=== PATIENT | female | born 1975 ===

== ENCOUNTER 2021-12-29 09:12 | Outpatient (REF) | payer OTHER, SELFPAY ==
[2021-12-29 10:06] LABS: COVID-19 Test Positive (Negative)
== END 2021-12-29 09:13 | disposition home or self-care (01) ==
LOC: HO.LAB 09:12
PROVIDERS: Visit Provider Internal Medicine
DX: Z20.822 Contact with and (suspected) exposure to COVID-19 (principal)
CPT/HCPCS: 87635; C9803

== ENCOUNTER 2022-01-08 10:44 | Outpatient (REF) | payer OTHER, SELFPAY ==
[2022-01-08 11:40] LABS: COVID-19 Test Negative (Negative)
== END 2022-01-08 10:45 | disposition home or self-care (01) ==
LOC: HO.LAB 10:44
PROVIDERS: Visit Provider Internal Medicine
DX: Z20.822 Contact with and (suspected) exposure to COVID-19 (principal)
CPT/HCPCS: 87635; C9803

== ENCOUNTER 2022-01-25 20:06 | Emergency (ER) | payer OTHER, SELFPAY ==
--- NOTE | 2022-01-25 | ECG_ITS ---
Test Reason : cp Blood Pressure : / mmHG Vent. Rate : 108 BPM Atrial Rate : 108 BPM P-R Int : 142 ms QRS Dur : 070 ms QT Int : 342 ms P-R-T Axes : 062 007 058 degrees QTc Int : 458 ms Sinus tachycardia with frequent Premature ventricular complexes Right atrial enlargement Cannot rule out Anterior infarct , age undetermined Abnormal ECG No previous ECGs available Referred By: Generic ED Physician Electronically Signed By:DERIAN MCCARTHY MD
--- NOTE | ~2022-01-25 | XR_ITS ---
EXAMINATION: XR CHEST CLINICAL INFORMATION: Shortness of breath. Evaluate for pneumonia. COMPARISON: None TECHNIQUE: AP view of the chest was obtained. FINDINGS: Prominent cardiomediastinal silhouette with diffuse interstitial thickening. No focal airspace opacity. No significant pleural effusion. No pneumothorax. No acute osseous abnormalities. XR/XR chest 1V IMPRESSION: Prominent cardiomediastinal silhouette could be seen with cardiomegaly. Correlate with medical history. Increased interstitial markings is nonspecific and could be associated with pulmonary edema, atypical infections, asthma or reactive airways disease.
[2022-01-25 20:35] VITALS: BP 189/96; PULSE 56; RESP 24; TEMP 37.1; O2SAT 97; BMI 69.1
[2022-01-25 20:59] LABS: MANUAL DIFF FLAG NO
[2022-01-25 21:01] LABS: Basophils Absolute Auto 0.1 X10*3/uL (0.0-0.2); Basophils Percent Auto 0.7 % (0-2); Eosinophils Absolute Auto 0.4 X10*3/uL (0.0-0.4); Eosinophils Percent Auto 5.8 % (0-4); Hematocrit 38.9 % (37.0-47.0); Hemoglobin 12.6 g/dl (12.0-16.0); Imm Gran Abs Auto 0.04 X10*3/uL (0.00-0.03); Imm Gran Pct Auto 0.6 % (0.0-0.4); Lymphocytes Absolute Auto 1.7 X10*3/uL (1.2-4.9); Mean Corpuscular HGB Conc 32.4 g/dl (31.0-35.0); Mean Corpuscular Volume 86.4 fL (80.0-98.0); Mean Platelet Volume 10.2 fL (9.4-12.3); Monocytes Absolute Auto 0.7 X10*3/uL (0.1-1.2); Monocytes Percent Auto 9.7 % (2-11); Neutrophils Absolute Auto 3.9 x10*3/uL (2.0-8.3); Neutrophils Percent Auto 58.2 % (45-73); Platelet Count 278 X10*3/uL (160-400); White Blood Count 6.7 X10*3/uL (4.8-10.8)
[2022-01-25 21:11] VITALS: BP 150/87; PULSE 84; RESP 20; O2SAT 96
[2022-01-25 21:16] LABS: COVID-19 Test Negative (Negative); IDNOW Serial# 9DB6401D
[2022-01-25 21:22] LABS: Alanine Aminotransferase 25 U/L (0-31); Alkaline Phosphatase 102 U/L (39-117); Anion Gap 15 (12-20); Aspartate Amino Transferase 18 U/L (5-31); Bilirubin Total 0.4 mg/dL (0.0-1.0); Blood Urea Nitrogen 11 mg/dL (9-16); Calcium 8.9 mg/dL (8.4-10.2); Carbon Dioxide 23 mmol/L (22-29); Chloride 105 mmol/L (96-108); Creatinine Clr Calc Pharmacy 115.9; Estimated Glomerular Filt Rate > 60; Glucose Random 181 mg/dL (60-115); Potassium 3.8 mmol/L (3.3-5.1); Sodium 139 mmol/L (135-145); Total Protein 7.1 g/dL (6.5-8.0)
--- NOTE | 2022-01-25 21:24 | ED_ITS ---
HPI - General Adult General Chief complaint: Upper Respiratory Symptoms Stated complaint: right sided pain, swollen side Time Seen by Provider: 01/25/22 21:09 Source: patient Mode of arrival: ambulatory Limitations: no limitations History of Present Illness HPI narrative: Patient comes to the emergency room complaining of right lower back pain for over a month, worsened by coughing. Patient states that she has been seen by her primary care physician. Patient has also been seen by her director of development and marketing. Patient denies chest pain, no hematuria or dysuria. Patient states that she has been taking a large amount of cranberry juice in case this is a UTI. Denies dysuria or hematuria. Patient also reports pitting edema in the lower extremities for the last 3-4 weeks to Related Data Previous Rx's Medication Instructions Recorded cyclobenzaprine 10 mg tablet 10 mg PO TID PRN muscle spasm #10 01/26/22 tabs furosemide 20 mg tablet (Lasix) 10 mg PO BID #7 tabs 01/26/22 Allergies Allergy/AdvReac Type Severity Reaction Status Date / Time No Known Allergies Allergy Verified 01/25/22 21:17 Review of Systems Review of Systems: Constitutional : No Weight loss, No Fever, No Chills, No Night Sweats, No Fatigue, No Malaise ENT/Mouth : No Hearing loss, No Ear Pain, No Nasal Congestion, No Sinus Pain, No Hoarseness, No sore throat, No Rhinorrhea, No Swallowing Difficulty Eyes: No Eye Pain, No Swelling, No Redness, No Foreign Body, No Discharge, No Vision Changes Cardiovascular : No Chest Pain, new lower extremity edema Respiratory : Calming of cough, wheezing, intermittent shortness of breath. Gastrointestinal : No Nausea, No Vomiting, No Diarrhea, No Constipation, No abdominal Pain, No Hematochezia, No Melena Genitourinary : no irregular bleeding, No Dysuria, No Urinary Frequency, No Hematuria, No Urinary Incontinence, No Urgency, No Flank Pain, No Urinary Flow Changes, No Hesitancy Musculoskeletal : No joint pain, No Myalgias, No Joint Swelling, complaining of lower back pain on the right side Skin : No Skin Lesions, No rash Neuro : No Weakness, No Numbness, No Paresthesias, No Loss of Consciousness, No Dizziness, No Headache Psych : No Anxiety/Panic, No Depression, No SI/HI/AH/VH, No Social Issues, Heme/Lymph: No Bruising, No Bleeding,No Lymphadenopathy Endocrine : No Polyuria, No Polydipsia, No Temperature Intolerance [facility] Past Medical History Medical History (Updated 01/26/22 @ 00:17 by Alice Lei MD) Anxiety Asthma Bipolar disorder Depression Hypertension Morbid obesity Social History Social History Advance Directives: No Advance Directives Information Provided: Yes Physical Exam ED Vital Signs: Vital Signs - 24 hr 01/25/22 20:35 01/25/22 21:11 01/25/22 21:11 Temperature 98.7 F Pulse Rate 56 84 Respiratory Rate 24 H 20 Blood Pressure 189/96 H 150/87 H Pulse Oximetry 97 96 96 Oxygen Delivery Method Room Air Room Air Room Air 01/25/22 21:36 01/25/22 23:18 Temperature Pulse Rate 62 95 Respiratory Rate 20 22 H Blood Pressure 137/62 Pulse Oximetry 94 Oxygen Delivery Method Room Air BMI result Body Mass Index 69.1 Const Other: Appearance: Alert. Oriented X3. No acute distress. Patient is morbidly obese Eyes: Pupils equal, round and reactive to light. ENT: Pharynx normal. Neck: Normal inspection. Neck supple. No lymph nodes noted. No crepitus CVS: Normal heart rate and rhythm. Pulses normal. Normal S1 and S2 Respiratory: No respiratory distress. Bilateral wheezing, moderate air movement, oxygen saturation 96% on room air Abdomen: Soft and nontender. No rigidity. No distention. Skin: Skin warm and dry. Normal skin color. Normal skin turgor. Extremities: +1 pitting edema bilaterally, No Lacerations. No Rash Neuro: Oriented X 3. No motor deficit. No sensory deficit. Moving all extremities. No slurred speech. CN 2 through 12 grossly intact Psych: calm, cooperative, normal affect Course Course Course Narrative: Urine, labs pending, COVID test pending as well. Patient is receiving a breathing treatment, IV Solu-Medrol, magnesium Breathing better, oxygen saturation remains 96% on room ai. Urinalysi negative for UTI. Patient will be given 3 days of Lasix for the lower extremity edema. Patient instructed to follow-up with her primary care physician. Medical Decision Making Lab Data Result diagrams: 01/25/22 20:51 01/25/22 20:51 Labs: Lab Results 06/19/22 06/19/22 06/19/22 Range/Units 20:51 20:51 20:51 WBC 6.7 (4.8-10.8) X10*3/uL RBC 4.50 (4.20-5.50) X10*6/uL Hgb 12.6 (12.0-16.0) g/dl Hct 38.9 (37.0-47.0) % MCV 86.4 (80.0-98.0) fL MCH 28.0 (27.0-33.0) pg MCHC 32.4 (31.0-35.0) g/dl RDW 15.0 (11.0-16.0) % Plt Count 278 (160-400) X10*3/uL MPV 10.2 (9.4-12.3) fL Immature Gran % (Auto) 0.6 H (0.0-0.4) % Neut % (Auto) 58.2 (45-73) % Lymph % (Auto) 25.0 (20-40) % [place] % (Auto) 9.7 (2-11) % Eos % (Auto) 5.8 H (0-4) % Baso % (Auto) 0.7 (0-2) % Lymph # (Auto) 1.7 (1.2-4.9) X10*3/uL [place] # (Auto) 0.7 (0.1-1.2) X10*3/uL Eos # (Auto) 0.4 (0.0-0.4) X10*3/uL Baso # (Auto) 0.1 (0.0-0.2) X10*3/uL Abs Immat Gran (auto) 0.04 H (0.00-0.03) X10*3/uL Absolute Neuts (auto) 3.9 (2.0-8.3) x10*3/uL Absolute Nucleated RBC 0.000 (0.0-0.012) X10*3/uL Nucleated RBC % (auto) 0.0 (0.0-0.2) /100WBC Sodium 139 (135-145) mmol/L Potassium 3.8 (3.3-5.1) mmol/L Chloride 105 (96-108) mmol/L Carbon Dioxide 23 (22-29) mmol/L Anion Gap 15 (12-20) BUN 11 (9-16) mg/dL Creatinine 0.93 (0.5-1.4) mg/dL Estim Creat Clear Calc 115.9 Estimated GFR > 60 Random Glucose 181 H (60-115) mg/dL Calcium 8.9 (8.4-10.2) mg/dL Total Bilirubin 0.4 (0.0-1.0) mg/dL AST 18 (5-31) U/L ALT 25 (0-31) U/L Alkaline Phosphatase 102 (39-117) U/L B-Natriuretic Peptide 78 (<100) pg/mL Total Protein 7.1 (6.5-8.0) g/dL Albumin 4.0 (3.5-5.0) g/dL Urine Color Urine Appearance Urine pH (5.0-8.0) Ur Specific [place] (1.005-1.025) Urine Protein (NEG-TRACE) MG/DL Urine Glucose (UA) (NEG) MG/DL Urine Ketones (NEG) MG/DL Urine Blood (NEG) Urine Nitrite (NEG) Ur Leukocyte Esterase (NEG) COVID-19 (JANIS) (Negative) COVID-19 Clin Com 01/25/22 01/25/22 Range/Units 20:52 23:48 WBC (4.8-10.8) X10*3/uL RBC (4.20-5.50) X10*6/uL Hgb (12.0-16.0) g/dl Hct (37.0-47.0) % MCV (80.0-98.0) fL MCH (27.0-33.0) pg MCHC (31.0-35.0) g/dl RDW (11.0-16.0) % Plt Count (160-400) X10*3/uL MPV (9.4-12.3) fL Immature Gran % (Auto) (0.0-0.4) % Neut % (Auto) (45-73) % Lymph % (Auto) (20-40) % [place] % (Auto) (2-11) % Eos % (Auto) (0-4) % Baso % (Auto) (0-2) % Lymph # (Auto) (1.2-4.9) X10*3/uL [place] # (Auto) (0.1-1.2) X10*3/uL Eos # (Auto) (0.0-0.4) X10*3/uL Baso # (Auto) (0.0-0.2) X10*3/uL Abs Immat Gran (auto) (0.00-0.03) X10*3/uL Absolute Neuts (auto) (2.0-8.3) x10*3/uL Absolute Nucleated RBC (0.0-0.012) X10*3/uL Nucleated RBC % (auto) (0.0-0.2) /100WBC Sodium (135-145) mmol/L Potassium (3.3-5.1) mmol/L Chloride (96-108) mmol/L Carbon Dioxide (22-29) mmol/L Anion Gap (12-20) BUN (9-16) mg/dL Creatinine (0.5-1.4) mg/dL Estim Creat Clear Calc Estimated GFR Random Glucose (60-115) mg/dL Calcium (8.4-10.2) mg/dL Total Bilirubin (0.0-1.0) mg/dL AST (5-31) U/L ALT (0-31) U/L Alkaline Phosphatase (39-117) U/L B-Natriuretic Peptide (<100) pg/mL Total Protein (6.5-8.0) g/dL Albumin (3.5-5.0) g/dL Urine Color YELLOW Urine Appearance CLEAR Urine pH 7.0 (5.0-8.0) Ur Specific [place] 1.020 (1.005-1.025) Urine Protein NEG (NEG-TRACE) MG/DL Urine Glucose (UA) NEG (NEG) MG/DL Urine Ketones NEG (NEG) MG/DL Urine Blood NEG (NEG) Urine Nitrite NEG (NEG) Ur Leukocyte Esterase NEG (NEG) COVID-19 (JANIS) Negative (Negative) COVID-19 Clin Com See Note Imaging Data Chest x-ray: Radiologist's impression: FINDINGS: Prominent cardiomediastinal silhouette with diffuse interstitial thickening. No focal airspace opacity. No significant pleural effusion. No pneumothorax. No acute osseous abnormalities. XR/XR chest 1V IMPRESSION: Prominent cardiomediastinal silhouette could be seen with cardiomegaly. Correlate with medical history. ? Increased interstitial markings is nonspecific and could be associated with pulmonary edema, atypical infections, asthma or reactive airways disease. ? Discharge Plan Discharge Clinical Impression: Acute right-sided back pain, Asthma, Bilateral lower extremity edema Patient Disposition: Home, Self-Care Instructions: Asthma (ED), Edema (ED) Additional Instructions: Please follow-up with your primary care physician and director of development and marketing tomorrow. If you have any worsening or new symptoms, please return to the emergency room or call 911 Prescriptions: New cyclobenzaprine 10 mg tablet 10 mg PO TID PRN (Reason: muscle spasm) Qty: 10 0RF furosemide [Lasix] 20 mg tablet 10 mg PO BID Qty: 7 0RF
[2022-01-25] MEDS: Albuterol Sulfate (0.083%) 2.5 MG/3 ML VIAL.NEB 5 MG INHALE (21:34)
[2022-01-25 21:36] VITALS: PULSE 62; RESP 20; O2SAT 98
[2022-01-25 21:47] LABS: B Type Natriuretic Peptide 78 pg/mL (<100)
[2022-01-25] MEDS: Magnesium Sulfate/H2O 2 GM/50 ML PIGGYBACK IV (21:48)
[2022-01-25] MEDS: Benzonatate 100 MG CAPSULE 200 MG PO (21:48)
[2022-01-25] MEDS: methylPREDNISolone Sod Succ 125 MG/2 ML VIAL IVPUSH (21:48)
[2022-01-25 23:18] VITALS: BP 137/62; PULSE 95; RESP 22; O2SAT 94
[2022-01-26] LABS: Appearance Urine CLEAR; Color Urine YELLOW; Glucose Urine UA NEG (NEG); Leukocyte Esterase Urine NEG (NEG); Nitrite Urine NEG (NEG); Urine Blood NEG (NEG); Urine Ketones NEG (NEG); Urine Protein NEG (NEG-TRACE)
== END 2022-01-26 00:30 | disposition home or self-care (01) ==
PROVIDERS: Emergency Provider Emergency Medicine
DX: M54.50 Low back pain, unspecified (principal); R60.0 Localized edema; R07.89 Other chest pain; J45.909 Unspecified asthma, uncomplicated; R06.02 Shortness of breath; Z20.822 Contact with and (suspected) exposure to COVID-19; Z79.899 Other long term (current) drug therapy
CPT/HCPCS: 36415; 71045; 80053; 81003; 83880; 85025; 87635; 93005; 94640; 94644; 96365; 96366; 99284; 99285; J2930; J3475

== ENCOUNTER 2022-01-27 10:18 | Outpatient (REF) | payer OTHER, SELFPAY ==
[2022-01-27 10:42] LABS: MANUAL DIFF FLAG NO
[2022-01-27 11:47] LABS: Basophils Absolute Auto 0.1 X10*3/uL (0.0-0.2); Basophils Percent Auto 0.6 % (0-2); Eosinophils Absolute Auto 0.1 X10*3/uL (0.0-0.4); Eosinophils Percent Auto 0.7 % (0-4); Hematocrit 40.2 % (37.0-47.0); Hemoglobin 12.8 g/dl (12.0-16.0); Imm Gran Abs Auto 0.07 X10*3/uL (0.00-0.03); Imm Gran Pct Auto 0.8 % (0.0-0.4); Lymphocytes Absolute Auto 2.9 X10*3/uL (1.2-4.9); Lymphocytes Percent Auto 31.9 % (20-40); Mean Corpuscular HGB Conc 31.8 g/dl (31.0-35.0); Mean Corpuscular Hemoglobin 28.1 pg (27.0-33.0); Mean Corpuscular Volume 88.4 fL (80.0-98.0); Monocytes Absolute Auto 0.6 X10*3/uL (0.1-1.2); Neutrophils Absolute Auto 5.3 x10*3/uL (2.0-8.3); Platelet Count 282 X10*3/uL (160-400); Red Blood Count 4.55 X10*6/uL (4.20-5.50); Red Cell Distribution Width 15.5 % (11.0-16.0)
[2022-01-27 12:30] LABS: Erythrocyte Sedimentation Rate 42 MM/HR (0-20)
[2022-01-27 12:33] LABS: Anion Gap 14 (12-20); Blood Urea Nitrogen 16 mg/dL (9-16); Calcium 9.2 mg/dL (8.4-10.2); Carbon Dioxide 23 mmol/L (22-29); Chloride 107 mmol/L (96-108); Estimated Glomerular Filt Rate > 60; Glucose Random 122 mg/dL (60-115); Potassium 4.2 mmol/L (3.3-5.1); Sodium 140 mmol/L (135-145)
[2022-02-02 20:42] LABS: IgA 335 mg/dL (47-310); IgG 1018 mg/dL (600-1640); IgM 119 mg/dL (50-300)
== END 2022-01-27 10:19 | disposition home or self-care (01) ==
LOC: HO.LAB 10:18
PROVIDERS: Visit Provider Hospitalist
DX: J45.909 Unspecified asthma, uncomplicated (principal); I27.20 Pulmonary hypertension, unspecified; I51.7 Cardiomegaly
CPT/HCPCS: 36415; 80048; 82784; 82785; 85025; 85652; 86003; 99202

== ENCOUNTER 2022-02-09 18:32 | Emergency (ER) | payer OTHER, SELFPAY ==
[2022-02-09 18:40] VITALS: BP 186/117; PULSE 78; RESP 20; TEMP 36.5; O2SAT 98; BMI 68.1
[2022-02-09 21:38] VITALS: BP 188/101; PULSE 95; RESP 26; O2SAT 98
--- NOTE | 2022-02-09 21:48 | ED_ITS ---
HPI - General Adult General Chief complaint: Headache Stated complaint: headaches/high BP 193/95/vomiting Time Seen by Provider: 02/09/22 21:43 Source: patient Limitations: no limitations History of Present Illness HPI narrative: this is a 46-year-old female with a history of migraines, who has not had a severe headache and several years, who had gradual onset of a headache this morning, which is central and was associated with about 4 versus vomiting. The patient denies any visual changes. She denies any neck stiffness or photophobia. She denies any abdominal pain. She denies any focal weakness or numbness in arms or face or legs. She also noted her blood pressure was high today. She is on lisinopril. She states her headache is about a 10/10 in severity, dull. Related Data Home Medications Medication Instructions Recorded Confirmed albuterol sulfate 2.5 mg inhalation Q4-6H PRN 01/27/22 albuterol sulfate 90 mcg/actuation 2 puff inhalation Q6H PRN 01/27/22 aerosol inhaler (ProAir HFA) benzonatate 100 mg capsule 100 mg PO TID PRN cough 01/27/22 duloxetine 20 mg capsule,delayed 40 mg PO DAILY 01/27/22 release duloxetine 60 mg capsule,delayed 60 mg PO DAILY 01/27/22 release fluticasone fur. 200 mcg-umeclid 1 ea inhalation DAILY 01/27/22 62.5 mcg-vilant 25 mcg inhalat.powder (Trelegy Ellipta) montelukast 10 mg tablet 10 mg PO DAILY 01/27/22 Previous Rx's Medication Instructions Recorded cyclobenzaprine 10 mg tablet 10 mg PO TID PRN muscle spasm #10 01/26/22 tabs furosemide 20 mg tablet (Lasix) 10 mg PO BID #7 tabs 01/26/22 benzonatate 200 mg capsule 200 mg PO BID PRN cough 30 days 01/27/22 #60 caps furosemide 20 mg tablet (Lasix) 20 mg PO DAILY #14 tabs 01/27/22 prednisone 20 mg tablet See Rx Instructions PO DAILY 10 01/27/22 days #15 tabs dextromethorphan-guaifenesin 5 10 ml PO Q6H PRN cough 14 days 02/03/22 mg-100 mg/5 mL oral liquid #400 mL (Cough-Chest Congestion DM) Allergies Allergy/AdvReac Type Severity Reaction Status Date / Time No Known Allergies Allergy Verified 02/09/22 18:47 Review of Systems Review of Systems: Yes all other systems are reviewed and are negative Constitutional: Constitutional: Reports as per HPI, Denies fever(s) and Reports headache(s) Eyes: Eyes: Reports as per HPI and Reports no additional eye complaints ENT: Reports system reviewed and no additional complaints, except as documented, Reports as per HPI, Reports headache(s), Denies nasal congestion, Denies nasal discharge, Denies neck pain and Denies sore throat Cardiovascular: Cardiovascular: Reports as per HPI, Denies chest pain and Denies dyspnea Respiratory: Respiratory: Reports as per HPI, Denies cough and Denies dyspnea Gastrointestinal: Gastrointestinal: Reports as per HPI, Denies abdominal pain, Denies diarrhea, Reports nausea and Reports vomiting Genitourinary: Genitourinary: Reports as per HPI, Denies hematuria, Denies urinary frequency and Denies dysuria Musculoskeletal: Musculoskeletal: Reports no additional musculoskeletal complaints, Denies neck pain and Denies numbness Integumentary/Breasts: Skin/Breast: Reports as per HPI and Denies rash Neurologic: Reports as per HPI, Reports headache(s), Denies focal weakness and Denies numbness Psychiatric: Psychiatric: Reports no additional psychiatric complaints and Reports as per HPI Endocrine: Endocrine: Reports no additional endocrine complaints and Reports as per HPI Hematologic/Lymphatic: Hematologic/Lymphatic: Reports no additional hematologic/lymphatic complaints, Reports as per HPI and Reports other (No peripheral edema) [facility] Past Medical History Medical History (Updated 02/09/22 @ 23:47 by Eduardo Salazar MD) Anxiety Asthma Bipolar disorder Depression Hypertension Social History Social History (Updated 01/27/22 @ 09:49 by BARBARA Foster) Patient Tobacco Use Status: Never used Tobacco Advance Directives: No Advance Directives Information Provided: No Physical Exam ED Vital Signs: Vital Signs - 24 hr 02/09/22 18:40 02/09/22 21:38 02/09/22 22:11 Temperature 97.7 F Pulse Rate 78 95 94 Respiratory Rate 20 26 H Blood Pressure 186/117 H 188/101 H 165/92 H Pulse Oximetry 98 98 98 Oxygen Delivery Method Room Air Room Air Room Air BMI result Body Mass Index 68.1 Const Other: Morbidly obese General: no acute distress Orientation/consciousness: patient oriented x3 HENMT Head: Yes normal to inspection General nose exam: Normal external nose present Mouth: moist mucous membranes Throat: Yes posterior oropharynx normal, Yes tonsils normal and Yes uvula midline Eyes Eyelids: Yes eyelids normal Conjunctivae: conjunctivae normal Pupils: Equal, round and reactive pupils present Neck Neck: Yes supple Resp Effort & Inspection: normal respiratory effort Auscultation: clear to auscultation bilaterally Cardio Rate: regular rate Rhythm: regular rhythm Heart sounds: S1 normal heart sound present, S2 normal heart sound present, no gallops, no murmurs and no rubs GI Inspection: No distended Palpation (GI): Soft to palpation and nontender Auscultation: normal bowel sounds Skin General skin exam: other (Warm and dry) Neuro General: patient oriented x3 and CN's II-XI intact bilaterally Cranial nerves: Yes Equal, round and reactive pupils present Extrem General: Yes no pedal edema Psych Affect: normal affect Attitude: cooperative Course Course Course Narrative: Patient was treated with Toradol IM, Reglan IM, Ativan IM, clonidine 0.2 mg p.o.. Her blood pressure improved and she felt much better. Patient has noted that she has been urinating more frequently but denied any dysuria or urinary frequency. Blood sugar was checked and was 155. Patient was recently put on Lasix, however she states she has not taken it recently. Offered urinalysis but the patient was wanting to go home, can follow-up with her primary care physician Medical Decision Making Lab Data Labs: Lab Results 02/09/22 Range/Units 23:26 POC Glucose 155 H (60-115) mg/dL Discharge Plan Discharge Clinical Impression: Headache, Vomiting, Hypertension Patient Disposition: Home, Self-Care Instructions: Acute Headache (ED), Acute Nausea and Vomiting (ED), Chronic Hypertension (ED) Additional Instructions: Follow-up with primary care physician. Continue current medications. If you continue having urinary frequency, have your urine checked by her primary care physician Prescriptions: No Action Cough-Chest Congestion DM 5-100 mg/5 mL liquid 10 ml PO Q6H PRN (Reason: cough) 14 Days Qty: 400 0RF cyclobenzaprine 10 mg tablet 10 mg PO TID PRN (Reason: muscle spasm) Qty: 10 0RF furosemide [Lasix] 20 mg tablet 10 mg PO BID Qty: 7 0RF duloxetine 60 mg capsule,delayed release(DR/EC) 60 mg PO DAILY duloxetine 20 mg capsule,delayed release(DR/EC) 40 mg PO DAILY montelukast 10 mg tablet 10 mg PO DAILY Trelegy Ellipta 200-62.5-25 mcg blister with device 1 ea inhalation DAILY benzonatate 100 mg capsule 100 mg PO TID PRN (Reason: cough) albuterol sulfate 2.5 mg /3 mL (0.083 %) solution for nebulization 2.5 mg inhalation Q4-6H PRN albuterol sulfate [ProAir HFA] 90 mcg/actuation HFA aerosol inhaler 2 puff inhalation Q6H PRN benzonatate 200 mg capsule 200 mg PO BID PRN (Reason: cough) 30 Days Qty: 60 5RF furosemide [Lasix] 20 mg tablet 20 mg PO DAILY Qty: 14 0RF prednisone 20 mg tablet See Rx Instructions PO DAILY 10 Days Qty: 15 0RF Rx Instructions: PO daily; Take 2 tabs daily x 5 days, then 1 tablet daily x 5 days Interventions: ED Discharge Assessment Last Done: 02/09/22 23:56 Discharge Date/Time: 02/10/22 00:00
[2022-02-09] MEDS: Ketorolac Tromethamine 30 MG/ML VIAL IM (21:54)
[2022-02-09] MEDS: cloNIDine HCL 0.2 MG TABLET PO (21:54)
[2022-02-09] MEDS: LORazepam 1 MG TABLET PO (21:54)
[2022-02-09] MEDS: Metoclopramide HCl 10 MG/2 ML VIAL IM (21:55)
[2022-02-09 22:11] VITALS: BP 165/92; PULSE 94; O2SAT 98
[2022-02-09 23:30] LABS: Glucose, Whole Blood 155 mg/dL (60-115)
== END 2022-02-10 | disposition home or self-care (01) ==
PROVIDERS: Emergency Provider Emergency Medicine
DX: R51.9 Headache, unspecified (principal); I10 Essential (primary) hypertension; R11.10 Vomiting, unspecified
CPT/HCPCS: 82947; 96372; 99284; J1885; J2765

== ENCOUNTER → 2022-02-24 09:34 | Outpatient (BNVA) | payer OTHER, SELFPAY | PROVIDERS: PCP Internal Medicine; Visit Provider Hospitalist | DX: J45.50 Severe persistent asthma, uncomplicated (principal); G47.33 Obstructive sleep apnea (adult) (pediatric); I51.7 Cardiomegaly | CPT/HCPCS: 99212 ==

== ENCOUNTER → 2022-03-12 10:35 | Outpatient (REF) | payer OTHER, SELFPAY ==
--- NOTE | 2022-03-12 10:37 | CA_ITS ---
Transthoracic Echocardiogram Patient (Last, First, Middle): Mariaelena Green J Gender: Female Date of : 1975 Age: 46 Procedure Date: 03/12/2022 Procedure Type: Transthoracic Echocardiogram Location: OP Height: 154.94 cm Weight: 162.84 kg BSA: 2.42 m2 Heart Rate: bpm BP: 130 / 75 mmHg [employer] Pl[employer] Workman: TO Referring MD: Juice Major MD Envelope Sealer: Sebastian Goldman MD Symptoms: I27.20 - Pulmonary hypertension, unspecified Study Quality: Technically Difficult/Contrast ECG Rhythm: Sinus Conclusions: - 1. Technically limited study despite use of contrast agent 2. Normal LV systolic function and diastolic function 3. Limited visualization of cardiac valves with normal cardiac valvular Doppler 4. Normal RV systolic pressure Findings Procedure Information Contrast agent, definity, is being given per protocol without apparent complications. Left Ventricle Normal left ventricular size, thickness, and systolic function. The visually estimated ejection fraction is between 60-65%. Spectral Doppler is indicative of a normal filling pattern. Right Ventricle Normal right ventricular cavity size and systolic function. Atria The left atrium is normal in size. Interatrial shunt cannot be excluded. The right atrium was not well visualized. Aortic Valve The aortic valve was not well visualized. There is no aortic valve stenosis. There is no aortic valve regurgitation. Mitral Valve Likely normal mitral valve structure and function. There is trace mitral valve regurgitation. There is no mitral valve stenosis. Pulmonic Valve The pulmonic valve was not well visualized. Tricuspid Valve The tricuspid valve was not well visualized. There is trace tricuspid valve regurgitation. The right ventricular systolic pressure is normal. The right ventricular systolic pressure is 21 mmHg. There is no evidence of pulmonary hypertension. Great Vessels The aorta was not well visualized. The pulmonary artery was not well visualized. Venous The inferior vena cava is normal in size. Pericardium/Pleural The pericardium was not well visualized. Prior Study Comparison No prior study available for comparison. Measurements 2D Linear Measurements IVSd: 0.89 0.6-0.9/0.6-1.0 cm LVIDd: 5.57 3.9-5.3/4.2-5.9 cm LVIDd Index: 2.30 2.4-3.2/2.2-3.1 cm/m2 LVIDs: 3.93 2.0-3.6 cm LVPWd: 0.97 0.7-1.1 cm LA Diam: 4.00 2.7-3.8/3.0-4.0 cm LAIDs Index: 1.65 1.5-2.3 cm/m2 LV Mass: 246.17 67-162/88-224 g LV Mass Index: 101.72 43-95/49-115 g/m2 LVOT Diam: 2.00 3.0+(-)1.3 cm 2D Systolic Function EF 4C: 58.30 >55% EF 2C: 61.60 >55% EF BiP: 60.90 >55% Mitral Valve MV Pk E: 0.95 MV PK A: 0.49 MV Decel Time: 176.00 E/A: 1.90 E'Lateral: 10.10 E'Medial: 7.83 E/E' Med: 12.10 E/E' Lat: 9.40 PHT: 48.00 MVA PHT: 4.58 Decel Major: 5.99 Aortic Valve AoV Pk Tarun: 1.51 AoV Mn Tarun: 0.99 AoV VTI: 0.29 AoV Pk Grad: 9.00 Aov Mn Grad: 4.00 RANDY Cont.VTI: 2.55 LVOT LVOT Pk Tarun: 1.20 LVOT Mn Tarun: 0.76 LVOT VTI: 0.23 LVOT Pk Grad: 6.00 LVOT Mn Grad: 3.00 LVOT Diam: 2.00 LVOT Area: 3.14 Diastolic Function MV Pk E: 0.95 MV Pk A: 0.49 E/A: 1.90 E'Medial: 7.83 E/E' Med: 12.10 E' Laterial: 10.10 E/E' Lat: 9.40 Right Ventricle TAPSE (mm): 27.20 TVS' Tarun: 12.70 Tricuspid Valve TR Pk Tarun: 1.81 TR Pk Grad: 13.00 RA Press: 8.00 RVSP: 21.00 Great Vessels Aorta Sinus of Valsalva: 2.84 2.0-3.5 cm Ao Asc: 2.90 2.1-3.4 cm Updated in Other Vendor System with Status of Final Sebastian Goldman MD electronically signed on 03/13/2022 4:50:23 PM with status of Final
== END ==
LOC: HO.CARD 10:35
PROVIDERS: Visit Provider Hospitalist
DX: I27.20 Pulmonary hypertension, unspecified (principal)
CPT/HCPCS: 93306; Q9957

== ENCOUNTER 2022-04-29 11:05 | Outpatient (REF) | payer OTHER, SELFPAY ==
[2022-04-29 11:48] LABS: COVID-19 Test Negative (Negative); IDNOW Serial# 16C4AD1C
== END 2022-04-29 11:06 | disposition home or self-care (01) ==
LOC: HO.LAB 11:05
PROVIDERS: Visit Provider Internal Medicine
DX: Z20.822 Contact with and (suspected) exposure to COVID-19 (principal)
CPT/HCPCS: 87635; C9803

== ENCOUNTER → 2022-05-08 13:29 | Outpatient (BNVA) | payer OTHER, SELFPAY | PROVIDERS: PCP Internal Medicine; Visit Provider Hospitalist | DX: J45.51 Severe persistent asthma with (acute) exacerbation (principal); I51.7 Cardiomegaly; G47.33 Obstructive sleep apnea (adult) (pediatric); Z79.899 Other long term (current) drug therapy | CPT/HCPCS: 99212 ==

== ENCOUNTER → 2022-07-10 13:55 | Outpatient (BNVA) | payer OTHER, SELFPAY | PROVIDERS: PCP Internal Medicine; Visit Provider Hospitalist | DX: J45.51 Severe persistent asthma with (acute) exacerbation (principal); I51.7 Cardiomegaly; G47.33 Obstructive sleep apnea (adult) (pediatric); Z23 Encounter for immunization; Z79.899 Other long term (current) drug therapy | CPT/HCPCS: 90471; 90686; 99212 ==

== ENCOUNTER → 2022-10-27 13:57 | Outpatient (BNVA) | payer OTHER, SELFPAY | PROVIDERS: PCP Internal Medicine; Visit Provider Hospitalist | DX: J45.51 Severe persistent asthma with (acute) exacerbation (principal); G47.33 Obstructive sleep apnea (adult) (pediatric); I51.7 Cardiomegaly; Z79.899 Other long term (current) drug therapy | CPT/HCPCS: 99212 ==

== ENCOUNTER 2023-02-01 16:53 | Emergency (ER) | payer OTHER, SELFPAY ==
--- NOTE | ~2023-02-01 | US_ITS ---
EXAMINATION: US VENOUS ULTRASOUND WITH DOPPLER LOWER EXTREMITY, RIGHT CLINICAL INFORMATION: Pain and vomiting COMPARISON: None available. TECHNIQUE: Ultrasound of the deep veins is performed from the hip to the calf with compression sonography and color and pulse Doppler assessment. Spectral analysis with color-flow imaging is performed. FINDINGS: The exam is limited due to patient's body habitus. The exam is limited due to patient's body habitus. There is normal venous compression and respiratory variation and augmented flow. The visualized common femoral vein, superficial femoral vein, profunda femoral vein, popliteal vein, and the trifurcation region shows no evidence of deep venous thrombosis. Peroneal vein is not seen. There is small Plasencia's cyst measuring 4.3 x 1.2 x 3.0 cm. If the patient's symptoms persist, followup ultrasound in 5 days 7 days might be of value to exclude proximal propagation from a non-visualized calf vein. US/US venous duplex LE RT IMPRESSION: No DVT demonstrated in the right lower extremity.
[2023-02-01 17:45] VITALS: BP 158/80; PULSE 50; TEMP 36.8; O2SAT 96; BMI 67.2
--- NOTE | 2023-02-01 17:46 | ED_ITS ---
HPI - Extremity Problem General Chief complaint: Extremity Injury, Lower Stated complaint: right leg pain Time Seen by Provider: 02/01/23 21:16 Source: patient Mode of arrival: ambulatory Limitations: no limitations History of Present Illness MD Complaint: joint swelling (Right knee) and joint pain Onset (ago): month(s) (1) Pain Consistency: constant Location: right and knee Severity scale (1-10): 7 Quality: aching Radiation: none Relieving factors: nothing Exacerbating factors: range of motion, weight bearing, walking and palpation Associated symptoms: denies other symptoms Related Data Home Medications Medication Instructions Recorded Confirmed duloxetine 20 mg capsule,delayed 40 mg PO DAILY 01/27/22 release duloxetine 60 mg capsule,delayed 60 mg PO DAILY 01/27/22 release montelukast 10 mg tablet 10 mg PO DAILY 01/27/22 bupropion HCl 150 mg tablet,12 hr 150 mg PO BID 02/24/22 sustained-release gabapentin 300 mg capsule 0 mg PO 02/24/22 hydroxyzine HCl 25 mg tablet 25 mg PO BID PRN 02/24/22 topiramate 200 mg tablet (Topamax) 200 mg PO DAILY 02/24/22 loratadine 10 mg tablet 10 mg PO DAILY 07/10/22 nebulizers 10/27/22 Previous Rx's Medication Instructions Recorded albuterol sulfate 2.5 mg/3 mL 2.5 mg (3 mL) inhalation Q4-6H PRN 07/06/22 (0.083 %) solution for nebulization shortness of breath or wheezing #180 mL albuterol sulfate 90 mcg/actuation 2 puff inhalation Q6H PRN 07/06/22 aerosol inhaler shortness of breath or wheezing #1 ea furosemide 20 mg tablet (Lasix) 20 mg PO DAILY 14 days #14 tabs 07/10/22 benzonatate 200 mg capsule 200 mg PO BID PRN cough 30 days 10/27/22 #60 caps dextromethorphan-guaifenesin 5 10 ml PO Q6H PRN cough 14 days 10/27/22 mg-100 mg/5 mL oral liquid #400 mL (Cough-Chest Congestion DM) fluticasone fur. 200 mcg-umeclid 1 ea inhalation DAILY #60 ea 11/17/22 62.5 mcg-vilant 25 mcg inhalat.powder (Trelegy Ellipta) roflumilast 500 mcg tablet 500 mcg PO DAILY #30 tabs 12/08/22 meloxicam 15 mg tablet 15 mg PO DAILY #14 tabs 02/01/23 Allergies Allergy/AdvReac Type Severity Reaction Status Date / Time No Known Allergies Allergy Verified 02/01/23 17:53 Review of Systems Review of Systems: CONSTITUTIONAL: Denies weight loss, fever and chills. HEENT: Denies changes in vision and hearing. RESPIRATORY: Denies SOB and cough. CV: Denies palpitations no CP. GI: Denies abdominal pain, nausea, vomiting and diarrhea. : Denies dysuria and urinary frequency. MSK: + myalgia and joint pain. SKIN: Denies rash and pruritus. NEUROLOGICAL: Denies headache and syncope. PSYCHIATRIC: Denies recent changes in mood. Denies anxiety and depression. All other ROS are negative unless in HPI [facility] Past Medical History Medical History Anxiety Asthma Bipolar disorder Depression Hypertension Social History Social History Alcohol intake: never Patient Tobacco Use Status: Never used Tobacco Smoked in Last 30 Days: No Use of substances other than those prescribed or required for medical reasons: No Advance Directives: No Advance Directives Information Provided: No Patient : No Physical Exam Vital Signs: Vital Signs: Last Vital Signs Temp 98.2 F 02/01/23 17:45 Pulse 81 02/01/23 20:06 Resp 18 02/01/23 20:06 BP 185/111 H 02/01/23 20:06 Pulse Ox 100 02/01/23 20:06 O2 Del Method Room Air 02/01/23 20:06 BMI result Body Mass Index 67.2 GEN: Well developed, no acute distress, alert, oriented HEENT: Normocephalic, atraumatic, normal external ears, nose appears normal Eyes: Normal to appearance Neck: Supple, no lymphadenopathy Respiratory: Talks in complete sentences, no respiratory distress Extremities: No clubbing cyanosis or edema, tenderness to the right popliteal fossa Neurologic: No focal neurologic deficits, cranial nerves 2-12 intact, gait normal Skin: No rash Course Course Course Narrative: RME - 47 yo Latvian speaking female with history of morbid obesity, asthma, SHAJI, who presents to the ER for evaluation of worsening non-traumatic RLE pain for the last one month. Pain is located behind the knee and calf and she reports swelling as well. No chest pain or SOB. Plan: U/S RLE to r/o DVT Reevaluation(s) Reevaluation #1: Patient has an elevated blood pressure. I counseled her regarding follow-up with her primary care provider for further evaluation. This could very easily be due to pain related. Additionally, I have discussed results with the patient. We discussed the treatment of a Plasencia's cyst. She will start oral anti-inflammatory pain medications. She can follow up with her primary care provider if needed. She is aware she may need to follow-up with an orthopedist who made provider with the steroid injection however Plasencia sister typically recurrent Time: 22:08 Medications Administered Discontinued Medications Generic Name Dose Route Start Last Admin Trade Name Freq PRN Reason Stop Dose Admin Acetaminophen 975 mg 02/01/23 21:38 02/01/23 21:51 Acetaminophen 325 Mg Tablet PO 02/01/23 21:39 975 mg ONCE ONE Administration Ibuprofen 600 mg 02/01/23 21:38 02/01/23 21:51 Ibuprofen 600 Mg Tablet PO 02/01/23 21:39 600 mg ONCE ONE Administration Medical Decision Making Medical Decision Making MDM Narrative: 47-year-old female presents with right knee pain. Pain is in the popliteal area that can sometimes radiate anteriorly but does not radiate proximally or d istally. She denies any numbness or tingling. She denies any injury. She had no recent immobilization, history of PE or DVT. An ultrasound was ordered. Will evaluate for DVT. Differential diagnosis could also include Plasencia cyst, internal knee derangement, arthritis, muscle spasm, sprain, strain, ligamentous issue Differential Diagnosis Differential Diagnoses: The differential diagnosis associated with the presentation includes (See above) Independent Interpretation I performed an independent interpretation of an: Ultrasound (No DVT ultrasound right lower extremity) Radiology Impression Discussion of test interpretation with radiology: I have reviewed the radiologist's reading. (Ultrasound right lower extremity) Radiologist Impression: FINDINGS: The exam is limited due to patient's body habitus. The exam is limited due to patient's body habitus. There is normal venous compression and respiratory variation and augmented flow. The visualized common femoral vein, superficial femoral vein, profunda femoral vein, popliteal vein, and the trifurcation region shows no evidence of deep venous thrombosis. Peroneal vein is not seen. There is small Plasencia's cyst measuring 4.3 x 1.2 x 3.0? cm. If the patient's symptoms persist, followup ultrasound in 5 days 7 days might be of value to exclude proximal propagation from a non-visualized calf vein. US/US venous duplex LE RT IMPRESSION: No DVT demonstrated in the right lower extremity. Dictated By: Gary Pak MD Signed By: <Electronically signed by Gary Pak MD in OV> 02/01/232000 Independent Historian Clinical information obtained from an independent historian. History obtained from or confirmed by: Friend Prescription Management I considered prescription management with: Pain Medication Discharge Plan Discharge Clinical Impression: Plasencia cyst, Elevated blood pressure reading Patient Disposition: Home, Self-Care Instructions: Bakers Cyst (ED) Additional Instructions: Take Meloxicam 15 mg daily for 10-14 days Take tylenol 1000 mg every 6 hours as needed for additional pain relief Prescriptions: New meloxicam 15 mg tablet 15 mg PO DAILY Qty: 14 0RF No Action albuterol sulfate 90 mcg/actuation HFA aerosol inhaler 2 puff inhalation Q6H PRN (Reason: shortness of breath or wheezing) Qty: 1 0RF albuterol sulfate 2.5 mg /3 mL (0.083 %) solution for nebulization 2.5 mg inhalation Q4-6H PRN (Reason: shortness of breath or wheezing) Qty: 180 0RF Trelegy Ellipta 200-62.5-25 mcg blister with device 1 ea inhalation DAILY Qty: 60 4RF roflumilast 500 mcg tablet 500 mcg PO DAILY Qty: 30 0RF duloxetine 60 mg capsule,delayed release(DR/EC) 60 mg PO DAILY duloxetine 20 mg capsule,delayed release(DR/EC) 40 mg PO DAILY montelukast 10 mg tablet 10 mg PO DAILY gabapentin 300 mg capsule 0 mg PO hydroxyzine HCl 25 mg tablet 25 mg PO BID PRN bupropion HCl 150 mg tablet sustained-release 12 hr 150 mg PO BID topiramate [Topamax] 200 mg tablet 200 mg PO DAILY loratadine 10 mg tablet 10 mg PO DAILY furosemide [Lasix] 20 mg tablet 20 mg PO DAILY 14 Days Qty: 14 0RF (DME) nebulizers Misc See Rx Instructions .ROUTE Rx Instructions: As directed benzonatate 200 mg capsule 200 mg PO BID PRN (Reason: cough) 30 Days Qty: 60 6RF Cough-Chest Congestion DM 5-100 mg/5 mL liquid 10 ml PO Q6H PRN (Reason: cough) 14 Days Qty: 400 3RF Referrals: Maggie Maciel MD [Primary Care Provider] - 1 week (if needed) Interventions: ED Discharge Assessment Last Done: 02/01/23 21:55 Discharge Date/Time: 02/01/23 21:55
[2023-02-01 20:06] VITALS: BP 185/111; PULSE 81; RESP 18; O2SAT 100
--- NOTE | 2023-02-01 20:25 | PC.NURSE ---
Assumed care of pt. pt in wheelchair, assisted to chair in room, pt able to stand with minimal assistance. Pt c/o pain in R knee x 1 month, US completed, pending provider assessment.
[2023-02-01] MEDS: Ibuprofen 600 MG TABLET PO (21:51)
[2023-02-01] MEDS: Acetaminophen 325 MG TABLET 975 MG PO (21:51)
== END 2023-02-01 21:55 | disposition home or self-care (01) ==
PROVIDERS: Emergency Provider Emergency Medicine; PCP Internal Medicine
DX: M71.21 Synovial cyst of popliteal space [Baker], right knee (principal); I10 Essential (primary) hypertension; M79.604 Pain in right leg; Z79.899 Other long term (current) drug therapy
CPT/HCPCS: 93971; 99284

== ENCOUNTER 2023-04-30 14:16 | Outpatient (AMB) | payer OTHER, SELFPAY ==
[2023-04-30 14:19] VITALS: PULSE 92; O2SAT 96; BMI 66.1
--- NOTE | 2023-04-30 14:19 | MHC.OFFVIS ---
Intake Vital Signs 04/30/23 14:19 Height 5 ft 1 in Weight 350 lb BMI 66.1 Pulse 92 Pulse Source Pulse Oximeter Pulse Oximetry (%) 96 Oxygen Delivery Method Room Air Intake Visit Reasons: Wheezing and Cough Obstetric Assistant Required: No Allergies No Known Allergies Allergy (Verified 04/30/23 14:21) HPI HPI Comments History of Present Illness Details The patient is a 46-year-old woman with known history of asthma, obesity, obstructive sleep apnea who apparently has been developing worsening respiratory symptoms. She was evaluated previously by Pulmonary at [place]. Apparently her bottle blower left. She has been without a doctor now for close to a year. She continues to use the Trelegy inhaler daily. However, she still using her rescue inhaler 3 to 4 times a day because of worsening shortness of breath. She could not tolerate the symptoms and longer and went to the [facility] ED for further evaluation. There she had an x-ray which was personally by me demonstrating increased cardiac silhouette and perihilar congestion. The patient also underwent blood work with evidence of significant eosinophilia. The patient was given 3 days of Lasix in addition to prednisone and to continue her respiratory therapy. However, she has not improved. She continues to struggle with her breathing. She seems very edematous on examination. She also has significant coughing even with minimal exhalation suggesting of a bronchospastic cough. the patient denies having any recent allergy testing. She also denies any recent cardiac evaluation. She has had previous chest x-rays in the past demonstrating the increased cardiac size. To note the patient has not been using her CPAP. She does state right now with her breathlessness she has a hard time tolerating it. She is open to go back to using her CPAP when she feels better. Explained to her that the CPAP would be very crucial at this time especially since it will help her heart the with the volume overload status. The patient understands and she is going to start using it. She will bring her machine in to the next visit. 02/24/2022 the patient is here for a pulmonary follow-up visit. Over soon better. She is responding well to the Trelegy. We did look at her allergy testing was relatively negative. Her eosinophils are also better. She is having shortness of breath but is likely due to the humidity in the air. Otherwise the Trelegy seems to be working well and she is not using her rescue inhaler more than twice a week. In regards of her CPAP she is using more regularly. The CPAP therapy has been affecting beneficial. She is using for about 4 hours a night. I did encourage her to increase the amount of hours she is using it. She states that usually in the morning she has a hard time with. I did download the data. Her AHI is down to 0.6. I did decrease her maximum pressure from 12-11 cm. After minimum pressure of 4 cm. I am hopeful that she can tolerate lower pressure. She is also volume overloaded. She did take the Lasix although did not work as well. Her kidney functions okay. Will go ahead and give her 2 weeks worth of Lasix again so to allow her to decrease her volume. In the meantime she needs to cut down the salt intake. I gave her some ideas of what to do. Otherwise the patient is doing well will follow-up after her echocardiogram and 4-6 months. 05/08/2022 the patient is here for sick visit. She started developing worsening shortness of breath and chest tightness and wheezing. She has been coughing more. She has been using her rescue inhaler about every 2 hours with partial resolution of the symptoms. Therefore she called in to be evaluated. We did have her undergo blood work including CBC with differential and years her elsewhere better. In addition to that on her allergy testing no significant allergies workup in her IgE levels within normal limits. Therefore biologic therapy at this time went up to wait. Patient does increased wheezing today on examination. Will go ahead start her on prednisone for an asthma exacerbation. Also treated for lower respiratory infection. We then with frequent prednisone use and evidence of chronic bronchitis she will be a good candidate for Daliresp. Will go ahead and start her on low dose of 250 mcg hope of increasing it to the max dose for therapeutic effect. To continues on Trelegy inhaler. If the patient is not better will repeat her blood work to see her eosinophils have increased when she is up the prednisone. The patient did have an elevated eosinophil count the past. 07/10/2022 the patient is here for pulmonary follow-up visit. She was doing well until couple days ago when she started developing worsening cough again. Nonproductive in nature. She is coughing while in the office. She does respond well to the Trelegy. She also tolerated Daliresp. I am hopeful that improved her respiratory symptoms. If not we can always recheck her eosinophil levels to see if they are elevated. The last time she did not qualify for any biologic therapy. In the meantime she does continue to use her CPAP. CPAP therapy continues to be affecting beneficial. She does use it for more than 4 hours a night. We did review her last chest x-ray from January 2022 demonstrating increased interstitial changes. Typically of pulmonary edema. Patient also has lower extremity edema. She responded well to the diuretics. She may need additional diuresis at this time. The patient needs to monitor closely her sodium intake. The patient did undergo an echocardiogram sometime in the summer although is very suboptimal therefore difficult to assess. 04/30/2023 the patient is here for a pulmonary follow-up visit. The patient overall is feeling okay. She still has the nonproductive cough. Wbtj-ew-mxtmhtse severity. She does respond well to the Tessalon Perles and also to the cough medication. She does respond well to the Trelegy inhaler. Her asthma has been much better controlled. She had a flare of her asthma several weeks ago. She used her nebulizer often and did not require prednisone. Does not look like she is going to need surgery. The patient continues uses CPAP. The CPAP therapy continues to be affecting beneficial. Does try to use it more than 4 hours a night. Not able to download data at this time. Will plan to follow-up in 6 months time or sooner if she develops any new issues. [facility] Medical History Anxiety Asthma Bipolar disorder Depression Hypertension Social History Alcohol intake: never Patient Tobacco Use Status: Never used Tobacco Review of Systems Const Denies daytime sleepiness, Reports difficulty sleeping and Denies fever(s) Eyes Denies change in vision ENT Reports nasal congestion and Reports nasal discharge Card Denies chest pain, Denies dyspnea and Reports dyspnea on exertion Resp Reports cough, Denies hemoptysis, Denies dyspnea, Reports dyspnea on exertion, Denies stridor and Denies wheezing GI Reports no additional complaints Musc Reports as per HPI, Reports abnormal gait, Reports myalgias and Reports limited range of motion Skin/Breast Denies rash Neuro Reports no additional complaints and Reports abnormal gait Aller/Immun Denies wheezing Physical Exam Vital Signs: Last Vital Signs Pulse 92 04/30/23 14:19 Pulse Ox 96 04/30/23 14:19 Oxygen Delivery Method Room Air 04/30/23 14:19 BMI result Body Mass Index 66.1 Const General: alert Nutritional Appearance: obese morbidly obese Eyes General: appearance normal, both eyes and all related structures Neck Neck: Yes normal visual inspection, Yes no lymphadenopathy and Yes supple Chest Chest palpation & inspection: normal inspection of the chest Resp Effort & Inspection: Actively coughing Auscultation: no crackles, no wheezes and diminished lung sounds Cardio Rate: tachycardic Rhythm: regular rhythm Heart sounds: S1 normal heart sound present and S2 normal heart sound present GI Inspection: Yes normal to inspection Extrem General: No clubbing and No cyanosis Right lower extremity: lower leg Details: other (boot) Immunizations pneumoc 20-charisse conj-dip cr(PF) 0.5 mL IM syringe Performing Provider: Juice Major MD Performing Location: [facility] Administered by: Evy Min LPN on 04/30/23 14:38 Dose Route Admin Location Dispensed Lot Number Expiration Date NDC [employer] 0.5 mL IM Left Deltoid 0.5 mL [id number] 06/08/24 8102-9343-59 [employer] VIS Given Date VIS Provided VIS Publication Date 04/30/23 Single Vaccine 22 Eligibility Eligibility Date Funding Source Not [facility] Eligible 04/30/23 Private Assessment & Plan Assessment & Plan (1) Asthma: Comment: With evidence of eosinophilia Code(s): J45.909 - Unspecified asthma, uncomplicated Qualifiers: Asthma complication type: with acute exacerbation Asthma persistence: persistent Asthma severity: severe Qualified Code(s): J45.51 - Severe persistent asthma with (acute) exacerbation (2) Cardiomegaly: Code(s): I51.7 - Cardiomegaly (3) SHAJI (obstructive sleep apnea): Code(s): G47.33 - Obstructive sleep apnea (adult) (pediatric) Plan continue Daliresp 500mcg continue Trelegy, decrease 200->100mcg JULES as needed benzonatate as needed for cough short-acting beta agonist as needed continue APAP, adjusted to 4-11 follow-up in 6-8 months Orders: Orders Pneumococcal 20 Immunization 04/30/23 Z23 - Encounter for immunization Medications: New lhjplrilgwe-bteimcqqt-zvuuyizx 100-62.5-25 mcg (Trelegy Ellipta) 1 inh inhalation DAILY 30 days 60 ea 11RF J44.9 - Chronic obstructive pulmonary disease, unspecified Discontinued oeydlitdkdb-ewsuhrizg-gusbnetn 200-62.5-25 mcg (Trelegy Ellipta) Discontinued Reason: Doctor's Order 1 ea inhalation DAILY 60 ea 4RF Coding Level of Care Code Est Pt Level 4 (70961) Diagnoses Severe persistent asthma with acute exacerbation J45.51 Asthma complication type: with acute exacerbation Asthma persistence: persistent Asthma severity: severe Cardiomegaly I51.7 SHAJI (obstructive sleep apnea) G47.33 Time Spent (min) 17
== END 2023-04-30 14:43 | disposition home or self-care (01) ==
PROVIDERS: PCP Nurse Practitioner Primary Care; Visit Provider Hospitalist
DX: J45.51 Severe persistent asthma with (acute) exacerbation (principal); I51.7 Cardiomegaly; G47.33 Obstructive sleep apnea (adult) (pediatric)
CPT/HCPCS: 99214

== ENCOUNTER → 2023-04-30 14:16 | Outpatient (BNVA) | payer OTHER, SELFPAY | PROVIDERS: PCP Nurse Practitioner Primary Care; Visit Provider Hospitalist | DX: J45.51 Severe persistent asthma with (acute) exacerbation (principal); G47.33 Obstructive sleep apnea (adult) (pediatric); I51.7 Cardiomegaly; Z79.899 Other long term (current) drug therapy; Z23 Encounter for immunization | CPT/HCPCS: 90471; 90677; 99212 ==

== ENCOUNTER 2023-05-04 12:46 | Outpatient (AMB) | payer OTHER, SELFPAY ==
--- NOTE | 2023-05-04 13:07 | MHC.OFFVIS ---
Intake Intake Visit Reasons: incontinence Intake Note: New Patient presents for initial visit incontinence Urology Medications: none Blood Thinner: none PVR: 62ml's Hair Rooting Machine Operator Required: Yes Hair Rooting Machine Operator Name: Korina Accompanied by: Unknown Allergies No Known Allergies Allergy (Verified 05/04/23 22:21) Medication List - Last Reconciled 05/04/23 by SILVINA JosephP- albuterol sulfate 2.5 mg (3 mL) inhalation Q4-6H PRN albuterol sulfate 90 mcg/actuation (Ventolin HFA) 2 puffs inhalation Q6H PRN benzonatate 200 mg PO BID PRN 30 days bupropion HCl 150 mg PO BID CPAP (CPAP Machine/Device) As directed dextromethorphan-guaifenesin 5-100 mg/5 mL (Cough-Chest Congestion DM) 10 mL PO Q6H PRN 14 days duloxetine 60 mg PO DAILY duloxetine 40 mg PO DAILY dqyylyrooay-xcouweext-leznmnok 100-62.5-25 mcg (Trelegy Ellipta) 1 inh inhalation DAILY 30 days furosemide (Lasix) 20 mg PO DAILY 14 days gabapentin 0 mg PO hydroxyzine HCl 25 mg PO BID PRN loratadine 10 mg PO DAILY meloxicam 15 mg PO DAILY metformin 500 mg PO DAILY montelukast 10 mg PO DAILY 90 days nebulizers As directed oxybutynin chloride ER 10 mg PO DAILY 30 days roflumilast 500 mcg PO DAILY topiramate (Topamax) 200 mg PO DAILY HPI HPI Comments History of Present Illness Details Mariaelena is a very pleasant 47-year-old Luxembourger-speaking female patient of Dr. Calles was accompanied by her friend at today's visit. She has a past medical history of anxiety, depression, bipolar disorder, hypertension, asthma, and obesity. She presents to the office today as a new patient for urinary urgency, urinary frequency and urge incontinence. She also reports intermittent episodes of nocturia up to 5 times per night however these episodes are infrequent. In discussion with the patient today she reports lower urinary tract symptoms to have been present for 1-2 years. When asked she reports having had for children, 3 vaginal births and 1 via . She reports labors to have been quick and all for children to have been average sized babies. In office urinalysis results reviewed with the patient today. PVR 62 mL. Discussed at length potential causes for lower urinary tract symptoms patient is experiencing. Discussed further workup with retroperitoneal ultrasound for further assessment evaluation. Discussed at length pelvic floor therapy as well as medications. Currently patient does not wish to undergo pelvic floor therapy. She otherwise denies , hematuria, dysuria, foul smelling urine, changes to urinary stream, flank pain, fever, and or chills. PFSH Medical History Anxiety Depression Bipolar disorder Hypertension Asthma Social History Alcohol intake: never Patient Tobacco Use Status: Never used Tobacco Review of Systems Const Reports no additional complaints Eyes Reports no additional complaints ENT Reports no additional complaints Card Reports as per HPI Resp Reports as per HPI GI Reports no additional complaints Reports as per HPI Neuro Reports as per HPI Psych Reports as per HPI Endo Reports no additional complaints Physical Exam Const General: cooperative, healthy appearing, comfortable, no acute distress, well developed, alert and awake Nutritional Appearance: overweight Orientation/consciousness: patient oriented x3 Limitations: no limitations HEENT Head: Yes normal to inspection, Yes normocephalic and Yes atraumatic Ears: hearing grossly normal bilaterally Eyes General: appearance normal, both eyes and all related structures Neck Neck: Yes normal visual inspection and Yes trachea midline Chest Chest palpation & inspection: normal inspection of the chest Resp Effort & Inspection: normal respiratory effort and able to speak in complete sentences Cardio Rate: regular rate GI Inspection: Yes normal to inspection General: Yes no CVA tenderness Back/Spine/Pelvis Back: no CVA tenderness Skin General skin exam: no rashes or lesions noted Neuro General: patient oriented x3 Extrem General: Yes normal to inspection Psych Appearance: grossly normal and well kempt Mental Status: mental status grossly normal Speech and movement: Normal speech and movement present and Clear speech present Affect: normal affect Attitude: cooperative Thought process: Normal thought process present Thought content: Normal thought content present Insight: Fair insight present (Psych) Judgement: Fair judgement present (Psych) Office Procedures Post Void Residual Post Residual Void Post Void Residual (PVR): 62 [id number] Void Residual by ultrasound Results AMB Urinalysis, Automated UA Leukoctes 0 Rafi/uL Last Edit by Carlene Pratt on 05/04/23 13:26 UA Nitrite Negative Last Edit by Carlene Pratt on 05/04/23 13:26 UA Urobilinogen 0.2 mg/dL Last Edit by Carlene Pratt on 05/04/23 13:26 UA Protein 0 mg/dL Last Edit by Carlene Pratt on 05/04/23 13:26 UA pH 7.5 Last Edit by Carlene Pratt on 05/04/23 13:26 UA Blood 0 Tremaine/uL Last Edit by Carlene Pratt on 05/04/23 13:26 UA Specific Riley 1.015 Last Edit by Carlene Pratt on 05/04/23 13:26 UA Ketone Negative Last Edit by Carlene Pratt on 05/04/23 13:26 UA Bilirubin 0 mg/dL Last Edit by Carlene Pratt on 05/04/23 13:26 UA Glucose 0 mg/dL Last Edit by Carlene Pratt on 05/04/23 13:26 Results Reviewed Results Reviewed: Laboratory Last Values Urine pH (Auto) 7.5 05/04/23 13:14 Specific Riley (Auto) 1.015 05/04/23 13:14 Urine Protein (Auto) 0 mg/dL 05/04/23 13:14 Glucose (UA)(Auto) 0 mg/dL 05/04/23 13:14 Urine Ketones (Auto) Negative 05/04/23 13:14 Urine Blood (Auto) 0 Tremaine/uL 05/04/23 13:14 Urine Nitrite (Auto) Negative 05/04/23 13:14 Urine Bilirubin (Auto) 0 mg/dL 05/04/23 13:14 Urine Urobilinogen (Auto) 0.2 mg/dL 05/04/23 13:14 Leukocyte Esterase (Auto) 0 Rafi/uL 05/04/23 13:14 Assessment & Plan Assessment & Plan (1) Urinary urgency: Code(s): R39.15 - Urgency of urination (2) Urinary frequency: Code(s): R35.0 - Frequency of micturition (3) Urinary incontinence, urge: Code(s): N39.41 - Urge incontinence Plan In office urinalysis results reviewed with the patient today; as noted above. PVR 62 mL. Discussed at length bladder triggers/irritants. Discussed obtaining retroperitoneal ultrasound for further assessment evaluation. Start oxybutynin 10 mg as discussed and prescribed. Discussed at length importance of losing weight for improvement in lower urinary tract symptoms as well as overall health and well-being. Discussed pelvic floor therapy however patient declines at this time. Discussed near future in office cystoscopy if symptoms persist and/or worsen and or urodynamics for further assessment and evaluation. Follow-up in 6-8 weeks with imaging to be completed prior; or sooner with any issues, concerns, and or questions. Orders: Orders AMB Urinalysis Automated Today Z13.9 - Encounter for screening, unspecified AMB Post Void Residual by ultrasound Today Z13.9 - Encounter for screening, unspecified US retroperitoneal comp Today N39.41 - Urge incontinence, R35.0 - Frequency of micturition, R39.15 - Urgency of urination Medications: New oxybutynin chloride ER 10 mg PO DAILY 30 days 30 tabs 1RF N32.81 - Overactive bladder Patient Instructions: The patient had an opportunity to ask questions regarding the treatment plan. All questions were answered. Physical exam, labs, and imaging were discussed and reviewed in detail. As well as risks, benefits, and discussion of treatment choices. No major barriers to understanding were identified. The patient expressed understanding and agreement with the above treatment plan. The patient was made aware they should contact our office by phone for worsening of their current condition, the appearance of new symptoms, or with any questions or concerns. Compliance is encouraged with any medications and follow up testing that is ordered. It is a privilege to be allowed the opportunity to participate in? your urological care.? Again, if you have any questions or concerns If you have any questions or concerns please do not hesitate to contact me. The office is [phone]. This note is constructed using voice recognition software. While every effort has been made to ensure accuracy siebel solution architect errors may have been included. Yours sincerely, CHARISSE Joseph Coding Level of Care Code New Pt Level 4 (05096) Diagnoses Urinary urgency R39.15 Urinary frequency R35.0 Urinary incontinence, urge N39.41 CPT Codes Post Residual Void - PVR CPT Code: 92307-Scuv Void Residual by ultrasound ([id number])
== END 2023-05-04 13:46 | disposition home or self-care (01) ==
PROVIDERS: PCP Nurse Practitioner Primary Care; Visit Provider Nurse Practitioner Family
DX: R39.15 Urgency of urination (principal); R35.0 Frequency of micturition
CPT/HCPCS: 99204

== ENCOUNTER → 2023-05-04 12:46 | Outpatient (BNVA) | payer OTHER, SELFPAY | PROVIDERS: PCP Nurse Practitioner Primary Care; Visit Provider Nurse Practitioner Family | DX: R39.15 Urgency of urination (principal); R35.0 Frequency of micturition; N39.41 Urge incontinence | CPT/HCPCS: 51798; 81003 ==

== ENCOUNTER 2023-05-31 10:40 | Outpatient (REF) | payer OTHER, SELFPAY ==
--- NOTE | ~2023-05-31 | US_ITS ---
EXAMINATION: US RETROPERITONEAL COMPLETE (RENAL) CLINICAL INFORMATION: Urge incontinence. COMPARISON: None available. TECHNIQUE: Real-time imaging of the kidneys and bladder. Technically limited study secondary to body habitus. FINDINGS: RIGHT KIDNEY: 12.9 x 4.7 x 6.9 cm (SAG x AP x TRV). No hydronephrosis. No renal calculi. Renal cortical thickness is normal. Limited visualization. LEFT KIDNEY: 14.1 x 5.7 x 6.5 cm (SAG x AP x TRV). No hydronephrosis. No renal calculi. Renal cortical thickness is normal. Limited visualization. BLADDER: Partially distended. Bilateral ureteral jets are demonstrated. Prevoid bladder volume is 163 mL. Postvoid bladder volume is 32 mL. US/US retroperitoneal comp IMPRESSION: No hydronephrosis. No renal calculi.
== END 2023-05-31 10:41 | disposition home or self-care (01) ==
LOC: HO.HMGCX 10:40
PROVIDERS: PCP Internal Medicine; Visit Provider Nurse Practitioner Family
DX: N39.41 Urge incontinence (principal); R35.0 Frequency of micturition
CPT/HCPCS: 76770

== ENCOUNTER 2023-06-15 12:47 | Outpatient (AMB) | payer OTHER, SELFPAY ==
--- NOTE | 2023-06-15 13:02 | MHC.OFFVIS ---
Intake Intake Visit Reasons: 6w/US/PVR(set) Intake Note: Patient presents for follow up incontinence/PVR /ultrasound (imaging 05/31/23) Urology Medications: oxybutynin Blood Thinner: none PVR: 25ml's Spanish Moss Picker Required: Yes Spanish Moss Picker Name: Phong Li Accompanied by: Unknown Allergies No Known Allergies Allergy (Verified 06/15/23 13:49) Medication List - Last Reconciled 06/15/23 by SILVINA JosephP- albuterol sulfate 2.5 mg (3 mL) inhalation Q4-6H PRN albuterol sulfate 90 mcg/actuation (Ventolin HFA) 2 puffs inhalation Q6H PRN amlodipine 2.5 mg PO DAILY bupropion HCl 300 mg PO DAILY cholecalciferol (vitamin D3) 50 mcg PO DAILY CPAP (CPAP Machine/Device) As directed enalapril maleate 20 mg PO BID famotidine (Heartburn Relief (famotidine)) mg PO ferrous sulfate 324 mg PO BID ewiplkipovp-claxxntus-cpfapawl 100-62.5-25 mcg (Trelegy Ellipta) 1 inh inhalation DAILY 30 days furosemide (Lasix) 20 mg PO DAILY 14 days hydroxyzine HCl 25 mg PO BID PRN loratadine 10 mg PO DAILY meloxicam 15 mg PO DAILY metformin ER 500 mg PO DAILY montelukast 10 mg PO DAILY 90 days nebulizers As directed oxybutynin chloride ER 20 mg (2 x 10 mg) PO DAILY 90 days ramelteon (Rozerem) 8 mg PO BEDTIME roflumilast 500 mcg PO DAILY topiramate 50 mg PO DAILY HPI HPI Comments History of Present Illness Details Mariaelena is a very pleasant 47-year-old Russian-speaking female patient of Dr. Calles was accompanied by her friend at today's visit. She has a past medical history of anxiety, depression, bipolar disorder, hypertension, asthma, and obesity. She presents to the office today for follow-up. Of note, patient was seen approximately 6 weeks ago as a new patient for urinary urgency, urinary frequency and urge incontinence at which time a retroperitoneal ultrasound was ordered for further assessment evaluation in the patient was started on 10 mg of oxybutynin daily. Recent retroperitoneal ultrasound results reviewed with the patient today. Bilateral kidneys with no hydronephrosis, and or calculi seen. The bladder is partially distended. Bilateral ureteral jets are demonstrated. Pre void bladder volume is approximately 165 mL. Postvoid bladder volume is approximately 30 mL. In discussion with the patient today she reports noting somewhat improvement in lower urinary tract symptoms on 10 mg of oxybutynin daily. Discussed increase in oxybutynin dosage verses trial of a different overactive bladder medication. In office urinalysis with microscopic hematuria however patient on her menses. PVR 25 mL. When asked she reports having had for children, 3 vaginal births and 1 via . She reports labors to have been quick and all for children to have been average sized babies. Discussed at length potential causes for lower urinary tract symptoms patient is experiencing. Discussed at length pelvic floor therapy as well as medications. Currently patient does not wish to undergo pelvic floor therapy. She otherwise denies , hematuria, dysuria, foul smelling urine, changes to urinary stream, flank pain, fever, and or chills. [facility] Medical History Anxiety Depression Bipolar disorder Hypertension Asthma Social History Alcohol intake: never Patient Tobacco Use Status: Never used Tobacco Review of Systems Const Reports no additional complaints Eyes Reports no additional complaints ENT Reports no additional complaints Card Reports as per HPI Resp Reports as per HPI GI Reports no additional complaints Reports as per HPI Neuro Reports as per HPI Psych Reports as per HPI Endo Reports no additional complaints Physical Exam Const General: cooperative, healthy appearing, comfortable, no acute distress, well developed, alert and awake Nutritional Appearance: overweight Orientation/consciousness: patient oriented x3 Limitations: no limitations HEENT Head: Yes normal to inspection, Yes normocephalic and Yes atraumatic Ears: hearing grossly normal bilaterally Eyes General: appearance normal, both eyes and all related structures Neck Neck: Yes normal visual inspection and Yes trachea midline Chest Chest palpation & inspection: normal inspection of the chest Resp Effort & Inspection: normal respiratory effort and able to speak in complete sentences Cardio Rate: regular rate GI Inspection: Yes normal to inspection General: Yes no CVA tenderness Back/Spine/Pelvis Back: no CVA tenderness Skin General skin exam: no rashes or lesions noted Neuro General: patient oriented x3 Extrem General: Yes normal to inspection Psych Appearance: grossly normal and well kempt Mental Status: mental status grossly normal Speech and movement: Normal speech and movement present and Clear speech present Affect: normal affect Attitude: cooperative Thought process: Normal thought process present Thought content: Normal thought content present Insight: Fair insight present (Psych) Judgement: Fair judgement present (Psych) Office Procedures Post Void Residual Post Residual Void Post Void Residual (PVR): 25 [id number] Void Residual by ultrasound Results AMB Urinalysis, Automated UA Leukoctes 15 Rafi/uL Last Edit by In[employer]an on 06/15/23 13:52 UA Nitrite Negative Last Edit by [employer] on 06/15/23 13:52 UA Urobilinogen 0.2 mg/dL Last Edit by [employer] on 06/15/23 13:52 UA Protein 15 mg/dL Last Edit by [employer] on 06/15/23 13:52 UA pH 6.0 Last Edit by [employer] on 06/15/23 13:52 UA Blood 200 Tremaine/uL Last Edit by [employer] on 06/15/23 13:52 UA Specific [place] 1.015 Last Edit by [employer] on 06/15/23 13:52 UA Ketone Negative Last Edit by [employer] on 06/15/23 13:52 UA Bilirubin 0 mg/dL Last Edit by [employer] on 06/15/23 13:52 UA Glucose 0 mg/dL Last Edit by [employer] on 06/15/23 13:52 Results Reviewed Results Reviewed: Laboratory Last Values Urine pH (Auto) 6.0 06/15/23 13:09 Specific [place] (Auto) 1.015 06/15/23 13:09 Urine Protein (Auto) 15 mg/dL 06/15/23 13:09 Glucose (UA)(Auto) 0 mg/dL 06/15/23 13:09 Urine Ketones (Auto) Negative 06/15/23 13:09 Urine Blood (Auto) 200 Tremaine/uL 06/15/23 13:09 Urine Nitrite (Auto) Negative 06/15/23 13:09 Urine Bilirubin (Auto) 0 mg/dL 06/15/23 13:09 Urine Urobilinogen (Auto) 0.2 mg/dL 06/15/23 13:09 Leukocyte Esterase (Auto) 15 Rafi/uL 06/15/23 13:09 Date of Service: 05/31/23 Procedure(s): US retroperitoneal comp EXAMINATION: US RETROPERITONEAL COMPLETE (RENAL) CLINICAL INFORMATION: Urge incontinence. COMPARISON: None available. TECHNIQUE: Real-time imaging of the kidneys and bladder. Technically limited study secondary to body habitus. FINDINGS: RIGHT KIDNEY: 12.9 x 4.7 x 6.9 cm (SAG x AP x TRV). No hydronephrosis. No renal calculi. Renal cortical thickness is normal. Limited visualization. LEFT KIDNEY: 14.1 x 5.7 x 6.5 cm (SAG x AP x TRV). No hydronephrosis. No renal calculi. Renal cortical thickness is normal. Limited visualization. BLADDER: Partially distended. Bilateral ureteral jets are demonstrated. Prevoid bladder volume is 163 mL. Postvoid bladder volume is 32 mL. IMPRESSION: No hydronephrosis. No renal calculi. Assessment & Plan Assessment & Plan (1) Urinary urgency: Code(s): R39.15 - Urgency of urination (2) Urinary frequency: Code(s): R35.0 - Frequency of micturition (3) Urinary incontinence, urge: Code(s): N39.41 - Urge incontinence Plan In office urinalysis results reviewed with the patient today; as noted above. PVR 25 mL. Discussed at length bladder triggers/irritants. Recent retroperitoneal ultrasound results reviewed with the patient today; as noted above. Start oxybutynin 20 mg as discussed and prescribed. Discussed at length importance of losing weight for improvement in lower urinary tract symptoms as well as overall health and well-being. Discussed pelvic floor therapy however patient declines at this time. Discussed near future in office cystoscopy if symptoms persist and/or worsen and or urodynamics for further assessment and evaluation. Follow-up in 3 months with PVR; or sooner with any issues, concerns, and or questions. Orders: Orders AMB Urinalysis Automated Today Z13.9 - Encounter for screening, unspecified AMB Post Void Residual by ultrasound Today R39.15 - Urgency of urination Medications: Changed From oxybutynin chloride ER 10 mg PO DAILY 30 days 30 tabs 1RF N32.81 - Overactive bladder To oxybutynin chloride ER 20 mg (2 x 10 mg) PO DAILY 90 days 180 tabs 1RF N32.81 - Overactive bladder Patient Instructions: The patient had an opportunity to ask questions regarding the treatment plan. All questions were answered. Physical exam, labs, and imaging were discussed and reviewed in detail. As well as risks, benefits, and discussion of treatment choices. No major barriers to understanding were identified. The patient expressed understanding and agreement with the above treatment plan. The patient was made aware they should contact our office by phone for worsening of their current condition, the appearance of new symptoms, or with any questions or concerns. Compliance is encouraged with any medications and follow up testing that is ordered. It is a privilege to be allowed the opportunity to participate in? your urological care.? Again, if you have any questions or concerns If you have any questions or concerns please do not hesitate to contact me. The office is [phone]. This note is constructed using voice recognition software. While every effort has been made to ensure accuracy senior gl accountant errors may have been included. Yours sincerely, CHARISSE Joseph Coding Level of Care Code Est Pt Level 3 (01414) Diagnoses Urinary urgency R39.15 Urinary frequency R35.0 Urinary incontinence, urge N39.41 CPT Codes Post Residual Void - PVR CPT Code: 38626-[id number] Void Residual by ultrasound ([id number])
== END 2023-06-15 13:56 | disposition home or self-care (01) ==
PROVIDERS: PCP Nurse Practitioner Primary Care; Visit Provider Nurse Practitioner Family
DX: R35.0 Frequency of micturition (principal); N39.41 Urge incontinence
CPT/HCPCS: 99213

== ENCOUNTER → 2023-06-15 12:47 | Outpatient (BNVA) | payer OTHER, SELFPAY | PROVIDERS: PCP Nurse Practitioner Primary Care; Visit Provider Nurse Practitioner Family | DX: R39.15 Urgency of urination (principal); R35.0 Frequency of micturition; N39.41 Urge incontinence | CPT/HCPCS: 51798; 81003; 99212 ==

== ENCOUNTER 2023-09-14 11:45 | Outpatient (AMB) | payer OTHER, SELFPAY ==
--- NOTE | 2023-09-14 12:30 | MHC.OFFVIS ---
Intake Intake Visit Reasons: 3m/PVR Intake Note: Patient presents today for a follow-up Meds- Oxybutynin Allergies to Antibiotic- No Known Allergies Blood Thinner- None Post Void Residual: 0ml Morning Show Host Required: Yes Morning Show Host Name: [id number] Accompanied by: Self / Same As Patient Allergies No Known Allergies Allergy (Verified 09/14/23 21:24) Medication List - Last Reconciled 09/14/23 by MARLEEN Joseph- albuterol sulfate 2.5 mg (3 mL) inhalation Q4-6H PRN albuterol sulfate 90 mcg/actuation (Ventolin HFA) 2 puffs inhalation Q6H PRN amlodipine 2.5 mg PO DAILY bupropion HCl 300 mg PO DAILY cholecalciferol (vitamin D3) 50 mcg PO DAILY CPAP (CPAP Machine/Device) As directed enalapril maleate 20 mg PO BID famotidine (Heartburn Relief (famotidine)) mg PO ferrous sulfate 324 mg PO BID ihuaggojqml-[id number]-cpdtssyy 200-62.5-25 mcg (Trelegy Ellipta) 1 ea inhalation DAILY furosemide (Lasix) 20 mg PO DAILY 14 days hydroxyzine HCl 25 mg PO BID PRN loratadine 10 mg PO DAILY meloxicam 15 mg PO DAILY metformin ER 500 mg PO DAILY montelukast 10 mg PO DAILY 90 days nebulizers As directed nirmatrelvir-ritonavir 300 mg (150 mg x 2)-100 mg (Paxlovid) take TWO 150 mg tablets of nirmatrelvir with ONE 100 mg tablet of ritonavir twice daily for 5 days PO 5 days oxybutynin chloride ER 20 mg (2 x 10 mg) PO DAILY 90 days ramelteon (Rozerem) 8 mg PO BEDTIME roflumilast 500 mcg PO DAILY topiramate 50 mg PO DAILY HPI HPI Comments History of Present Illness Details Mariaelena is a very pleasant 47-year-old Albanian-speaking female patient of Dr. Calles. She has a past medical history of anxiety, depression, bipolar disorder, hypertension, asthma, and obesity. She presents to the office today for follow-up. Of note, patient was seen approximately 6 weeks ago at which time her oxybutynin was increased to 20 mg daily. In discussion with the patient today she reports noting significant improvement in urinary frequency and urge incontinence. She reports to be happy with current voiding parameters. Previous workup has included a retroperitoneal ultrasound noting bilateral kidneys with no hydronephrosis, and or calculi seen. The bladder is partially distended. Bilateral ureteral jets are demonstrated. Pre void bladder volume is approximately 165 mL. Postvoid bladder volume is approximately 30 mL. In office urinalysis results reviewed with the patient today. PVR 0 mL. She has a history of having four childbirths. Discussed at length potential causes for lower urinary tract symptoms patient is experiencing. Discussed at length pelvic floor therapy as well as medications. Currently patient does not wish to undergo pelvic floor therapy. She otherwise denies hematuria, dysuria, foul smelling urine, changes to urinary stream, flank pain, fever, and or chills. [facility] Medical History Anxiety Depression Bipolar disorder Hypertension Asthma Social History Alcohol intake: never Patient Tobacco Use Status: Never used Tobacco Review of Systems Const Reports no additional complaints Eyes Reports no additional complaints ENT Reports no additional complaints Card Reports as per HPI Resp Reports as per HPI GI Reports no additional complaints Reports as per HPI Neuro Reports as per HPI Psych Reports as per HPI Endo Reports no additional complaints Physical Exam Const General: cooperative, healthy appearing, comfortable, no acute distress, well developed, alert and awake Nutritional Appearance: overweight Orientation/consciousness: patient oriented x3 Limitations: no limitations HEENT Head: Yes normal to inspection, Yes normocephalic and Yes atraumatic Ears: hearing grossly normal bilaterally Eyes General: appearance normal, both eyes and all related structures Neck Neck: Yes normal visual inspection and Yes trachea midline Chest Chest palpation & inspection: normal inspection of the chest Resp Effort & Inspection: normal respiratory effort and able to speak in complete sentences Cardio Rate: regular rate GI Inspection: Yes normal to inspection General: Yes no CVA tenderness Back/Spine/Pelvis Back: no CVA tenderness Skin General skin exam: no rashes or lesions noted Neuro General: patient oriented x3 Extrem General: Yes normal to inspection Psych Appearance: grossly normal and well kempt Mental Status: mental status grossly normal Speech and movement: Normal speech and movement present and Clear speech present Affect: normal affect Attitude: cooperative Thought process: Normal thought process present Thought content: Normal thought content present Insight: Fair insight present (Psych) Judgement: Fair judgement present (Psych) Office Procedures Post Void Residual Post Residual Void Post Void Residual (PVR): 0 [id number] Void Residual by ultrasound Results AMB Urinalysis, Automated UA Leukoctes 0 Rafi/uL Last Edit by Sarah Adamson [facility] on 09/14/23 12:35 UA Nitrite Negative Last Edit by Sarah Adamsonaylin Adamson [facility] on 09/14/23 12:35 UA Urobilinogen 0.2 mg/dL Last Edit by Sarah Adamsonaylin Adamson [facility] on 09/14/23 12:35 UA Protein 15 mg/dL [facility] on 09/14/23 12:35 UA pH 6.0 Last Edit by Sarah Adamsonaylin Adamson [facility] on 09/14/23 12:35 UA Blood 10 Tremaine/uL Last Edit by Sarah Adamsonaylin Adamson [facility] on 09/14/23 12:35 UA Specific [place] 1.025 Last Edit by Sarah Adamsonaylin Adamson [facility] on 09/14/23 12:35 UA Ketone Negative Last Edit [facility] on 09/14/23 12:35 UA Bilirubin 0 mg/dL Last Edit by [facility] on 09/14/23 12:35 UA Glucose 0 mg/dL Last Edit by [facility] on 09/14/23 12:35 Results Reviewed Results Reviewed: Laboratory Last Values Urine pH (Auto) 6.0 09/14/23 12:33 Specific [place] (Auto) 1.025 09/14/23 12:33 Urine Protein (Auto) 15 mg/dL 09/14/23 12:33 Glucose (UA)(Auto) 0 mg/dL 09/14/23 12:33 Urine Ketones (Auto) Negative 09/14/23 12:33 Urine Blood (Auto) 10 [place]/uL 09/14/23 12:33 Urine Nitrite (Auto) Negative 09/14/23 12:33 Urine Bilirubin (Auto) 0 mg/dL 09/14/23 12:33 Urine Urobilinogen (Auto) 0.2 mg/dL 09/14/23 12:33 Leukocyte Esterase (Auto) 0 Rafi/uL 09/14/23 12:33 Assessment & Plan Assessment & Plan (1) Urinary urgency: Code(s): R39.15 - Urgency of urination (2) Urinary frequency: Code(s): R35.0 - Frequency of micturition (3) Urinary incontinence, urge: Code(s): N39.41 - Urge incontinence Plan In office urinalysis results reviewed with the patient today; as noted above. PVR 0 mL. Discussed at length bladder triggers/irritants. Continue oxybutynin 20 mg as discussed and prescribed. Discussed at length importance of losing weight for improvement in lower urinary tract symptoms as well as overall health and well-being. Discussed pelvic floor therapy however patient declines at this time. Discussed near future in office cystoscopy or urodynamics if symptoms arise and or worsen. Follow-up in 6 months with PVR; or sooner with any issues, concerns, and or questions. Orders: Orders AMB Urinalysis Automated Today R33.9 - Retention of urine, unspecified AMB Post Void Residual by ultrasound Today R33.9 - Retention of urine, unspecified Patient Instructions: The patient had an opportunity to ask questions regarding the treatment plan. All questions were answered. Physical exam, labs, and imaging were discussed and reviewed in detail. As well as risks, benefits, and discussion of treatment choices. No major barriers to understanding were identified. The patient expressed understanding and agreement with the above treatment plan. The patient was made aware they should contact our office by phone for worsening of their current condition, the appearance of new symptoms, or with any questions or concerns. Compliance is encouraged with any medications and follow up testing that is ordered. It is a privilege to be allowed the opportunity to participate in? your urological care.? Again, if you have any questions or concerns If you have any questions or concerns please do not hesitate to contact me. The office is [phone]. This note is constructed using voice recognition software. While every effort has been made to ensure accuracy volunteer fire fighter errors may have been included. Yours sincerely, CHARISSE Joseph Coding Level of Care Code Est Pt Level 3 (30280) Diagnoses Urinary urgency R39.15 Urinary frequency R35.0 Urinary incontinence, urge N39.41 CPT Codes Post Residual Void - PVR CPT Code: [id number]-[id number] Void Residual by ultrasound ([id number])
== END 2023-09-14 13:06 | disposition home or self-care (01) ==
PROVIDERS: PCP Nurse Practitioner Primary Care; Visit Provider Nurse Practitioner Family
DX: R35.0 Frequency of micturition (principal); N39.41 Urge incontinence
CPT/HCPCS: 99213

== ENCOUNTER → 2023-09-14 11:45 | Outpatient (BNVA) | payer OTHER, SELFPAY | PROVIDERS: PCP Nurse Practitioner Primary Care; Visit Provider Nurse Practitioner Family | DX: R39.15 Urgency of urination (principal); R35.0 Frequency of micturition; N39.41 Urge incontinence | CPT/HCPCS: 51798; 81003; 99212 ==

== ENCOUNTER 2024-01-05 09:28 | Outpatient (AMB) | payer OTHER, SELFPAY ==
[2024-01-05 09:40] VITALS: PULSE 85; O2SAT 98; BMI 64.2
--- NOTE | 2024-01-05 09:40 | A.OFFVIS_ITS ---
Vital Signs 01/05/24 09:40 Height 5 ft 1 in Weight 340 lb BMI 64.2 Pulse 85 Pulse Source Pulse Oximeter Pulse Oximetry (%) 98 Oxygen Delivery Method Room Air Intake Visit Reasons: wheezing Hardware Engineer Required: No Allergies No Known Allergies Allergy (Verified 01/05/24 09:42) HPI Comments Details: The patient is a 48-year-old woman with known history of asthma, obesity, obstru ctive sleep apnea who apparently has been developing worsening respiratory symptoms. She was evaluated previously by Pulmonary at [facility]. Apparently her manufacturing process engineer left. She has been without a doctor now for close to a year. She continues to use the Trelegy inhaler daily. However, she still using her rescue inhaler 3 to 4 times a day because of worsening shortness of breath. She could not tolerate the symptoms and longer and went to the [facility] ED for further evaluation. There she had an x-ray which was personally by me demonstrating increased cardiac silhouette and perihilar congestion. The patient also underwent blood work with evidence of significant eosinophilia. The patient was given 3 days of Lasix in addition to prednisone and to continue her respiratory therapy. However, she has not improved. She continues to struggle with her breathing. She seems very edematous on examination. She also has significant coughing even with minimal exhalation suggesting of a bronchospastic cough. the patient denies having any recent allergy testing. She also denies any recent cardiac evaluation. She has had previous chest x- rays in the past demonstrating the increased cardiac size. To note the patient has not been using her CPAP. She does state right now with her breathlessness she has a hard time tolerating it. She is open to go back to using her CPAP when she feels better. Explained to her that the CPAP would be very crucial at this time especially since it will help her heart the with the volume overload status. The patient understands and she is going to start using it. She will bring her machine in to the next visit. 02/24/2022 the patient is here for a pulmonary follow-up visit. Over soon better. She is responding well to the Trelegy. We did look at her allergy testing was relatively negative. Her eosinophils are also better. She is having shortness of breath but is likely due to the humidity in the air. Otherwise the Trelegy seems to be working well and she is not using her rescue inhaler more than twice a week. In regards of her CPAP she is using more regularly. The CPAP therapy has been affecting beneficial. She is using for about 4 hours a night. I did encourage her to increase the amount of hours she is using it. She states that usually in the morning she has a hard time with. I did download the data. Her AHI is down to 0.6. I did decrease her maximum pressure from 12-11 cm. After minimum pressure of 4 cm. I am hopeful that she can tolerate lower pressure. She is also volume overloaded. She did take the Lasix although did not work as well. Her kidney functions okay. Will go ahead and give her 2 weeks worth of Lasix again so to allow her to decrease her volume. In the meantime she needs to cut down the salt intake. I gave her some ideas of what to do. Otherwise the patient is doing well will follow-up after her echocardiogram and 4-6 months. 05/08/2022 the patient is here for sick visit. She started developing worsening shortness of breath and chest tightness and wheezing. She has been coughing more. She has been using her rescue inhaler about every 2 hours with partial resolution of the symptoms. Therefore she called in to be evaluated. We did have her undergo blood work including CBC with differential and years her elsewhere better. In addition to that on her allergy testing no significant allergies workup in her IgE levels within normal limits. Therefore biologic therapy at this time went up to wait. Patient does increased wheezing today on examination. Will go ahead start her on prednisone for an asthma exacerbation. Also treated for lower respiratory infection. We then with frequent prednisone use and evidence of chronic bronchitis she will be a good candidate for Daliresp. Will go ahead and start her on low dose of 250 mcg hope of increasing it to the max dose for therapeutic effect. To continues on Trelegy inhaler. If the patient is not better will repeat her blood work to see her eosinophils have increased when she is up the prednisone. The patient did have an elevated eosinophil count the past. 07/10/2022 the patient is here for pulmonary follow-up visit. She was doing well until couple days ago when she started developing worsening cough again. Nonproductive in nature. She is coughing while in the office. She does resp ond well to the Trelegy. She also tolerated Daliresp. I am hopeful that improved her respiratory symptoms. If not we can always recheck her eosinophil levels to see if they are elevated. The last time she did not qualify for any biologic therapy. In the meantime she does continue to use her CPAP. CPAP therapy continues to be affecting beneficial. She does use it for more than 4 hours a night. We did review her last chest x-ray from January 2022 demonstrating increased interstitial changes. Typically of pulmonary edema. Patient also has lower extremity edema. She responded well to the diuretics. She may need additional diuresis at this time. The patient needs to monitor closely her sodium intake. The patient did undergo an echocardiogram sometime in the summer although is very suboptimal therefore difficult to assess. 04/30/2023 the patient is here for a pulmonary follow-up visit. The patient overall is feeling okay. She still has the nonproductive cough. Tqop-jj-woyjwqwj severity. She does respond well to the Tessalon Perles and also to the cough medication. She does respond well to the Trelegy inhaler. Her asthma has been much better controlled. She had a flare of her asthma several weeks ago. She used her nebulizer often and did not require prednisone. Does not look like she is going to need surgery. The patient continues uses CPAP. The CPAP therapy continues to be affecting beneficial. Does try to use it more than 4 hours a night. Not able to download data at this time. Will plan to follow-up in 6 months time or sooner if she develops any new issues. 01/05/2024 the patient is here for a pulmonary follow-up visit. Overall she is doing very well. She is using CPAP every night. Sleep CPAP therapy continues to be affecting beneficial. Her [employer] companies reliable respiratory. She is wondering about a different mask because sometimes bothersome nasal bridge. I did provide her with a small F30 mask she will try and see if his worth switchin g over to this mask. If it is she can not us know and I can send a script to her [employer] company. I will also request access to her machine through her [employer] company. We can adjusted accordingly. She is looking having bariatric surgery. She is getting close to getting all the arrangements done. She is pretty excited. At this point will provide her with support in order to pursue for surgery. From a respiratory status the patient appears to be doing well on current respiratory regimen. Recently she did require prednisone antibiotics for recent flare-up but at this point she is doing better on the Trelegy 100. We had decreased the dose the last time. At this point will keep her on that dose. [facility] Medical History (Updated 11/29/23 @ 21:13 by Juice Major MD) Asthma-COPD overlap syndrome Anxiety Depression Bipolar disorder Hypertension Asthma Social History Alcohol intake: never Patient Tobacco Use Status: Never used Tobacco Review of Systems Const Denies daytime sleepiness, Reports difficulty sleeping and Denies fever(s) Eyes Denies change in vision ENT Reports nasal congestion and Reports nasal discharge Card Denies chest pain, Denies dyspnea and Reports dyspnea on exertion Resp Reports cough, Denies hemoptysis, Denies dyspnea, Reports dyspnea on exertion, Denies stridor and Denies wheezing GI Reports no additional complaints Musc Reports as per HPI, Reports abnormal gait, Reports myalgias and Reports limited range of motion Skin/Breast Denies rash Neuro Reports no additional complaints and Reports abnormal gait Aller/Immun Denies wheezing Physical Exam Vital Signs: Last Vital Signs Pulse 85 01/05/24 09:40 Pulse Ox 98 01/05/24 09:40 Oxygen Delivery Method Room Air 01/05/24 09:40 BMI result Body Mass Index 64.2 Const General: alert Nutritional Appearance: obese morbidly obese Eyes General: appearance normal, both eyes and all related structures Neck Neck: Yes normal visual inspection, Yes no lymphadenopathy and Yes supple Chest Chest palpation & inspection: normal inspection of the chest Resp Auscultation: no crackles, no wheezes and diminished lung sounds Cardio Rhythm: regular rhythm Heart sounds: S1 normal heart sound present and S2 normal heart sound present GI Inspection: Yes normal to inspection Extrem General: No clubbing and No cyanosis Right lower extremity: lower leg Details: other (boot) Assessment & Plan Assessment & Plan (1) Asthma: Comment: With evidence of eosinophilia Code(s): J45.909 - Unspecified asthma, uncomplicated Category: Medical Qualifiers: Asthma complication type: with acute exacerbation Asthma persistence: persistent Asthma severity: severe Qualified Code(s): J45.51 - Severe persistent asthma with (acute) exacerbation (2) Cardiomegaly: Code(s): I51.7 - Cardiomegaly Category: Medical (3) SHAJI (obstructive sleep apnea): Code(s): G47.33 - Obstructive sleep apnea (adult) (pediatric) Category: Medical Plan continue Daliresp 500mcg continue Trelegy, decrease 200->100mcg JULES as needed benzonatate as needed for cough short-acting beta agonist as needed continue APAP, adjusted to 4-11 follow-up in 6-8 months Coding Level of Care Code Est Pt Level 4 (20483) Diagnoses Severe persistent asthma with acute exacerbation J45.51 Asthma complication type: with acute exacerbation Asthma persistence: persistent Asthma severity: severe Cardiomegaly I51.7 SHAJI (obstructive sleep apnea) G47.33 Time Spent (min) 16
== END 2024-01-05 10:14 | disposition home or self-care (01) ==
PROVIDERS: PCP Nurse Practitioner Primary Care; Visit Provider Hospitalist
DX: J45.51 Severe persistent asthma with (acute) exacerbation (principal); I51.7 Cardiomegaly; G47.33 Obstructive sleep apnea (adult) (pediatric)
CPT/HCPCS: 99214

== ENCOUNTER → 2024-01-05 09:28 | Outpatient (BNVA) | payer OTHER, SELFPAY | PROVIDERS: PCP Nurse Practitioner Primary Care; Visit Provider Hospitalist | DX: J45.51 Severe persistent asthma with (acute) exacerbation (principal); I51.7 Cardiomegaly; G47.33 Obstructive sleep apnea (adult) (pediatric); Z99.89 Dependence on other enabling machines and devices | CPT/HCPCS: 99212 ==

== ENCOUNTER 2024-02-09 09:19 | Outpatient (AMB) | payer OTHER, SELFPAY ==
--- NOTE | 2024-02-09 09:21 | A.OFFVIS_ITS ---
Vital Signs 02/09/24 09:22 Height 5 ft 1 in Weight 340 lb BMI 64.2 Pulse 83 Pulse Source Pulse Oximeter Pulse Oximetry (%) 97 Oxygen Delivery Method Room Air Intake Visit Reasons: asthma [employer]opter Required: No Allergies No Known Allergies Allergy (Verified 02/09/24 09:27) HPI Comments Details: The patient is a 48-year-old woman with known history of asthma, obesity, obstructive sleep apnea who apparently has been developing worsening respiratory symptoms. She was evaluated previously by Pulmonary at [place]. 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 She has been without a doctor now for close to a year. She continues to use the Trelegy inhaler daily. However, she still using her rescue inhaler 3 to 4 times a day because of worsening shortness of breath. She could not tolerate the symptoms and longer and went to the [facility] ED for further evaluation. There she had an x-ray which was personally by me demonstrating increased cardiac silhouette and perihilar congestion. The patient also underwent blood work with evidence of significant eosinophilia. The patient was given 3 days of Lasix in addition to prednisone and to continue her respiratory therapy. However, she has not improved. She continues to struggle with her breathing. She seems very edematous on examination. She also has significant coughing even with minimal exhalation suggesting of a bronchospastic cough. the patient denies having any recent allergy testing. She also denies any recent cardiac evaluation. She has had previous chest x- rays in the past demonstrating the increased cardiac size. To note the patient has not been using her CPAP. She does state right now with her breathlessness she has a hard time tolerating it. She is open to go back to using her CPAP when she feels better. Explained to her that the CPAP would be very crucial at this time especially since it will help her heart the with the volume overload status. The patient understands and she is going to start using it. She will bring her machine in to the next visit. 02/24/2022 the patient is here for a pulmonary follow-up visit. Over soon better. She is responding well to the Trelegy. We did look at her allergy testing was relatively negative. Her eosinophils are also better. She is having shortness of breath but is likely due to the humidity in the air. Otherwise the Trelegy seems to be working well and she is not using her rescue inhaler more than twice a week. In regards of her CPAP she is using more regularly. The CPAP therapy has been affecting beneficial. She is using for about 4 hours a night. I did encourage her to increase the amount of hours she is using it. She states that usually in the morning she has a hard time with. I did download the data. Her AHI is down to 0.6. I did decrease her maximum pressure from 12-11 cm. After minimum pressure of 4 cm. I am hopeful that she can tolerate lower pressure. She is also volume overloaded. She did take the Lasix although did not work as well. Her kidney functions okay. Will go ahead and give her 2 weeks worth of Lasix again so to allow her to decrease her volume. In the meantime she needs to cut down the salt intake. I gave her some ideas of what to do. Otherwise the patient is doing well will follow-up after her echocardiogram and 4-6 months. 05/08/2022 the patient is here for sick visit. She started developing worsening shortness of breath and chest tightness and wheezing. She has been coughing more. She has been using her rescue inhaler about every 2 hours with partial resolution of the symptoms. Therefore she called in to be evaluated. We did have her undergo blood work including CBC with differential and years her elsewhere better. In addition to that on her allergy testing no significant allergies workup in her IgE levels within normal limits. Therefore biologic therapy at this time went up to wait. Patient does increased wheezing today on examination. Will go ahead start her on prednisone for an asthma exacerbation. Also treated for lower respiratory infection. We then with frequent prednisone use and evidence of chronic bronchitis she will be a good candidate for Daliresp. Will go ahead and start her on low dose of 250 mcg hope of increasing it to the max dose for therapeutic effect. To continues on Trelegy inhaler. If the patient is not better will repeat her blood work to see her eosinophils have increased when she is up the prednisone. The patient did have an elevated eosinophil count the past. 07/10/2022 the patient is here for pulmonary follow-up visit. She was doing well until couple days ago when she started developing worsening cough again. Nonproductive in nature. She is coughing while in the office. She does respon d well to the Trelegy. She also tolerated Daliresp. I am hopeful that improved her respiratory symptoms. If not we can always recheck her eosinophil levels to see if they are elevated. The last time she did not qualify for any biologic therapy. In the meantime she does continue to use her CPAP. CPAP therapy continues to be affecting beneficial. She does use it for more than 4 hours a night. We did review her last chest x-ray from January 2022 demonstrating increased interstitial changes. Typically of pulmonary edema. Patient also has lower extremity edema. She responded well to the diuretics. She may need additional diuresis at this time. The patient needs to monitor closely her sodium intake. The patient did undergo an echocardiogram sometime in the summer although is very suboptimal therefore difficult to assess. 04/30/2023 the patient is here for a pulmonary follow-up visit. The patient overall is feeling okay. She still has the nonproductive cough. Urhi-te-lrkttmgl severity. She does respond well to the Tessalon Perles and also to the cough medication. She does respond well to the Trelegy inhaler. Her asthma has been much better controlled. She had a flare of her asthma several weeks ago. She used her nebulizer often and did not require prednisone. Does not look like she is going to need surgery. The patient continues uses CPAP. The CPAP therapy continues to be affecting beneficial. Does try to use it more than 4 hours a night. Not able to download data at this time. Will plan to follow-up in 6 months time or sooner if she develops any new issues. 01/05/2024 the patient is here for a pulmonary follow-up visit. Overall she is doing very well. She is using CPAP every night. Sleep CPAP therapy continues to be affecting beneficial. Her [facility] companies reliable respiratory. She is wondering about a different mask because sometimes bothersome nasal bridge. I did provide her with a small F30 mask she will try and see if his worth switching over to this mask. If it is she can not us know and I can send a script to her [facility] company. I will also request access to her machine through her [facility] company. We can adjusted accordingly. She is looking having bariatric surgery. She is getting close to getting all the arrangements done. She is pretty excited. At this point will provide her with support in order to pursue for surgery. From a respiratory status the patient appears to be doing well on current respiratory regimen. Recently she did require prednisone antibiotics for recent flare-up but at this point she is doing better on the Trelegy 100. We had decreased the dose the last time. At this point will keep her on that dose. 02/09/2024 the patient is here for a pulmonary follow-up visit. She is doing okay. She has been noticing worsening shortness of breath and chest tightness and wheezing. Therefore she has been using her nebulizer every 4 hours. The patient is starting to feel better. She still has a little wheezing so I will give her a small short course of Medrol. Hopefully that improves her symptoms. We can also optimize her respiratory therapy by increasing her Trelegy to the 200 mcg dose. The patient has been using her CPAP. Continues be affecting beneficial. She does use it for more than 4 hours. I did provide her with a new mask the last time and she did have some difficulties putting it on. I did teach her how to do it so she can try. Although she still may go back to her old mask. She will let me know which mask she prefers. In the meantime she will try. If the patient has any worsening symptoms she will call. Also she should have a chest x-ray whenever able. Will follow-up in 4-6 months. [facility] Medical History (Updated 11/29/23 @ 21:13 by Juice Major MD) Asthma-COPD overlap syndrome Anxiety Depression Bipolar disorder Hypertension Asthma Social History Alcohol intake: never Patient Tobacco Use Status: Never used Tobacco Review of Systems Const Denies daytime sleepiness, Reports difficulty sleeping and Denies fever(s) Eyes Denies change in vision ENT Reports nasal congestion and Reports nasal discharge Card Denies chest pain, Denies dyspnea and Reports dyspnea on exertion Resp Reports cough, Denies hemoptysis, Denies dyspnea, Reports dyspnea on exertion, Denies stridor and Denies wheezing GI Reports no additional complaints Musc Reports as per HPI, Reports abnormal gait, Reports myalgias and Reports limited range of motion Skin/Breast Denies rash Neuro Reports no additional complaints and Reports abnormal gait Aller/Immun Denies wheezing Physical Exam Vital Signs: Last Vital Signs Pulse 83 02/09/24 09:22 Pulse Ox 97 02/09/24 09:22 Oxygen Delivery Method Room Air 02/09/24 09:22 BMI result Body Mass Index 64.2 Const General: alert Nutritional Appearance: obese morbidly obese Eyes General: appearance normal, both eyes and all related structures Neck Neck: Yes normal visual inspection, Yes no lymphadenopathy and Yes supple Chest Chest palpation & inspection: normal inspection of the chest Resp Auscultation: no crackles, no wheezes and diminished lung sounds Cardio Rhythm: regular rhythm Heart sounds: S1 normal heart sound present and S2 normal heart sound present GI Inspection: Yes normal to inspection Extrem General: No clubbing and No cyanosis Right lower extremity: lower leg Details: other (boot) Assessment & Plan Assessment & Plan (1) Asthma: Comment: With evidence of eosinophilia Code(s): J45.909 - Unspecified asthma, uncomplicated Category: Medical Qualifiers: Asthma complication type: with acute exacerbation Asthma persistence: persistent Asthma severity: severe Qualified Code(s): J45.51 - Severe persistent asthma with (acute) exacerbation (2) Cardiomegaly: Code(s): I51.7 - Cardiomegaly Category: Medical (3) SHAJI (obstructive sleep apnea): Code(s): G47.33 - Obstructive sleep apnea (adult) (pediatric) Category: Medical Plan continue Daliresp 500mcg continue Trelegy, increase 200mcg medrol pack if worsens CXR JULES as needed benzonatate as needed for cough short-acting beta agonist as needed continue APAP, adjusted to 4-11 follow-up in 6-8 months Orders: Orders XR chest 2V 02/09/24 J45.51 - Severe persistent asthma with (acute) exacerbation Medications: New methylprednisolone (Medrol (Sanya)) PO PER PKG DIR 21 ea 0RF 6 days fjzjhvsrneu-yzrksscyv-hhznhuvh 200-62.5-25 mcg (Trelegy Ellipta) 1 inh in halation DAILY 60 ea 12RF 30 days Discontinued griwsqfpxex-hrkvqdlwl-skotrfve 100-62.5-25 mcg (Trelegy Ellipta) Discontinued Reason: Doctor's Order 1 inh inhalation DAILY 30 days 60 ea 11RF J44.9 - Chronic obstructive pulmonary disease, unspecified Coding Level of Care Code Est Pt Level 4 (13097) Diagnoses Severe persistent asthma with acute exacerbation J45.51 Asthma complication type: with acute exacerbation Asthma persistence: persistent Asthma severity: severe Cardiomegaly I51.7 SHAJI (obstructive sleep apnea) G47.33 Time Spent (min) 16
[2024-02-09 09:22] VITALS: PULSE 83; O2SAT 97; BMI 64.2
== END 2024-02-09 09:47 | disposition home or self-care (01) ==
PROVIDERS: PCP Nurse Practitioner Primary Care; Visit Provider Hospitalist
DX: J45.51 Severe persistent asthma with (acute) exacerbation (principal); I51.7 Cardiomegaly; G47.33 Obstructive sleep apnea (adult) (pediatric)
CPT/HCPCS: 99214

== ENCOUNTER → 2024-02-09 09:19 | Outpatient (BNVA) | payer OTHER, SELFPAY | PROVIDERS: PCP Nurse Practitioner Primary Care; Visit Provider Hospitalist | DX: J45.51 Severe persistent asthma with (acute) exacerbation (principal); I51.7 Cardiomegaly; G47.33 Obstructive sleep apnea (adult) (pediatric); Z79.899 Other long term (current) drug therapy | CPT/HCPCS: 99212 ==

== ENCOUNTER 2024-07-27 15:20 | Outpatient (AMB) | payer OTHER, SELFPAY ==
--- NOTE | 2024-07-27 15:22 | A.OFFVIS_ITS ---
Vital Signs 07/27/24 15:23 Height 5 ft 1 in Weight 332 lb 14.368 oz BMI 62.9 BP 140/86 H Blood Pressure Location Rt brachial Position Sitting Pulse 102 H Pulse Source Pulse Oximeter Pulse Oximetry (%) 98 Oxygen Delivery Method Room Air Intake Visit Reasons: asthma exacerbation Allergies No Known Allergies Allergy (Verified 07/27/24 15:25) HPI Comments Details: The patient is a 48-year-old woman with known history of asthma, obesity, obstructive sleep apnea who apparently has been developing worsening respiratory symptoms. She was evaluated previously by Pulmonary at [place]. 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 She has been without a doctor now for close to a year. She continues to use the Trelegy inhaler daily. However, she still using her rescue inhaler 3 to 4 times a day because of worsening shortness of breath. She could not tolerate the symptoms and longer and went to the [facility] ED for further evaluation. There she had an x-ray which was personally by me demonstrating increased cardiac silhouette and perihilar congestion. The patient also underwent blood work with evidence of significant eosinophilia. The patient was given 3 days of Lasix in addition to prednisone and to continue her respiratory therapy. However, she has not improved. She continues to struggle with her breathing. She seems very edematous on examination. She also has significant coughing even with minimal exhalation suggesting of a bronchospastic cough. the patient denies having any recent allergy testing. She also denies any recent cardiac evaluation. She has had previous chest x- rays in the past demonstrating the increased cardiac size. To note the patient has not been using her CPAP. She does state right now with her breathlessness she has a hard time tolerating it. She is open to go back to using her CPAP when she feels better. Explained to her that the CPAP would be very crucial at this time especially since it will help her heart the with the volume overload status. The patient understands and she is going to start using it. She will bring her machine in to the next visit. 02/24/2022 the patient is here for a pulmonary follow-up visit. Over soon better. She is responding well to the Trelegy. We did look at her allergy testing was relatively negative. Her eosinophils are also better. She is having shortness of breath but is likely due to the humidity in the air. Otherwise the Trelegy seems to be working well and she is not using her rescue inhaler more than twice a week. In regards of her CPAP she is using more regularly. The CPAP therapy has been affecting beneficial. She is using for about 4 hours a night. I did encourage her to increase the amount of hours she is using it. She states that usually in the morning she has a hard time with. I did download the data. Her AHI is down to 0.6. I did decrease her maximum pressure from 12-11 cm. After minimum pressure of 4 cm. I am hopeful that she can tolerate lower pressure. She is also volume overloaded. She did take the Lasix although did not work as well. Her kidney functions okay. Will go ahead and give her 2 weeks worth of Lasix again so to allow her to decrease her volume. In the meantime she needs to cut down the salt intake. I gave her some ideas of what to do. Otherwise the patient is doing well will follow-up after her echocardiogram and 4-6 months. 05/08/2022 the patient is here for sick visit. She started developing worsening shortness of breath and chest tightness and wheezing. She has been coughing more. She has been using her rescue inhaler about every 2 hours with partial resolution of the symptoms. Therefore she called in to be evaluated. We did have her undergo blood work including CBC with differential and years her elsewhere better. In addition to that on her allergy testing no significant allergies workup in her IgE levels within normal limits. Therefore biologic therapy at this time went up to wait. Patient does increased wheezing today on examination. Will go ahead start her on prednisone for an asthma exacerbation. Also treated for lower respiratory infection. We then with frequent prednisone use and evidence of chronic bronchitis she will be a good candidate for Daliresp. Will go ahead and start her on low dose of 250 mcg hope of increasing it to the max dose for therapeutic effect. To continues on Trelegy inhaler. If the patient is not better will repeat her blood work to see her eosinophils have increased when she is up the prednisone. The patient did have an elevated eosinophil count the past. 07/10/2022 the patient is here for pulmonary follow-up visit. She was doing well until couple days ago when she started developing worsening cough again. Nonproductive in nature. She is coughing while in the office. She does respond well to the Trelegy. She also tolerated Daliresp. I am hopeful that im proved her respiratory symptoms. If not we can always recheck her eosinophil levels to see if they are elevated. The last time she did not qualify for any biologic therapy. In the meantime she does continue to use her CPAP. CPAP therapy continues to be affecting beneficial. She does use it for more than 4 hours a night. We did review her last chest x-ray from January 2022 demonstrating increased interstitial changes. Typically of pulmonary edema. Patient also has lower extremity edema. She responded well to the diuretics. She may need additional diuresis at this time. The patient needs to monitor closely her sodium intake. The patient did undergo an echocardiogram sometime in the summer although is very suboptimal therefore difficult to assess. 04/30/2023 the patient is here for a pulmonary follow-up visit. The patient overall is feeling okay. She still has the nonproductive cough. Ssqf-cy-wvqicgri severity. She does respond well to the Tessalon Perles and also to the cough medication. She does respond well to the Trelegy inhaler. Her asthma has been much better controlled. She had a flare of her asthma several weeks ago. She used her nebulizer often and did not require prednisone. Does not look like she is going to need surgery. The patient continues uses CPAP. The CPAP therapy continues to be affecting beneficial. Does try to use it more than 4 hours a night. Not able to download data at this time. Will plan to follow-up in 6 months time or sooner if she develops any new issues. 01/05/2024 the patient is here for a pulmonary follow-up visit. Overall she is doing very well. She is using CPAP every night. Sleep CPAP therapy continues to be affecting beneficial. Her [employer] companies reliable respiratory. She is wondering about a different mask because sometimes bothersome nasal bridge. I did provide her with a small F30 mask she will try and see if his worth switching over to this mask. If it is she can not us know and I can send a script to her [employer] company. I will also request access to her machine through her [employer] company. We can adjusted accordingly. She is looking having bariatric surgery. She is getting close to getting all the arrangements done. She is pretty excited. At this point will provide her with support in order to pursue for surgery. From a respiratory status the patient appears to be doing well on current respiratory regimen. Recently she did require prednisone antibiotics for recent flare-up but at this point she is doing better on the Trelegy 100. We had decreased the dose the last time. At this point will keep her on that dose. 02/09/2024 the patient is here for a pulmonary follow-up visit. She is doing okay. She has been noticing worsening shortness of breath and chest tightness and wheezing. Therefore she has been using her nebulizer every 4 hours. The patient is starting to feel better. She still has a little wheezing so I will give her a small short course of Medrol. Hopefully that improves her symptoms. We can also optimize her respiratory therapy by increasing her Trelegy to the 200 mcg dose. The patient has been using her CPAP. Continues be affecting beneficial. She does use it for more than 4 hours. I did provide her with a new mask the last time and she did have some difficulties putting it on. I did teach her how to do it so she can try. Although she still may go back to her old mask. She will let me know which mask she prefers. In the meantime she will try. If the patient has any worsening symptoms she will call. Also she should have a chest x-ray whenever able. Will follow-up in 4-6 months. 07/27/2024 the patient is here for a pulmonary follow-up visit. The patient overall has been having hard time with her asthma. She has been having increased wheezing and coughing. Positive sick contacts. She has been tolerating the Trelegy and has been helping. She was supposed of chest x-ray but she has not had 1 as of yet. She continues uses CPAP every night. CPAP therapy continues to be affecting beneficial. Will go ahead and send her additional medications to the pharmacy. I worry about her sugars and diabetes. Therefore the Medrol Sanya is a little easier for her to take. If she has any worsening symptoms prior to that she should get her x-ray and call. [facility] Medical History (Updated 11/29/23 @ 21:13 by Juice Major MD) Asthma-COPD overlap syndrome Anxiety Depression Bipolar disorder Hypertension Asthma Social History Alcohol intake: never Patient Tobacco Use Status: Never used Tobacco Review of Systems Const Denies daytime sleepiness, Reports difficulty sleeping and Denies fever(s) Eyes Denies change in vision ENT Reports nasal congestion and Reports nasal discharge Card Denies chest pain, Denies dyspnea and Reports dyspnea on exertion Resp Reports chest congestion, Reports cough, Denies hemoptysis, Denies dyspnea, Reports dyspnea on exertion, Denies stridor and Reports wheezing GI Reports no additional complaints Musc Reports as per HPI, Reports abnormal gait, Reports myalgias and Reports limited range of motion Skin/Breast Denies rash Neuro Reports no additional complaints and Reports abnormal gait Aller/Immun Reports wheezing Physical Exam Vital Signs: Last Vital Signs Pulse 102 H 07/27/24 15:23 BP 140/86 H 07/27/24 15:23 Pulse Ox 98 07/27/24 15:23 Oxygen Delivery Method Room Air 07/27/24 15:23 BMI result Body Mass Index 62.9 Const General: alert Nutritional Appearance: obese morbidly obese Eyes General: appearance normal, both eyes and all related structures Neck Neck: Yes normal visual inspection, Yes no lymphadenopathy and Yes supple Chest Chest palpation & inspection: normal inspection of the chest Resp Auscultation: no crackles, wheezes and diminished lung sounds Cardio Rhythm: regular rhythm Heart sounds: S1 normal heart sound present and S2 normal heart sound present GI Inspection: Yes normal to inspection Extrem General: No clubbing and No cyanosis Right lower extremity: lower leg Details: other (boot) Assessment & Plan Assessment & Plan (1) Asthma: Comment: With evidence of eosinophilia Code(s): J45.909 - Unspecified asthma, uncomplicated Category: Medical Qualifiers: Asthma complication type: with acute exacerbation Asthma persistence: persistent Asthma severity: severe Qualified Code(s): J45.51 - Severe persistent asthma with (acute) exacerbation (2) Cardiomegaly: Code(s): I51.7 - Cardiomegaly Category: Medical (3) SHAJI (obstructive sleep apnea): Code(s): G47.33 - Obstructive sleep apnea (adult) (pediatric) Category: Medical Plan continue Daliresp 500mcg continue Trelegy, increase 200mcg medrol pack doxycycline CXR JULES as needed benzonatate as needed for cough short-acting beta agonist as needed continue APAP, adjusted to 4-11 follow-up in 6-8 months Orders: Orders SARS-CoV2/FLU/RSV Today J45.51 - Severe persistent asthma with (acute) exacerbation Medications: New methylprednisolone (Medrol (Sanya)) PO PER PKG DIR 21 ea 0RF 6 days doxycycline hyclate 100 mg PO BID 20 caps 0RF 10 days Coding Level of Care Code Est Pt Level 4 (04917) Diagnoses Severe persistent asthma with acute exacerbation J45.51 Asthma complication type: with acute exacerbation Asthma persistence: persistent Asthma severity: severe Cardiomegaly I51.7 SHAJI (obstructive sleep apnea) G47.33 Time Spent (min) 16
[2024-07-27 15:23] VITALS: BP 140/86; PULSE 102; O2SAT 98; BMI 62.9
== END 2024-07-27 15:43 | disposition home or self-care (01) ==
PROVIDERS: PCP Nurse Practitioner Primary Care; Visit Provider Hospitalist
DX: J45.51 Severe persistent asthma with (acute) exacerbation (principal); I51.7 Cardiomegaly; G47.33 Obstructive sleep apnea (adult) (pediatric)
CPT/HCPCS: 99214

== ENCOUNTER 2024-07-27 15:20 | Outpatient (REF) | payer OTHER, SELFPAY ==
[2024-07-27 16:40] LABS: Influenza A PCR NEGATIVE (Negative); Influenza B PCR NEGATIVE (Negative); Resp Syncy Virus RNA Qual PCR NEGATIVE (Negative); SARS COV2 PCR INHOUSE NEGATIVE (Negative)
== END 2024-07-27 15:21 | disposition home or self-care (01) ==
LOC: HO.LNP 15:20
PROVIDERS: PCP Nurse Practitioner Primary Care; Visit Provider Hospitalist
DX: J45.51 Severe persistent asthma with (acute) exacerbation (principal); I51.7 Cardiomegaly; G47.33 Obstructive sleep apnea (adult) (pediatric)
CPT/HCPCS: 0241U; 99212

== ENCOUNTER 2024-08-08 12:46 | Outpatient (AMB) | payer OTHER, SELFPAY ==
--- NOTE | 2024-08-08 13:27 | A.OFFVIS_ITS ---
Intake Visit Reasons: f/u w/ PVR Intake Note: Patient presents today for a follow-up on: incontinence, urgency, and frequency Meds- Oxybutynin Allergies to Antibiotic- No Known Allergies Blood Thinner- None Post Void Residual: 0ml's Learning Support Resource Room Teacher Required: Yes Learning Support Resource Room Teacher Services: Learning Support Resource Room Teacher Present Learning Support Resource Room Teacher Name: BENJA Accompanied by: Self / Same As Patient Allergies No Known Allergies Allergy (Verified 08/08/24 13:59) Medication List - Last Reconciled 08/08/24 by MARLEEN Joseph- albuterol sulfate 2.5 mg (3 mL) inhalation Q4-6H PRN albuterol sulfate 90 mcg/actuation (Ventolin HFA) 2 puffs inhalation Q6H PRN amlodipine 2.5 mg PO DAILY bupropion HCl XL 300 mg PO DAILY cholecalciferol (vitamin D3) 50 mcg PO DAILY CPAP (CPAP Machine/Device) As directed enalapril maleate 20 mg PO BID famotidine (Heartburn Relief (famotidine)) mg PO fluticasone furoate-vilanterol 200-25 mcg/dose (Breo Ellipta) 1 inh inhalation DAILY 30 days furosemide (Lasix) 20 mg PO DAILY 14 days hydroxyzine HCl 25 mg PO BID PRN loratadine 10 mg PO DAILY meloxicam 15 mg PO DAILY metformin ER 500 mg PO DAILY methylprednisolone (Medrol (Sanya)) PO PER PKG DIR 6 days methylprednisolone (Medrol (Sanya)) PO PER PKG DIR 6 days montelukast 10 mg PO DAILY 90 days nebulizers As directed oxybutynin chloride ER 20 mg (2 x 10 mg) PO DAILY 90 days ramelteon (Rozerem) 8 mg PO BEDTIME roflumilast 500 mcg PO DAILY topiramate 50 mg PO DAILY umeclidinium 62.5 mcg/actuation (Incruse Ellipta) 1 inh inhalation DAILY 30 days HPI Comments Details: Mariaelena is a very pleasant 48-year-old Chinese-speaking female patient of Dr. Calles. She has a past medical history of anxiety, depression, bipolar disorder, hypertension, asthma, and obesity. She presents to the office today for follow- up. In discussion with the patient today she reports to be doing and feeling well. She denies any bothersome urinary issues or concerns. She reports compliance with oxybutynin as prescribed and discusses how this has significantly improved her episodes of urinary urgency and frequency. She also reports feeling this has significantly improved her quality of life. In office urinalysis results reviewed with the patient today. PVR 0 mL. Previous workup has included a retroperitoneal ultrasound 05/31 noting bilateral kidneys with no hydronephrosis, and or calculi seen. The bladder is partially distended. Bilateral ureteral jets are demonstrated. Pre void bladder volume is approximately 165 mL. Postvoid bladder volume is approximately 30 mL. She has a history of having four childbirths. Discussed at length potential causes for lower urinary tract symptoms patient was experiencing. Discussed at length pelvic floor therapy as well as medications. Currently patient does not wish to undergo pelvic floor therapy. She otherwise denies hematuria, dysuria, foul smelling urine, changes to urinary stream, flank pain, fever, and or chills. [facility] Medical History Asthma-COPD overlap syndrome Anxiety Depression Bipolar disorder Hypertension Asthma Social History Alcohol intake: never Patient Tobacco Use Status: Never used Tobacco Review of Systems Const Reports no additional complaints Eyes Reports no additional complaints ENT Reports no additional complaints Card Reports as per HPI Resp Reports as per HPI GI Reports no additional complaints Reports as per HPI Neuro Reports as per HPI Psych Reports as per HPI Endo Reports no additional complaints Physical Exam Const General: cooperative, healthy appearing, comfortable, no acute distress, well developed, alert and awake Nutritional Appearance: overweight Orientation/consciousness: patient oriented x3 Limitations: no limitations HEENT Head: Yes normal to inspection, Yes normocephalic and Yes atraumatic Ears: hearing grossly normal bilaterally Eyes General: appearance normal, both eyes and all related structures Neck Neck: Yes normal visual inspection and Yes trachea midline Chest Chest palpation & inspection: normal inspection of the chest Resp Effort & Inspection: normal respiratory effort and able to speak in complete sentences Cardio Rate: regular rate GI Inspection: Yes normal to inspection General: Yes no CVA tenderness Back/Spine/Pelvis Back: no CVA tenderness Skin General skin exam: no rashes or lesions noted Neuro General: patient oriented x3 Extrem General: Yes normal to inspection Psych Appearance: grossly normal and well kempt Mental Status: mental status grossly normal Speech and movement: Normal speech and movement present and Clear speech present Affect: normal affect Attitude: cooperative Thought process: Normal thought process present Thought content: Normal thought content present Insight: Fair insight present (Psych) Judgement: Fair judgement present (Psych) Office Procedures Post Void Residual Post Residual Void Post Void Residual (PVR): 0 46948-Ubll Void Residual by ultrasound Results AMB Urinalysis, Automated UA Leukoctes 0 Rafi/uL Last Edit by [facility] on 08/08/24 13:42 UA Nitrite Last Edit by [facility] on 08/08/24 13:42 UA Urobilinogen 0.2 mg/dL Last Edit by [facility] on 08/08/24 13:42 UA Protein 0 mg/dL Last Edit by [facility] on 08/08/24 13:42 UA pH 6.0 Last Edit by [facility] on 08/08/24 13:42 UA Blood 0 Tremaine/uL Last Edit by [facility] on 08/08/24 13:42 UA Specific Commerce 1.020 Last Edit by [facility] on 08/08/24 13:42 UA Ketone Last Edit by [facility] on 08/08/24 13:42 UA Bilirubin 0 mg/dL Last Edit by [facility] on 08/08/24 13:42 UA Glucose 0 mg/dL Last Edit by [facility] on 08/08/24 13:42 Results Reviewed Results Reviewed: Laboratory Last Values Urine pH (Auto) 6.0 08/08/24 13:40 Specific Commerce (Auto) 1.020 08/08/24 13:40 Urine Protein (Auto) 0 mg/dL 08/08/24 13:40 Glucose (UA)(Auto) 0 mg/dL 08/08/24 13:40 Urine Blood (Auto) 0 Tremaine/uL 08/08/24 13:40 Urine Bilirubin (Auto) 0 mg/dL 08/08/24 13:40 Urine Urobilinogen (Auto) 0.2 mg/dL 08/08/24 13:40 Leukocyte Esterase (Auto) 0 Rafi/uL 08/08/24 13:40 Assessment & Plan Assessment & Plan (1) Urinary urgency: Code(s): R39.15 - Urgency of urination Category: Medical (2) Urinary frequency: Code(s): R35.0 - Frequency of micturition Category: Medical (3) Urinary incontinence, urge: Code(s): N39.41 - Urge incontinence Category: Medical Plan In office urinalysis results reviewed with the patient today; as noted above. PVR 0 mL. Discussed at length bladder triggers/irritants. Continue oxybutynin 20 mg as discussed and prescribed. Discussed at length importance of losing weight for improvement in lower urinary tract symptoms as well as overall health and well-being. Discussed pelvic floor therapy however patient declines at this time. Discussed near future in office cystoscopy or urodynamics if symptoms arise and or worsen. Follow-up in 6 months with PVR; or sooner with any issues, concerns, and or questions. Orders: Orders AMB Post Void Residual by ultrasound Today R39.15 - Urgency of urination AMB Urinalysis Automated Today Z13.9 - Encounter for screening, unspecified Patient Instructions: The patient had an opportunity to ask questions regarding the treatment plan. All questions were answered. Physical exam, labs, and imaging were discussed and reviewed in detail. As well as risks, benefits, and discussion of treatment choices. No major barriers to understanding were identified. The patient expressed understanding and agreement with the above treatment plan. The patient was made aware they should contact our office by phone for worsening of their current condition, the appearance of new symptoms, or with any questions or concerns. Compliance is encouraged with any medications and follow up testing that is ordered. It is a privilege to be allowed the opportunity to participate in? your urological care.? Again, if you have any questions or concerns If you have any questions or concerns please do not hesitate to contact me. The office is [phone]. This note is constructed using voice recognition software. While every effort has been made to ensure accuracy overnight associate errors may have been included. Yours sincerely, CHARISSE Joseph Coding Level of Care Code Est Pt Level 3 (62622) Diagnoses Urinary urgency R39.15 Urinary frequency R35.0 Urinary incontinence, urge N39.41 CPT Codes Post Residual Void - PVR CPT Code: 27899-Xlxn Void Residual by ultrasound ([id number])
== END 2024-08-08 13:56 | disposition home or self-care (01) ==
PROVIDERS: PCP Nurse Practitioner Primary Care; Visit Provider Nurse Practitioner Family
DX: R39.15 Urgency of urination (principal); R35.0 Frequency of micturition; N39.41 Urge incontinence; Z13.9 Encounter for screening, unspecified
CPT/HCPCS: 99213

== ENCOUNTER → 2024-08-08 12:46 | Outpatient (BNVA) | payer OTHER, SELFPAY | PROVIDERS: PCP Nurse Practitioner Primary Care; Visit Provider Nurse Practitioner Family | DX: R39.15 Urgency of urination (principal); R35.0 Frequency of micturition; N39.41 Urge incontinence | CPT/HCPCS: 51798; 81003; 99212 ==

== ENCOUNTER 2024-10-20 09:34 | Outpatient (AMB) | payer OTHER, SELFPAY ==
[2024-10-20 09:37] VITALS: BP 136/88; PULSE 93; O2SAT 96; BMI 62.1
--- NOTE | 2024-10-20 09:37 | A.OFFVIS_ITS ---
Vital Signs 10/20/24 09:37 Height 5 ft 1 in Weight 328 lb 7.82 oz BMI 62.1 BP 136/88 Blood Pressure Location Rt radial Position Sitting Pulse 93 Pulse Source Pulse Oximeter Pulse Oximetry (%) 96 Oxygen Delivery Method Room Air Intake Visit Reasons: Asthma Allergies No Known Allergies Allergy (Verified 08/08/24 13:59) HPI Comments Details: The patient is a 48-year-old woman with known history of asthma, obesity, obstructive sleep apnea who apparently has been developing worsening respiratory symptoms. She was evaluated previously by Pulmonary at [place]. Apparently her landscaping supervisor left. She has been without a doctor now for close to a year. She continues to use the Trelegy inhaler daily. However, she still using her rescue inhaler 3 to 4 times a day because of worsening shortness of breath. She could not tolerate the symptoms and longer and went to the [facility] ED for further evaluation. There she had an x-ray which was personally by me demonstrating increased cardiac silhouette and perihilar congestion. The patient also underwent blood work with evidence of significant eosinophilia. The patient was given 3 days of Lasix in addition to prednisone and to continue her respiratory therapy. However, she has not improved. She continues to struggle with her breathing. She seems very edematous on examination. She also has significant coughing even with minimal exhalation suggesting of a bronchospastic cough. the patient denies having any recent allergy testing. She also denies any recent cardiac evaluation. She has had previous chest x- rays in the past demonstrating the increased cardiac size. To note the patient has not been using her CPAP. She does state right now with her breathlessness she has a hard time tolerating it. She is open to go back to using her CPAP when she feels better. Explained to her that the CPAP would be very crucial at this time especially since it will help her heart the with the volume overload status. The patient understands and she is going to start using it. She will bring her machine in to the next visit. 02/24/2022 the patient is here for a pulmonary follow-up visit. Over soon better. She is responding well to the Trelegy. We did look at her allergy testing was relatively negative. Her eosinophils are also better. She is having shortness of breath but is likely due to the humidity in the air. Otherwise the Trelegy seems to be working well and she is not using her rescue inhaler more than twice a week. In regards of her CPAP she is using more regularly. The CPAP therapy has been affecting beneficial. She is using for about 4 hours a night. I did encourage her to increase the amount of hours she is using it. She states that usually in the morning she has a hard time with. I did download the data. Her AHI is down to 0.6. I did decrease her maximum pressure from 12-11 cm. After minimum pressure of 4 cm. I am hopeful that she can tolerate lower pressure. She is also volume overloaded. She did take the Lasix although did not work as well. Her kidney functions okay. Will go ahead and give her 2 weeks worth of Lasix again so to allow her to decrease her volume. In the meantime she needs to cut down the salt intake. I gave her some ideas of what to do. Otherwise the patient is doing well will follow-up after her echocardiogram and 4-6 months. 05/08/2022 the patient is here for sick visit. She started developing worsening shortness of breath and chest tightness and wheezing. She has been coughing more. She has been using her rescue inhaler about every 2 hours with partial resolution of the symptoms. Therefore she called in to be evaluated. We did have her undergo blood work including CBC with differential and years her elsewhere better. In addition to that on her allergy testing no significant allergies workup in her IgE levels within normal limits. Therefore biologic therapy at this time went up to wait. Patient does increased wheezing today on examination. Will go ahead start her on prednisone for an asthma exacerbation. Also treated for lower respiratory infection. We then with frequent prednisone use and evidence of chronic bronchitis she will be a good candidate for Daliresp. Will go ahead and start her on low dose of 250 mcg hope of increasin g it to the max dose for therapeutic effect. To continues on Trelegy inhaler. If the patient is not better will repeat her blood work to see her eosinophils have increased when she is up the prednisone. The patient did have an elevated eosinophil count the past. 07/10/2022 the patient is here for pulmonary follow-up visit. She was doing well until couple days ago when she started developing worsening cough again. Nonproductive in nature. She is coughing while in the office. She does respond well to the Trelegy. She also tolerated Daliresp. I am hopeful that improved her respiratory symptoms. If not we can always recheck her eosinophil levels to see if they are elevated. The last time she did not qualify for any biologic therapy. In the meantime she does continue to use her CPAP. CPAP therapy continues to be affecting beneficial. She does use it for more than 4 hours a night. We did review her last chest x-ray from January 2022 demonstrating increased interstitial changes. Typically of pulmonary edema. Patient also has lower extremity edema. She responded well to the diuretics. She may need additional diuresis at this time. The patient needs to monitor closely her sodium intake. The patient did undergo an echocardiogram sometime in the summer although is very suboptimal therefore difficult to assess. 04/30/2023 the patient is here for a pulmonary follow-up visit. The patient overall is feeling okay. She still has the nonproductive cough. Vbny-ji-lpaxezyz severity. She does respond well to the Tessalon Perles and also to the cough medication. She does respond well to the Trelegy inhaler. Her asthma has been much better controlled. She had a flare of her asthma several weeks ago. She used her nebulizer often and did not require prednisone. Does not look like she is going to need surgery. The patient continues uses CPAP. The CPAP therapy continues to be affecting beneficial. Does try to use it more than 4 hours a night. Not able to download data at this time. Will plan to follow-up in 6 months time or sooner if she develops any new issues. 01/05/2024 the patient is here for a pulmonary follow-up visit. Overall she is doing very well. She is using CPAP every night. Sleep CPAP therapy continues to be affecting beneficial. Her [employer] companies reliable respiratory. She is wondering about a different mask because sometimes bothersome nasal bridge. I did provide her with a small F30 mask she will try and see if his worth switching over to this mask. If it is she can not us know and I can send a script to her [employer] company. I will also request access to her machine through her [employer] company. We can adjusted accordingly. She is looking having bariatric surgery. She is getting close to getting all the arrangements done. She is pretty excited. At this point will provide her with support in order to pursue for surgery. From a respiratory status the patient appears to be doing well on current respiratory regimen. Recently she did require prednisone antibiotics for recent flare-up but at this point she is doing better on the Trelegy 100. We had decreased the dose the last time. At this point will keep her on that dose. 02/09/2024 the patient is here for a pulmonary follow-up visit. She is doing okay. She has been noticing worsening shortness of breath and chest tightness and wheezing. Therefore she has been using her nebulizer every 4 hours. The patient is starting to feel better. She still has a little wheezing so I will give her a small short course of Medrol. Hopefully that improves her symptoms. We can also optimize her respiratory therapy by increasing her Trelegy to the 200 mcg dose. The patient has been using her CPAP. Continues be affecting beneficial. She does use it for more than 4 hours. I did provide her with a new mask the last time and she did have some difficulties putting it on. I did teach her how to do it so she can try. Although she still may go back to her old mask. She will let me know which mask she prefers. In the meantime she will try. If the patient has any worsening symptoms she will call. Also she should have a chest x-ray whenever able. Will follow-up in 4-6 months. 07/27/2024 the patient is here for a pulmonary follow-up visit. The patient overall has been having hard time with her asthma. She has been having increased wheezing and coughing. Positive sick contacts. She has been tolerating the Trelegy and has been helping. She was supposed of chest x-ray but she has not had 1 as of yet. She continues uses CPAP every night. CPAP therapy continues to be affecting beneficial. Will go ahead and send her additional medications to the pharmacy. I worry about her sugars and diabetes. Therefore the Medrol Sanya is a little easier for her to take. If she has any worsening symptoms prior to that she should get her x-ray and call. 10/20/2024 the patient is here for pulmonary follow-up visit. Overall she is doing okay. She has been tried uses CPAP more. The CPAP therapy has been very affecting beneficial for her. Although she needs to be able to use it 4 hours a night. Her respiratory inhalers are okay. She did not get the Trelegy so therefore she had been using Breo and Incruse. Will make sure that she has all her medications at the pharmacy. In addition to that we did look at a previous chest x-ray. She did have an increased cardiac size. After that she did have an echo which was reassuring. Will go ahead and repeat her x-ray at this time. She continues to have dyspnea on exertion. Mynu-bm-[id number] severity. Part due to her body habitus. She recently started on weight loss injections to help with prediabetes and also help with the weight loss. This should also help her underlying comorbidities. [facility] Medical History Asthma-COPD overlap syndrome Anxiety Depression Bipolar disorder Hypertension Asthma Social History Alcohol intake: never Patient Tobacco Use Status: Never used Tobacco Review of Systems Const Denies daytime sleepiness, Reports difficulty sleeping and Denies fever(s) Eyes Denies change in vision ENT Reports nasal congestion and Reports nasal discharge Card Denies chest pain, Denies dyspnea and Reports dyspnea on exertion Resp Reports chest congestion, Reports cough, Denies hemoptysis, Denies dyspnea, Reports dyspnea on exertion, Denies stridor and Reports wheezing GI Reports no additional complaints Musc Reports as per HPI, Reports abnormal gait, Reports myalgias and Reports limited range of motion Skin/Breast Denies rash Neuro Reports no additional complaints and Reports abnormal gait Aller/Immun Reports wheezing Physical Exam Vital Signs: Last Vital Signs Pulse 93 10/20/24 09:37 BP 136/88 10/20/24 09:37 Pulse Ox 96 10/20/24 09:37 Oxygen Delivery Method Room Air 10/20/24 09:37 BMI result Body Mass Index 62.1 Const General: alert Nutritional Appearance: obese morbidly obese Eyes General: appearance normal, both eyes and all related structures Neck Neck: Yes normal visual inspection, Yes no lymphadenopathy and Yes supple Chest Chest palpation & inspection: normal inspection of the chest Resp Auscultation: no crackles and diminished lung sounds Cardio Rhythm: regular rhythm Heart sounds: S1 normal heart sound present and S2 normal heart sound present GI Inspection: Yes normal to inspection Extrem General: No clubbing and No cyanosis Right lower extremity: lower leg Details: other (boot) Office Procedures Flu Questionnaire Does the patient have a severe egg allergy?: No Does the patient have severe life threatening allergies?: No Does the patient have a fever or illness today?: No Has the patient ever had Guillain-Vernon Syndrome?: No Has the patient ever had any past reaction to a flu shot?: No Immunizations Fluarix Triv 4337-8020 (PF) 45 mcg (15 mcg x 3)/0.5 mL IM syringe Performing Provider: Juice Major MD Performing Location: [facility] Administered by: Evy Min LPN on 10/20/24 10:03 Dose Route Admin Location Dispensed Lot Number Expiration Date NDC Assisted [facility] Care Manager 0.5 mL IM Right Deltoid 0.5 mL [id number] 02/05/25 11138-029-49 [employer] VIS Given Date VIS Provided VIS Publication Date 10/20/24 Single Vaccine 21 Eligibility Eligibility Date Funding Source Not [facility] Eligible 10/20/24 Private Assessment & Plan Assessment & Plan (1) Cardiomegaly: Code(s): I51.7 - Cardiomegaly Category: Medical (2) SHAJI (obstructive sleep apnea): Code(s): G47.33 - Obstructive sleep apnea (adult) (pediatric) Category: Medical Plan continue Daliresp 500mcg continue Breo 200mcg continue Incruse CXR JULES as needed benzonatate as needed for cough short-acting beta agonist as needed continue APAP, adjusted to 4-11 follow-up in 6-8 months Orders: Orders Influenza [id number] Immunization 10/20/24 J45.51 - Severe persistent asthma with (acute) exacerbation XR chest 2V 10/20/24 I51.7 - Cardiomegaly Medications: Refilled fluticasone furoate-vilanterol 200-25 mcg/dose (Breo Ellipta) 1 inh inhalation DAILY 60 ea 11RF 30 days albuterol sulfate 90 mcg/actuation (Ventolin HFA) 2 puffs inhalation Q6H PRN 18 grams 11RF for wheezing umeclidinium 62.5 mcg/actuation (Incruse Ellipta) 1 inh inhalation DAILY 30 ea 11RF 30 days J45.909 - Unspecified asthma, uncomplicated Coding Level of Care Code Est Pt Level 4 (80380) Diagnoses Cardiomegaly I51.7 SHAJI (obstructive sleep apnea) G47.33 Time Spent (min) 16
--- OUTSIDE RECORDS SUMMARY | 2024-10-20 10:29 | XMS_ITS | Encounter Summary ---
Author Organization [facility] Address [address] [place] [address] Care Team Providers Care Humanities And Languages Professor Name Role Phone Valentine Walters MD Primary Care Provider U Kate Martinez MD Primary Care Provider [phone] Reason for Visit * Reason Onset Date Comments DME Request 02/16/2020 Encounter Details Date Type Department Care Team Description 02/16/2020 Telephone Pulmonology - [place] [address] [facility] [address] [place] [phone] Stephanie Delgado FNP [address] [place] [address] DME Request Social History Tobacco Use Types Packs/Day Years Used Date Smoking Tobacco: Never Smokeless Tobacco: Never Alcohol Use Standard Drinks/Week Comments Yes 0 (1 standard drink = 0.6 oz pur e alcohol) rarely Sex Assigned at Date Recorded Not on file Job Start Date Occupation Industry Not on file Not on file Not on file documented as of this encounter Miscellaneous Notes * Telephone Encounter - Dina Doherty M.A. - 02/16/2020 10:20 AM EDT Spoke with Ze at [employer] and he stated that they sent the machine to patient on 02/01/20. I called patient and she stated she hasn't received it so I advised her to clear this up with [employer]. * Telephone Encounter - MARLEEN Allen - 02/16/2020 9:55 AM EDT Please check with [facility] as they do accept [facility] - if they do not take her plan, please send the order to [facility] * Telephone Encounter - Jeanette Major - 02/16/2020 9:39 AM EDT Patient its calling due that company of the CPAP machine call her that the insurance don't cover it. Patient don't remember the name of the company. But she call the Insurance and they told her that indeed the insurance cover it, that they haven receive any prescription for the machine. She needs the machine Advice documented in this encounter Plan of Treatment Not on file documented as of this encounter Visit Diagnoses Not on filedocumented in this encounter Care Teams Humanities And Languages Professor Relationship Specialty Start Date End Date Valentine Walters MD PCP - General Internal Medicine 08/24/1807/09 Kate Phillip MD PCP - General Internal Medicine 07/22/22 documented as of this encounter
--- OUTSIDE RECORDS SUMMARY | 2024-10-20 10:29 | XMS_ITS | Encounter Summary ---
Author Organization [facility] Address [address] [place] [address] Care Team Providers Care Curator Of Collections Name Role Phone Valentine Walters MD Primary Care Provider U Kate Martinez MD Primary Care Provider [phone] Encounter Details Date Type Department Care Team Description 02/24/2022 Hospital Supervisor Report Medical Records [address] [place] [address] Juice Major MD Social History Tobacco Use Types Packs/Day Years Used Date Smoking Tobacco: Never Smokeless Tobacco: Never Alcohol Use Standard Drinks/Week Comments No 0 (1 standard drink = 0.6 oz pur e alcohol) Sex Assigned at Date Recorded Not on file Job Start Date Occupation Industry Not on file Not on file Not on file COVID-19 Exposure Response Date Recorded In the last 10 days, have yo u been in contact with someone who was confirmed or suspected to have Coronavirus/COVID-19? Unable to assess 02/25/2022 7:49 AM EDT documented as of this encounter Plan of Treatment Not on file documented as of this encounter Visit Diagnoses Not on filedocumented in this encounter Care Teams Curator Of Collections Relationship Specialty Start Date End Date Valentine Walters MD PCP - General Internal Medicine 08/24/1807/09 Kate Phillip MD PCP - General Internal Medicine 07/22/22 documented as of this encounter
--- OUTSIDE RECORDS SUMMARY | 2024-10-20 10:29 | XMS_ITS | Encounter Summary ---
Author Organization [facility] Address [address] [place] [address] Care Team Providers Care Ditch Rider Name Role Phone Valentine Walters MD Primary Care Provider U Kate Martinez MD Primary Care Provider [phone] Reason for Referral * EXTERNAL (Routine) - Authorized/Booked Specialty Diagnoses / Procedures Referred By Contact Referred To Contact Otolaryngology / Hearing Procedures REFERRAL TO HEARING TEST Valentine Walters MD [address] [place] [id number] Referral ID Status Reason Start Date Expiration Date V isits Requested Visits Authorized [id number] Authorized/B ooked 11/22/2020 02/25/2021 1 1 Reason for Visit * Reason Onset Date Comments VNA Call 11/21/2020 Encounter Details Date Type Department Care Team Description 11/21/2020 Telephone Adult Medicine [address] [address] Valentine Walters MD [facility] Call Social History Tobacco Use Types Packs/Day Years [...] encounter Miscellaneous Notes * Telephone Encounter - Mary Ann Lindquist M.A. - 11/21/2020 4:56 PM EDT Referral pended as requested * Telephone Encounter - Marichuy Chao - 11/21/2020 3:37 PM EDT [facility]NA CALL Which [facility]NA office is calling? [facility] Full name of caller: Tiffani The caller is A nurse Is the caller at the patients home?: NO Reason for call: Tiffani from [facility] calling requesting if provider would place another hearing test for patient at [facility] Audiology. Does caller need an urgent call back? NO Was CONTACT Telephone # obtained above?: YES Fax #: documented in this encounter Plan of Treatment Not on file documented as of this encounter Visit Diagnoses Not on filedocumented in this encounter Care Teams Ditch Rider Relationship Specialty Start Date End Date Valentine Walters MD PCP - General Internal Medicine 08/24/1807/09 Kate Phillip MD PCP - General Internal Medicine 07/22/22 documented as of this encounter
--- OUTSIDE RECORDS SUMMARY | 2024-10-20 10:29 | XMS_ITS | Encounter Summary ---
Author Organization [facility] Address [address] [place] [address] Care Team Providers Care Patient Companion Name Role Phone Valentine Walters MD Primary Care Provider U Kate Martinez MD Primary Care Provider [phone] Reason for Visit * Reason Onset Date Comments LAB WORK 02/25/2022 Encounter Details Date Type Department Care Team Description 02/25/2022 Telephone General Surgery - [address] [place] [address] Riana Jordan MS,JOE,BELKYS LAB WORK Social History Tobacco Use Types Packs/Day Years [...] Recorded In the last 10 days, have ken yoon been in contact with someone who was confirmed or suspected to have Coronavirus/COVID-19? Unable to assess 02/25/2022 7:49 AM EDT documented as of this encounter Miscellaneous Notes * Telephone Encounter - Riana Jordan MS, RDN, LDN - 02/25/2022 1:49 PM EDT Please re-order bariatric labs as patient's have documented in this encounter Plan of Treatment Not on file documented as of this encounter Visit Diagnoses Not on filedocumented in this encounter Care Teams Patient Companion Relationship Specialty Start Date End Date Valentine Walters MD PCP - General Internal Medicine 08/24/1807/09 Kate Phillip MD PCP - General Internal Medicine 07/22/22 documented as of this encounter
--- OUTSIDE RECORDS SUMMARY | 2024-10-20 10:29 | XMS_ITS | Encounter Summary ---
Author Organization [employer] [facility] Address [address] [place] [address] Care Team Providers Care Manager Product Support Name Role Phone Valentine Walters MD Primary Care Provider U Kate Martinez MD Primary Care Provider [phone] Encounter Details Date Type Department Care Team Description 12/23/2020 Refill Adult Medicine [address] [address] Valentine Walters MD Social History Tobacco Use Types Packs/Day Years Used Date Smoking Tobacco: Never Smokeless Tobacco: Never Alcohol Use Standard Drinks/Week Comments No 0 (1 standard drink = 0.6 oz pur e alcohol) Sex Assigned at Date Recorded Not on file Job Start Date Occupation Industry Not on file Not on file Not on file COVID-19 Exposure Response Date Recorded In the last month, have you been in contact with someone who was confirmed or suspected to have Coronavirus / COVID-19? Unable to assess 12/26/2020 11:07 AM EDT documented as of this encounter Plan of Treatment Not on file documented as of this encounter Visit Diagnoses Not on filedocumented in this encounter Care Teams Manager Product Support Relationship Specialty Start Date End Date Valentine Walters MD PCP - General Internal Medicine 08/24/1807/09 Kate Phillip MD PCP - General Internal Medicine 07/22/22 documented as of this encounter
--- OUTSIDE RECORDS SUMMARY | 2024-10-20 10:29 | XMS_ITS | Encounter Summary ---
Author Organization [facility] Address [address] [place] [address] Care Team Providers Care Nutritional Assistant Name Role Phone Kate Phillip MD Primary Care Provider [phone] Encounter Details Date Type Department Care Team Description 03/23/2023 Refill Internal Medicine - [place] [address] [facility], [address] [place] [address] Kate Phillip MD [address] [place] [phone] Social History Tobacco Use Types Packs/Day Years [...] was confirmed or suspected to have Coronavirus/COVID-19? No / Unsure 03/04/2023 9:11 AM EDT documented as of this encounter Plan of Treatment Not on file documented as of this encounter Visit Diagnoses Not on filedocumented in this encounter Care Teams Nutritional Assistant Relationship Specialty Start Date End Date Kate Phillip MD PCP - General Internal Medicine 07/22/22 documented as of this encounter
--- OUTSIDE RECORDS SUMMARY | 2024-10-20 10:29 | XMS_ITS | Encounter Summary ---
Author Organization [facility] Address [address] [place] [address] Care Team Providers Care Legal Referee Name Role Phone Valentine Walters MD Primary Care Provider U Kate Martinez MD Primary Care Provider [phone] Reason for Visit * Reason Onset Date Comments TEST RESULTS 03/06/2022 Encounter Details Date Type Department Care Team Description 03/06/2022 Telephone Adult Medicine [address] [address] Valentine Walters MD TEST RESULTS Social History Tobacco Use Types Packs/Day Years [...] suspected to have Coronavirus/COVID-19? No / Unsure 03/04/2022 9:08 AM EDT documented as of this encounter Miscellaneous Notes * Telephone Encounter - Alban Garcia MD - 03/06/2022 1:35 PM EDT I don't know but she has abnormal tests and will need medication for H pylori. * Telephone Encounter - Anabell Mart M.A. - 03/06/2022 10:29 AM EDT I seen nothing regarding test results, please advise * Telephone Encounter - Riana Jordan MS,RDN,LDN - 03/06/2022 10:24 AM EDT Patient is not sure who called her back regarding test results - please advise. * Telephone Encounter - Martina Hardy M.A. - 03/06/2022 9:25 AM EDT Forward to general surgery * Telephone Encounter - Luca Clemons - 03/06/2022 9:20 AM EDT Patient's daughter, Ainsley stated she is returning a call regarding the patient's test results. She doesn't know who spoke w/but would like call back documented in this encounter Plan of Treatment Not on file documented as of this encounter Visit Diagnoses Not on filedocumented in this encounter Care Teams Legal Referee Relationship Specialty Start Date End Date Valentine Walters MD PCP - General Internal Medicine 08/24/1807/09 Kate Phillip MD PCP - General Internal Medicine 07/22/22 documented as of this encounter
--- OUTSIDE RECORDS SUMMARY | 2024-10-20 10:29 | XMS_ITS | Encounter Summary ---
Author Organization [employer] [facility] Address [address] [place] [address] Care Team Providers Care Outboard Motorboat Operator Name Role Phone Valentine Walters MD Primary Care Provider U Kate Martinez MD Primary Care Provider [phone] Encounter Details Date Type Department Care Team Description 04/30/2022 Orders Only Medical Records [address] [place] [address] Abstract, Provider Screening mammogram for breast cancer Social History Tobacco Use Types Packs/Day Years Used Date Smoking Tobacco: Never Smokeless Tobacco: Never Alcohol Use Standard Drinks/Week Comments No 0 (1 standard drink = 0.6 oz pur e alcohol) Sex Assigned at Date Recorded Not on file Job Start Date Occupation Industry Not on file Not on file Not on file documented as of this encounter Plan of Treatment Not on file documented as of this encounter Procedures Procedure Name Priority Date/Time Associated Diagnosis Comments SCREENING MAMMOGRAPHY BI 2-VIEW BREAST INC CAD Routine 04/29/2022 Screening mammogram for breast cancer documented in this encounter Results * SCREENING MAMMOGRAPHY BI 2-VIEW BREAST INC CAD (04/29/2022) Valentine Adames MD MAMMOGRAPHY documented in this encounter Visit Diagnoses Diagnosis Screening mammogram for breast cancer documented in this encounter Care Teams Outboard Motorboat Operator Relationship Specialty Start Date End Date Valentine Walters MD PCP - General Internal Medicine 08/24/1807/09 Kate Phillip MD PCP - General Internal Medicine 07/22/22 documented as of this encounter
--- OUTSIDE RECORDS SUMMARY | 2024-10-20 10:29 | XMS_ITS | Encounter Summary ---
Author Organization [employer] [facility] Address [address] [place] [address] Care Team Providers Care Geothermal Operating Engineer Name Role Phone Kate Phillip MD Primary Care Provider [phone] Reason for Visit * Reason Onset Date Comments refill request 07/23/2023 Encounter Details Date Type Department Care Team Description 07/23/2023 Refill Internal Medicine - [address], [address] [place] [address] Kate Phillip MD [address] [place] [phone] refill request Social History Tobacco Use Types Packs/Day Years [...] encounter Miscellaneous Notes * Telephone Encounter - Kathrin Melo - 07/23/2023 3:13 PM EST Last filled 07/12/23 documented in this encounter Plan of Treatment Not on file documented as of this encounter Visit Diagnoses Diagnosis Chronic nonintractable headache, unspecified headache type documented in this encounter Care Teams Geothermal Operating Engineer Relationship Specialty Start Date End Date Kate Phillip MD PCP - General Internal Medicine 07/22/22 documented as of this encounter
--- OUTSIDE RECORDS SUMMARY | 2024-10-20 10:29 | XMS_ITS | Encounter Summary ---
Author Organization [facility] Address [address] [place] [address] Care Team Providers Care Casting Machine Set Up Operator Name Role Phone Valentine Walters MD Primary Care Provider U Kate Martinez MD Primary Care Provider [phone] Reason for Visit * Reason Onset Date Comments medication problems 12/27/2020 Encounter Details Date Type Department Care Team Description 12/27/2020 Telephone Pulmonology - [place] [address] [facility] [place] [facility] [address] [place] [address] Chilango Ramirez MD [address] [facility] [place] [facility] [address] [place] [address] medication problems Social History Tobacco Use Types Packs/Day Years [...] or suspected to have Coronavirus / COVID-19? No / Unsure 12/30/2020 9:24 AM EDT documented as of this encounter Miscellaneous Notes * Telephone Encounter - Ivon Lombardi M.A. - 12/27/2020 3:02 PM EDT Left a voicemal for patient to call insurance for an alternative medication * Telephone Encounter - Kaelyn Kebede - 12/27/2020 2:35 PM EDT Who is calling? A pharmacist: Pharmacy: [facility] Pharmacist Name: N/A Pharmacy Name of the medication Dariel Clark What is the specific problem or interaction? Rejected. Not on Formulary If the patient is having a problem with taking the med - how long has the problem been going on? N/A documented in this encounter Plan of Treatment Not on file documented as of this encounter Visit Diagnoses Not on filedocumented in this encounter Care Teams Casting Machine Set Up Operator Relationship Specialty Start Date End Date Valentine Walters MD PCP - General Internal Medicine 08/24/1807/09 Kate Phillip MD PCP - General Internal Medicine 07/22/22 documented as of this encounter
--- OUTSIDE RECORDS SUMMARY | 2024-10-20 10:29 | XMS_ITS | Encounter Summary ---
Author Organization [employer] [facility] Address [address] [place] [address] Care Team Providers Care Patent Agent Name Role Phone Valentine Walters MD Primary Care Provider U Kate Martinez MD Primary Care Provider [phone] Encounter Details Date Type Department Care Team Description 01/14/2021 Orders Only Medical Records [address] [place] [id number] Abstract, Provider Social History Tobacco Use Types Packs/Day Years [...] have Coronavirus / COVID-19? No / Unsure 01/09/2021 12:17 PM EDT documented as of this encounter Plan of Treatment Not on file documented as of this encounter Visit Diagnoses Not on filedocumented in this encounter Care Teams Patent Agent Relationship Specialty Start Date End Date Valentine Walters MD PCP - General Internal Medicine 08/24/1807/09 Kate Phillip MD PCP - General Internal Medicine 07/22/22 documented as of this encounter
--- OUTSIDE RECORDS SUMMARY | 2024-10-20 10:30 | XMS_ITS | Encounter Summary ---
Author Organization [employer] [facility] Address [address] [place] [address] Care Team Providers Care Replenishment Associate Name Role Phone Kate Phillip MD Primary Care Provider [phone] Encounter Details Date Type Department Care Team Description 10/27/2023 Orders Only Medical Records [address] [place] [address] Martina Mcgowan OD Social History Tobacco Use Types Packs/Day Years [...] Procedure Name Priority Date/Time Associated Diagnosis Comments OUTSIDE EYE EXAM Routine 10/26/2023 documented in this encounter Results * OUTSIDE EYE EXAM (10/26/2023) Martina Mcgowan OD PROCEDURES documented in this encounter Visit Diagnoses Not on filedocumented in this encounter Care Teams Replenishment Associate Relationship Specialty Start Date End Date Kate Phillip MD PCP - General Internal Medicine 07/22/22 documented as of this encounter
--- OUTSIDE RECORDS SUMMARY | 2024-10-20 10:30 | XMS_ITS | Encounter Summary ---
Author Organization [employer] [facility] Address [address] [place] [address] Care Team Providers Care Quality Assurance Director Name Role Phone Valentine Walters MD Primary Care Provider [facility] MD Primary Care Provider [phone] Encounter Details Date Type Department Care Team Description 02/10/2019 Orders Only Medical Records [address] [place] [address] Abstract, Provider Social History Tobacco Use Types [...] on filedocumented in this encounter Care Teams Quality Assurance Director Relationship Specialty Start Date End Date Valentine Walters MD PCP - General Internal Medicine 08/24/1807/09 Kate Phillip MD PCP - General Internal Medicine 07/22/22 documented as of this encounter
--- OUTSIDE RECORDS SUMMARY | 2024-10-20 10:30 | XMS_ITS | Encounter Summary ---
Author Organization [employer] [facility] Address [address] [place] [address] Care Team Providers Care Scoop Filler Name Role Phone Valentine Walters MD Primary Care Provider U Kate Martinez MD Primary Care Provider [phone] Encounter Details Date Type Department Care Team Description 04/02/2021 Telephone Gastroenterology - [place] [address] [facility] [address] [place] [phone] Lakeisha Jacob, ArmandoS Social History Tobacco Use Types Packs/Day Years [...] have Coronavirus / COVID-19? No / Unsure 04/04/2021 8:03 AM EDT documented as of this encounter Plan of Treatment Not on file documented as of this encounter Visit Diagnoses Not on filedocumented in this encounter Care Teams Scoop Filler Relationship Specialty Start Date End Date Valentine Walters MD PCP - General Internal Medicine 08/24/1807/09 Kate Phillip MD PCP - General Internal Medicine 07/22/22 documented as of this encounter
--- OUTSIDE RECORDS SUMMARY | 2024-10-20 10:30 | XMS_ITS | Encounter Summary ---
Author Organization [employer] [facility] Address [address] [place] [address] Care Team Providers Care Residence Leasing Agent Name Role Phone Kate Phillip MD Primary Care Provider [phone] Encounter Details Date Type Department Care Team Description 04/06/2024 Telephone Internal Medicine - [place] [address] [facility], [address] [place] [address] Kate Phillip MD [address] [place] [phone] Social History Tobacco Use Types Packs/Day [...] encounter Miscellaneous Notes * Telephone Encounter - Kate Phillip MD - 04/06/2024 10:20 AM EDT Pt is looking for cookin utensils for healthy cooking documented in this encounter Plan of Treatment Not on file documented as of this encounter Visit Diagnoses Not on filedocumented in this encounter Care Teams Residence Leasing Agent Relationship Specialty Start Date End Date Kate Phillip MD PCP - General Internal Medicine 07/22/22 documented as of this encounter
--- OUTSIDE RECORDS SUMMARY | 2024-10-20 10:30 | XMS_ITS | Encounter Summary ---
Author Organization [facility] Address [address] [place] [address] Care Team Providers Care String Top Sealer Name Role Phone Valentine Walters MD Primary Care Provider U Kate Martinez MD Primary Care Provider [phone] Reason for Visit * Reason Onset Date Comments Faxed Order 09/20/2018 [facility] Encounter Details Date Type Department Care Team Description 09/20/2018 Telephone Adult Medicine [address] [address] Valentine Walters MD [place]ed [place] Social History Tobacco Use Types Packs/Day Years [...] encounter Miscellaneous Notes * Telephone Encounter - Sara Kennedy - 09/20/2018 2:20 PM EST [facility] interofficed care plans for to review, sign, date and interoffice back in enclosed envelope Placed in 's bin documented in this encounter Plan of Treatment Not on file documented as of this encounter Visit Diagnoses Not on filedocumented in this encounter Care Teams String Top Sealer Relationship Specialty Start Date End Date Valentine Walters MD PCP - General Internal Medicine 08/24/1807/09 Kate Phillip MD PCP - General Internal Medicine 07/22/22 documented as of this encounter
--- OUTSIDE RECORDS SUMMARY | 2024-10-20 10:30 | XMS_ITS | Encounter Summary ---
Author Organization [facility] Address [address] [place] [address] Care Team Providers Care Multifocal Button Grinder Name Role Phone Valentine Walters MD Primary [facility] Primary Care Provider [phone] Encounter Details Date Type Department Care Team Description 10/13/2018 Release of Information Medical Records [address] [place] [address] Abstract, Provider Social History Tobacco Use Types [...] on filedocumented in this encounter Care Teams Multifocal Button Grinder Relationship Specialty Start Date End Date Valentine Walters MD PCP - General Internal Medicine 08/24/1807/09 Kate Phillip MD PCP - General Internal Medicine 07/22/22 documented as of this encounter
--- OUTSIDE RECORDS SUMMARY | 2024-10-20 10:30 | XMS_ITS | Encounter Summary ---
Author Organization [facility] Address [address] [place] [address] Care Team Providers Care Lens Shaper Grinder Name Role Phone Valentine Walters MD Primary Care Provider Kate Martinez MD Primary Care Provider [phone] Reason for Visit * Reason Onset Date Comments APPOINTMENT 10/07/2019 Encounter Details Date Type Department Care Team Description 10/07/2019 Telephone Adult Medicine A - [address] [address] Stephanie Delgado FNP [address] [place] [address] APPOINTMENT Social History Tobacco Use Types Packs/Day Years [...] encounter Miscellaneous Notes * Telephone Encounter - MARLEEN Allen - 10/07/2019 7:39 AM EST Please schedule for sleep apnea FU. All sleep study results are back. documented in this encounter Plan of Treatment Not on file documented as of this encounter Visit Diagnoses Not on filedocumented in this encounter Care Teams Lens Shaper Grinder Relationship Specialty Start Date End Date Valentine Walters MD PCP - General Internal Medicine 08/24/1807/09 Kate Phillip MD PCP - General Internal Medicine 07/22/22 documented as of this encounter
--- OUTSIDE RECORDS SUMMARY | 2024-10-20 10:30 | XMS_ITS | Encounter Summary ---
Author Organization [facility] Address [address] [place] [address] Care Team Providers Care Bending Machine Set Up Operator Name Role Phone Valentine Walters MD Primary Care Provider U Kate Martinez MD Primary Care Provider [phone] Reason for Visit * Reason Onset Date Comments [facility]-up [facility] 10/23/2021 Follow-up 10/23/2021 last/Riana Encounter Details Date Type Department Care Team Description 10/23/2021 Telephone General Surgery - [address] [place] [address] Riana Jordan, MS,RDN,LDN Follow[facility]up [facility]; Follow-up (w/Riana) Social History Tobacco Use Types Packs/Day Years [...] encounter Miscellaneous Notes * Telephone Encounter - Erin Shea - 10/24/2021 8:01 AM EDT Called patient daughter to schedule follow-up. Left message to return call. * Telephone Encounter - Erin Shea - 10/24/2021 7:58 AM EDT Ok, great! I'll contact her daughter and get her scheduled. Thank you! * Telephone Encounter - Riana Nikki, ,RDN,ANDRIYN - 10/23/2021 3:31 PM EDT She should be fine to have a 30-minute follow-up with me. I usually say if it's been over a year she might need to restart. Thanks! * Telephone Encounter - Erin Shea - 10/23/2021 3:16 PM EDT Patient was last seen by your on 06-02-21 for follow-up. Per your last note she was to follow-up [id number]. It is now 5 months later. Should I schedule follow-up or is she in that pool where she'd needto restart program due to gap in treatment? Please advise, thanks in advance. documented in this encounter Plan of Treatment Not on file documented as of this encounter Visit Diagnoses Not on filedocumented in this encounter Care Teams Bending Machine Set Up Operator Relationship Specialty Start Date End Date Valentine Walters MD PCP - General Internal Medicine 08/24/1807/09 Kate Phillip MD PCP - General Internal Medicine 07/22/22 documented as of this encounter
--- OUTSIDE RECORDS SUMMARY | 2024-10-20 10:30 | XMS_ITS | Clinical Summary ---
Author Organization [facility] Address [address] [place] [address] Phone Care Team Providers Care Skein Bleacher Name Role Phone Kate Phillip MD Primary Care Provider [phone] Allergies No known active allergies Medications Autolet lancing device 1 Device by Does not apply route Once. DX; E11.9 05/16/20 24 Active blood pressure monitor kit blood pressure monitor, Diagnosis ICD 10 401.1 Hypertension, See Instructions, # 1 each, Refills 0, Tot. Refills 0, Maintenance, check BP at home daily, 10/07/17 9:29:51, Compound 10/08/19 18 Active lancets lancets Test blood sugars 3 times a day Dx: E11.9 04/14/20 23 Active budesonide/for moterol fumarate (SYMBICORT INHL) 2, puffs, Inhalation, 2 times a day, # 1 each, Refills 11, Tot. Refills 11, Maintenance, 05/27/17 13:23:05, Route to Pharmacy Electronically , [id number], [facility]/pharmacy #[id number] 05/27/20 17 Active acetaminophen (TYLENOL) 500 mg tablet Take 1 tablet (500 mg total) by mouth every 6 (six) hours if needed. 02/26/20 23 Active albuterol HFA (ProAir HFA) 90 mcg/actuation inhaler INHALE 2 PUFFS INTO THE LUNGS EVERY 4 HOURS NEEDED FOR OTHER (COUGH, WHEEZING, SHORTNESS OF BREATH). 07/06/20 22 Active amitriptyline (ELAVIL) 100 mg tablet 1.5 tablet = 150 mg, By Mouth, Daily at bedtime, # 45 tablet, 5 Refills, Maintenance, 05/27/17 13:21:53, Tablet 05/27/20 17 Active ARIPiprazole (ABILIFY) 2 mg tablet 11/30/19 24 Active buPROPion SR (WELLBUTRIN SR) 150 mg 12 hr tablet Take 1 tablet (150 mg total) by mouth 2 (two) times a day. 03/02/20 23 Active clobetasoL (TEMOVATE) 0.05 % cream 07/10/20 21 Active docusate sodium (Colace) 100 mg capsule 100 mg, 1, capsule, By Mouth, 2 times a day, PRN, # 60 capsule, Refills 3, Tot. Refills 3, Maintenance, for constipation, 05/27/17 11:37:49, Route to Pharmacy Electronically , [id number], [facility]/pharmacy #[id number] 05/27/20 17 Active DULoxetine (CYMBALTA) [address] capsule 02/23/20 24 Active famotidine (PEPCID) 10 mg tablet Take 1 tablet (10 mg total) by mouth 2 (two) times a day. 03/08/20 24 Active fluticasone-um eclidinium-kassandra anterol (Trelegy Ellipta) 200-62.5-25 mcg inhaler Inhale 1 Puff into the lungs daily. 12/06/19 22 Active gabapentin (NEURONTIN) 300 mg capsule See Instructions, 3 capsules By Mouth in AM and PM and 4 capsules at bedtime. Label in Burundian. 10 capsules/day, # 300 capsule, Refills 5, Tot. Refills 5, Maintenance, 07/13/18 17:38:14 EST, Instructions Replace Required Details, Route to Pharmacy El... 07/13/20 18 Active hydrOXYzine pamoate (VISTARIL) 25 mg capsule 05/31/20 24 Active lamoTRIgine (LaMICtal) 25 mg tablet 07/04/20 13 Active meloxicam (MOBIC) 7.5 mg tablet 1 tablet = 7.5 mg, By Mouth, Daily, take with food. Label in [place]ian., # 30 tablet, 1 Refills, Maintenance, 01/18/18 14:39:56 EDT, Tablet 01/19/20 18 Active methylPREDNISo lone (MEDROL) 4 mg tablet 02/09/20 24 Active montelukast (SINGULAIR) 10 mg tablet Take 1 tablet (10 mg total) by mouth 1 (one) time each day. 12/26/19 23 Active Paxlovid 300 mg (150 mg x 2)-100 mg tablet therapy pack 08/25/19 24 Active omeprazole (PriLOSEC) [address] capsule Take 1 capsule (20 mg total) by mouth 2 (two) times a day. 02/17/20 24 Active oxyBUTYnin XL (DITROPAN-XL) 10 mg 24 hr tablet 06/20/20 24 Active predniSONE (DELTASONE) 20 mg tablet 2 tab for 3 days and then 1 tab daily 07/23/20 23 Active QUEtiapine (SeroqueL) 100 mg tablet 2 tablet = 200 mg, By Mouth, Daily, # 270 tablet, 0 Refills, Maintenance, Tablet 08/29/19 11 Active ramelteon (Rozerem) 8 mg tablet 04/12/20 23 Active roflumilast (DALIRESP) 500 mcg tablet Take by mouth. Acti ve sodium chloride (AYR) 0.65 % nasal drops Administer into affected nostril(s). 09/01/19 20 Active topiramate (TOPAMAX) 50 mg tablet 1 tablet = 50 mg, By Mouth, 2 times a day, Label in [place]ian., # 60 tablet, 5 Refills, Maintenance, 01/18/18 14:49:34 EDT, Tablet 01/19/20 18 Active triamcinolone (KENALOG) 0.025 % cream Apply a small amount to affected area twice daily X 2 wks 03/01/20 19 Active triamcinolone (NASACORT) 55 mcg nasal inhaler 55 mcg by Nasal route daily. 12/27/19 21 Active Incruse Ellipta 62.5 mcg/actuation inhalation 06/26/20 24 Active Pure Comfort Safety Lancets 30 gauge misc USE THREE TIMES DAILY 100 each 1 07/30/20 24 Active metFORMIN XR (GLUCOPHAGE-XR ) 500 mg 24 hr tablet TAKE 1 TABLET BY MOUTH DAILY (WITH BREAKFAST). 90 tablet 2 08/01/20 24 Active cholecalcifero l (VITAMIN D-3) 50 mcg (2,000 unit) capsule TAKE 1 CAPSULE BY MOUTH DAILY. 30 capsule 2 08/21/19 25 Active amLODIPine (NORVASC) 5 mg tablet Take 1 tablet (5 mg total) by mouth 1 (one) time each day. 30 each 5 08/21/19 25 025 Active glucose blood test strip Use as instructed 100 each 08/21/19 25 Active loratadine (CLARITIN) 10 mg tablet Take 1 tablet (10 mg total) by mouth 1 (one) time each day. 30 tablet 3 08/21/19 25 Active ibuprofen (ADVIL,MOTRIN) 800 mg tablet Take 1 tablet (800 mg total) by mouth every 8 (eight) hours if needed for mild pain. 30 tablet 1 08/23/19 25 Active enalapril (VASOTEC) 20 mg tablet Take 2 tablets (40 mg total) by mouth 1 (one) time each day. 60 tablet 3 09/18/19 25 Active dulaglutide (Trulicity) 3 mg/0.5 mL pen injector injection Inject 0.5 mL (3 mg total) under the skin every 7 (seven) days. 2 mL 3 09/18/19 25 Active ferrous sulfate 324 mg (65 mg elemental iron) EC tablet TAKE 1 TABLET BY MOUTH 2 TIMES DAILY. 60 tablet 1 10/02/19 25 Active ferrous sulfate 324 mg (65 mg elemental iron) EC tablet Take 1 tablet (324 mg total) by mouth 2 (two) times a day. 60 tablet 2 07/20/20 24 025 Discontinued Active Problems Problem Noted Date Diagnosed Date Urinary incontinence 04/06/2024 Migraine without status migrainosus, not intract able 04/14/2023 Chronic pain of both knees 04/14/2023 Type 2 diabetes mellitus 03/06/2022 COVID 12/29/2021 Lab test negative for COVID-19 virus 01/09/2021 Class 3 severe obesity due t o excess calories with body mass index (BMI) of 60.0 to 69.9 in adult 02/22/2020 Allergic rhinitis due to pollen 12/01/2018 Moderate persistent asthma without complication 12/01/2018 SHAJI on CPAP 12/01/2018 Overview (07/28/2024): [facility] Home Sleep Apnea Test: Date 10/05/2019; Wt 300#; BMI 59; SEBASTIAN 39, AI 3; HI 36; Unclassified apneas 0; Obstructive apneas 16; Central apneas 0; Mixed apneas 0; hypopneas 27; average oxygen saturation 92% (lowest 65% with saturations <88% for 5% or more of study) [facility] Polysomnogram: Date 01/09/2009; Wt 240#; BMI 47; SE 94%; SM 95%; REM 17%; AHI 10, REM AHI 25, Central apneas 0; Obstructive apneas 0; Mixed apneas 0; hypopneas 73; average oxygen saturation 97% (lowest 89%); PLMs 0. [facility] CPAP Polysomnogram: Date 02/14/2009; Wt 240#; BMI 47; SE 99%; SM 99%; REM 10%; CPAP @ 6 -> AHI 0.3; average oxygen saturation 93%. - Obstructive Sleep Apnea - severe; mostly hypopneas and obstructive apneas; with sleep related hypoventilation by 2019 home sleep apnea test. Post-nasal drainage 12/01/2018 Overlap syndrome 12/01/2018 Morbid obesity 11/29/2018 Anxiety 08/24/2018 Asthma 08/24/2018 Bipolar disorder 08/24/2018 Overview (07/28/2024): Followed by Dr Nahum Collins at [facility] Depression 08/24/2018 HTN (hypertension) 08/24/2018 Encounters Date Type Department Care Team Description 09/18/2024 3:30 PM EST Office Visit Internal Medicine - [address] [phone] Kate Phillip MD Primary hypertension (Primary Dx); SHAJI on CPAP; Type 2 diabetes mellitus without complication, without long-term current use of insulin (CMS/HCC); Moderate persistent asthma without complication; Morbid obesity (CMS/HCC) 08/21/2024 2:45 PM EST Office Visit Internal Medicine [address] [address] Kate Phillip MD Primary hypertension (Primary Dx); Class 3 severe obesity due to excess calories with serious comorbidity and body mass index (BMI) of 60.0 to 69.9 in adult (CMS/HCC); SHAJI on CPAP; Depression, unspecified depression type; Mild intermittent asthma without complication 08/10/2024 Telephone Internal Medicine [facility] [address] [phone] Kate Phillip MD Hospital Follow-up 07/27/2024 Telephone Internal Medicine - [place] [address] [phone] Kate Phillip MD Hypertension; Hospital Follow-up 07/26/2024 8:32 PM EST - 07/26/2024 9:08 PM EST [facility] Emergency [address] [place] [address] Riaz Taylor DO Chronic hypertension (Primary Dx) Discharge Disposition: Home or Self Care from Last 3 Months Immunizations Name Administration Dates Next Due Hepatitis A-Hepatitis B Adult (Twinrix) 18yo and older 10/11/2019 Influenza, Unspecified 07/28/2021 Moderna SARS-CoV-2 COVID-19, mRNA, LNP-S, preservative free 10/25/2020 Pneumococcal conjugate 13 va lent (Prevnar 13, PCV13) 2mo and older 12/01/2018 Pneumococcal polysaccharide 23 valent (Pneumovax 23) 2yo and older 10/11/2019 Tdap Tetanus diptheria acell ular pertussis (Boostrix; Adacel) 7yo and older 10/11/2019 Typhoid VICPS (Typhim Vi) 2yo and older 10/11/19 20 Surgical History Surgery Date Site/Laterality Comments OTHER SURGICAL HISTORY PROCEDURE: DENIES PREVIOUS SURGERY Medical History Medical History Date Comments HTN (hypertension) 08/24/2018 DX:HTN (hyper tension) Asthma 08/24/2018 DX:Asthma Bipolar disorder (CMS/HCC) 08/24/2018 DX:Bi polar disorder (HCC) Anxiety 08/24/2018 DX:Anxiety Depression 08/24/2018 DX:Depression Type 2 diabetes mellitus (CMS/HCC) 03/06/2022 DX:Type 2 diabetes mellitus (HCC) Family History Medical History Relation Name Comments Diabetes Father Diabetes Paternal Grandmother Diabetes Uncle Breast cancer Neg Hx Relation Name Status Comments Father Paternal Grandmother Uncle Social History Tobacco Use Types Packs/Day Years Used Date Smoking Tobacco: Never Smokeless Tobacco: Never Tobacco Cessation:Counseling Given: Not Answered Alcohol Use Standard Drinks/Week Comments No 0 (1 standard drink = 0.6 oz pur e alcohol) Comments Unknown Sex and Gender Information Value Date Recorded Sex Assigned at Female 07/26/2024 8:44 PM EST Legal Sex Female 4:34 AM EST Gender Identity Female 07/26/2024 8:44 PM EST Sexual Orientation Straight 07/26/2024 8: 44 PM EST Obstetrics History Last Filed Vital Signs Vital Sign Reading Time Taken Comments Blood Pressure 132/76 09/18/2024 3:24 PM EST Pulse 85 09/18/2024 3:24 PM EST Temperature 36.5 ??C (97.7 ??F) 09/18/2024 3:24 PM ES T Respiratory Rate 18 07/26/2024 8:54 PM EST Oxygen Saturation 97% 09/18/2024 3:24 PM EST Inhaled Oxygen Concentration - - Weight 146 kg (321 lb) 09/18/2024 3:24 PM EST Height 154.9 cm (5' 1 ) 07/26/2024 1:53 PM EST Body Mass Index 60.65 07/26/2024 1:53 PM EST Plan of Treatment Upcoming Encounters Date Type Department Care Team (Late st Contact Info) Description 10/30/2024 11:00 AM EDT Office Visit Internal Medicine - [place] 175 [facility] [address] [place] [phone] Kate Phillip MD 175 [facility] [address] [place] [address] 12/14/2024 4:00 PM EDT Office Visit Bariatric Surgery - [place] 175 [facility] [address] [place] [phone] Alban Garcia MD 175 [facility] [address] [place] [address] 01/31/2025 2:45 PM EDT Office Visit Internal Medicine - [place] 175 [facility] [address] [place] [address] Kate Phillip MD 175 [facility] [address] [place] [address] Health Maintenance Due Date Last Done Comments Diabetes: Annual Foot Exam 11/16/1987 Cervical Cancer Screening: Pap Smear 1998 Hepatitis B Vaccines (2 of 3 - Hep B Twinrix 3-dose series) 11/08/2019 10/11/2019 Colorectal Cancer Screening: Colonoscopy 07/18/2022 Depression Screening 07/18/2022 HIV Screening 07/18/2022 Hepatitis C Screening 07/18/2022 Social Influencers of Health Screening 07/18/2022 Diabetes: Annual Urine Albumin-Creatinine Ratio (uACR) 07/25/2022 COVID-19 Vaccine ( season) 2024 12/30/2020, 12/02/2020, 10/25/2020 Influenza Vaccine (#1) 2024 07/12/2022, 2020 Breast Cancer Screening 04/30/2024 04/30/20, 01/17/2020, 06/30/2019, Additional history exists Diabetes: Blood Sugar Control Test (HGBA1C) 10/06/2024 04/06/2024, 04/06/2024 Diabetes: Annual Retina Eye Exam 10/25/2024 10/26/2023 Diabetes: Annual GFR (Glomerular Filtration Rate) 07/26/2025 07/26/2024, 04/06/2024, 04/06/2024 Hypertension/CHF/CAD Annual BMP Blood Test 07/26/2025 07/26/2024, 04/06/2024, 04/06/2024 Pneumococcal Vaccine: Pediatrics (0 to 5 Years) and At-Risk Patients (6 to 64 Years) (3 of 3 - PCV20 or PCV21) 11/16/2027 10/11/2019, 12/01/2018 Cholesterol Screening (Lipid Panel) 06/15/2028 06/15/2023 DTaP,Tdap,and Td Vaccines (2 - Td or Tdap) 10/10/2029 10/11/2019 Hepatitis A Vaccines Aged Out 10/11/2019 No long er eligible based on patient's age to complete this topic HIB Vaccines Aged Out No longer eligi ble based on patient's age to complete this topic HPV Vaccines Aged Out No longer eligi ble based on patient's age to complete this topic IPV Vaccines Aged Out No longer eligi ble based on patient's age to complete this topic MMR Vaccines Aged Out No longer eligi ble based on patient's age to complete this topic Meningococcal ACWY Vaccine Aged Out N o longer eligible based on patient's age to complete this topic Meningococcal B Vacine Aged Out No lo nger eligible based on patient's age to complete this topic RSV Immunization Patients Under 20 months Aged Out No longer eligible based on patient's age to complete this topic Varicella Vaccines Aged Out No longer eligible based on patient's age to complete this topic Procedures Procedure Name Priority Date/Time Associated Diagnosis Comments ECG 12-LEAD STAT 07/26/2024 2:38 PM EST CBC WITH AUTO DIFFERENTIAL STAT 07/26/2024 2:25 PM EST MAGNESIUM STAT 07/26/2024 2:25 PM EST BASIC METABOLIC PANEL STAT 07/26/2024 2:25 PM EST CBC AND DIFFERENTIAL STAT 07/26/2024 2:25 PM EST ECG OUTSIDE 07/26/2024 ECG ANNOTATED 07/26/2024 HEMOGLOBIN A1C Routine 04/06/2024 HM DIABETES EYE EXAM Routine 10/26/2023 LIPID PANEL Routine 06/15/2023 STEPHANIA SCREENING DIGITAL Routine 04/30/2022 8:33 AM EDT Encounter for screening mammogram for malignant neoplasm of breast from Last 3 Months or Most Recently Relevant to Health Maintenance Results * ECG 12 lead (07/26/2024 2:38 PM EST) Ventricular Rate ECG 81 BPM GEMUSE Atrial Rate 81 BPM GEMUSE P-R Interval 138 ms GEMUSE QRS Duration 76 ms GEMUSE Q-T Interval 394 ms GEMUSE QTc 457 ms GEMUSE P Wave [place] 51 degrees GEMUSE R [place] -2 degrees GEMUSE T [place] 20 degrees GEMUSE ECG Interpretation Normal sinus rhythm Minimal voltage criteria for LVH, may be normal variant No previous ECGs available Confirmed by ISSAC RILEY ([id number]) on 07/27/2024 4:42:28 AM GEMUSE 07/26/2024 2:38 PM EST 07/27/2024 4:42 AM EST us Axel Patel DO ECG ORDERABLES Final Result GEMUSE * (ABNORMAL) CBC auto differential (07/26/2024 2:25 PM EST) WBC 5.6 4.8 - 10.8 K/mcL LAB HEMETOLOGY METHOD 07/26/2024 2:47 PM [facility] RBC 4.30 3.80 - 4.80 M/mcL LAB HEMETOLOGY METHOD 07/26/2024 2:47 PM [facility] Hemoglobin 11.8 11.5 - 16.0 g/dL LAB HEMETOLOGY METHOD 07/26/2024 2:47 PM [facility] Hematocrit 36.6 35.0 - 47.0 % LAB HEMETOLOGY METHOD 07/26/2024 2:47 PM [facility] MCV 86.1 79.0 - 98.0 FL LAB HEMETOLOGY METHOD 07/26/2024 2:47 PM [facility] MCH 27.8 27.0 - 32.0 pcg LAB HEMETOLOGY METHOD 07/26/2024 2:47 PM [facility] MCHC 32.2 32.0 - 37.0 g/dL LAB HEMETOLOGY METHOD 07/26/2024 2:47 PM [facility] RDW 13.9 11.0 - 15.0 % LAB HEMETOLOGY METHOD 07/26/2024 2:47 PM [facility] Platelets 353 130 - 400 K/mcL LAB HEMETOLOGY METHOD 07/26/2024 2:47 PM [facility] MPV 10.0 7.0 - 11.0 FL LAB HEMETOLOGY METHOD 07/26/2024 2:47 PM [facility] NRBC 0.0 <1.0 % LAB HEMETOLOGY METHOD 07/26/2024 2:47 PM [facility] NRBC Absolute 0.00 <0.10 K/mcL LAB HEMETOLOGY METHOD 07/26/2024 2:47 PM [facility] Neutrophils Relative 48.2 % LAB HEMETOLOGY METHOD 07/26/2024 2:47 PM [facility] Lymphocytes Relative 36.3 % LAB HEMETOLOGY METHOD 07/26/2024 2:47 PM [facility] Monocytes Relative 8.5 % LAB HEMETOLOGY METHOD 07/26/2024 2:47 PM [facility] Eosinophils Relative 5.2 % LAB HEMETOLOGY METHOD 07/26/2024 2:47 PM [facility] Basophils Relative 1.1 % LAB HEMETOLOGY METHOD 07/26/2024 2:47 PM [facility] Immature Granulocytes Relative 0.7 % LAB HEMETOLOGY METHOD 07/26/2024 2:47 PM [facility] Neutrophils Absolute 2.71 1.50 - 7.00 K/mcL LAB HEMETOLOGY METHOD 07/26/2024 2:47 PM [facility] Lymphocytes Absolute 2.04 1.00 - 5.00 K/mcL LAB HEMETOLOGY METHOD 07/26/2024 2:47 PM [facility] Monocytes Absolute 0.48 0.20 - 1.00 K/mcL LAB HEMETOLOGY METHOD 07/26/2024 2:47 PM EST [facility] Eosinophils Absolute 0.29 0.00 - 0.50 K/mcL LAB HEMETOLOGY METHOD 07/26/2024 2:47 PM EST [facility] Basophils Absolute 0.06 0.00 - 0.20 K/mcL LAB HEMETOLOGY METHOD 07/26/2024 2:47 PM EST [facility] Immature Granulocytes Absolute 0.04(H) 0.00 - 0.03 K/[facility] LAB HEMETOLOGY METHOD 07/26/2024 2:47 PM EST [facility] Blood Venous blood specimen / Unknown Venipuncture / Unknown 07/26/2024 2:25 PM EST 07/26/2024 2:30 PM EST us Axel Patel DO LAB BLOOD ORDERABLES Final Res ult Performing Organization Address City/[facility]/ZIP Co de Phone Number [facility] [address] [place] [address], [place] [phone] * Magnesium (07/26/2024 2:25 PM EST) [facility] Magnesium 2.0 1.9 - 2.6 mg/dL LAB CHEMISTRY METHOD 07/26/2024 2:55 PM EST [facility] Blood Venous blood specimen / Unknown Venipuncture / Unknown 07/26/2024 2:25 PM EST 07/26/2024 2:30 PM EST us Axel Patel DO LAB BLOOD ORDERABLES Final Res ult [facility] [address] [place] [address], [place] [phone] * Basic metabolic panel (07/26/2024 2:25 PM EST) Sodium 140 133 - 145 mmol/L LAB CHEMISTRY METHOD 07/26/2024 2:55 PM [facility] Potassium 3.9 3.5 - 5.5 mmol/L LAB CHEMISTRY METHOD 07/26/2024 2:55 PM [facility] Chloride 108 96 - 110 mmol/L LAB CHEMISTRY METHOD 07/26/2024 2:55 PM [facility] CO2 26 21 - 32 mmol/L LAB CHEMISTRY METHOD 07/26/2024 2:55 PM [facility] Anion Gap 6 3 - 11 LAB CHEMISTRY METHOD 07/26/2024 2:55 PM [facility] Glucose 97 70 - 100 mg/dL LAB CHEMISTRY METHOD 07/26/2024 2:55 PM [facility] BUN 10 5 - 25 mg/dL LAB CHEMISTRY METHOD 07/26/2024 2:55 PM [facility] Creatinine 0.56 0.50 - 1.10 mg/dL LAB CHEMISTRY METHOD 07/26/2024 2:55 PM [facility] eGFR 114 >=60 mL/min/1. 73m2 LAB CHEMISTRY METHOD 07/26/2024 2:55 PM [facility] Comment:Calculation based on the??Chronic Kidney Disease Epidemiology Collaboration (CKD-EPI) equation refit??without adjustment for race. BUN/Creatinine Ratio 17.9 LAB CHEMISTRY METHOD 07/26/2024 2:55 PM [facility] Calcium 9.4 8.5 - 10.5 mg/dL LAB CHEMISTRY METHOD 07/26/2024 2:55 PM [facility] Blood Venous blood specimen / Unknown Venipuncture / Unknown 07/26/2024 2:25 PM EST 07/26/2024 2:30 PM EST us Axel Patel DO LAB BLOOD ORDERABLES Final Res ult [facility] [address] [place] [address], [place] [phone] * ECG-Outside (07/26/2024) Provider [facility] ECG ORDERABLES Final Re sult * ECG-Annotated (07/26/2024) Provider Onbase MD ECG ORDERABLES Final Result * Hemoglobin A1c (04/06/2024) [facility] Hemoglobin A1C 6.3 <=6.5 % Blood Venous blood specimen / Unknown Historical Provider LAB BLOOD ORDERABLES Sujatha l Result * Hm Diabetes Eye Exam (10/26/2023) [facility] Diabetes: Annual Retina Eye Exam abstracted Historical Provider HEALTH MAINTENANCE Final Result * Lipid panel (06/15/2023) [facility] LDL/HDL Ratio 3 0 - 4 Triglycerides 114 0 - 150 mg/dL Cholesterol 153 0 - 200 mg/dL HDL 51 >=40 mg/dL LDL Cholesterol 80 0 - 100 mg/dL Blood Venous blood specimen / Unknown Historical Provider LAB BLOOD ORDERABLES Sujatha l Result * STEPHANIA SCREENING DIGITAL (04/30/2022 8:33 AM EDT) Anatomical Region Laterality Modality Mammography 04/29/2022 9:46 AM EDT Narrative 04/30/2022 8:33 AM EDT [facility] Diagnostic Imaging Department [address] [place], [place] [id number] Patient: ??ADAMSON,GABY ?/Age/Sex: 1975 - 46 - F Unit#: ??[id number] ? Location/Status: ??SPDIMAM/REG CLI ? Mnemonic/Ordering Site: ??DIGSC/SPMAM Ordering Physician: ??VALENTINE ADAMES MD Stephania Screening Digital - 04/29/22 - 1021 History: Bilateral breast cancer screening. Technique: Bilateral digital mammography. Conventional CC and MLO projections with tomosynthesis MLO views and computer-aided detection Comparison: Mammography from offices of [facility], [place] 01/17/2020, 06/30/2019 and 06/23/2019. Findings: Breast tissue is mostly ??fatty replaced (category A density) (as calculated by Pop.itpara software). Scattered nodular asymmetries are without concerning interval change, considered benign. ??There is no suspicious group of microcalcification, no suspicious mass, architectural distortion or suspicious change in breast tissue density. Impression: ??No evidence of malignancy. BIRADS category 2, negative examination, 3342F [id number], [id number] Note: Patient information entered ??into a reminder system with a target due date for the next mammogram; RI II [id number] Dictating Physician: ??ENOC OCASIO MD Electronically Signed by: ??ENOC OCASIO MD Dic Date/Time: ??04/30/22827 Sign date/Time: ??04/30/22 0833 Procedure Note Enoc Ocasio MD - 07/29/2022 [facility] Diagnostic Imaging Department [address] [place], [place] [id number] Patient: ESTEBAN ADAMSONNA /Age/Sex: 1975 - 46 - F Unit#: [id number] Location/Status: SPDIMAM/REG CLI Mnemonic/Ordering Site: [facility] Ordering Physician: VALENTINE ADAMES MD Stephania Screening Digital - 04/29/22 - 1022 History: Bilateral breast cancer screening. Technique: Bilateral digital mammography. Conventional CC and MLOprojections with tomosynthesis MLO views and computer-aided detection Comparison: Mammography from offices of [place], [place] 01/17/2020, 06/30/2019 and 06/23/2019. Findings: Breast tissue is mostly fatty replaced (category A density) (ascalculated by i[employer] Volpara software). Scattered nodular asymmetries are without concerning interval change, considered benign. There is no suspicious group of microcalcification,no suspicious mass, architectural distortion or suspicious change in breasttissue density. Impression: No evidence of malignancy. BIRADS category 2, negative examination, 3342F [id number], [id number] Note: Patient information entered into a reminder system with a targetdue date for the next mammogram; PQRI II [id number] Dictating Physician: ENOC OCASIO MD Electronically Signed by: ENOC OCASIO MD Dic Date/Time: 04/30/22827 Sign date/Time: 04/30/22832 us Valentine Adames MD IMG BI PROCEDURES Final Result from Last 3 Months or Most Recently Relevant to Health Maintenance Insurance [facility] Care Teams Skein Bleacher Relationship Specialty Start Date End Date Kate Phillip MD [address] [address] PCP - General 07/22/22
--- OUTSIDE RECORDS SUMMARY | 2024-10-20 10:30 | XMS_ITS | Encounter Summary ---
Author Organization [facility] Address [address] [place] [address] Care Team Providers Care Ornamental Metal Erector Name Role Phone Kate Phillip MD Primary Care Provider [phone] Reason for Visit * Reason Onset Date Comments Prior Authorization 01/18/2023 Encounter Details Date Type Department Care Team Description 01/18/2023 Telephone Internal Medicine - [address], [address] [place] [address] Kate Phillip MD [address] [place] [phone] Prior Authorization Social History Tobacco Use Types Packs/Day Years [...] suspected to have Coronavirus/COVID-19? No / Unsure 01/12/2023 12:29 PM EDT documented as of this encounter Miscellaneous Notes * Telephone Encounter - Michelle Beach M.A. - 01/19/2023 1:26 PM EDT Spoke with Nithya from [facility] who stated that the glitch in there system is fixed and if this is run under todays date it will go through. Called pts Krzysztof ran it and it went through. * Telephone Encounter - Neetu kelvin Brooks - 01/18/2023 11:51 AM EDT Prior Authorization for Medication-do not complete and send this encounter unless you have the fax from the pharmacy. Is this a Cover My Meds request: Potter of Medication metformin (GLUCOPHAGE-XR) 500 MG 24 hr tablet Dose of Medication 500 MG ER What is the RX # from the faxed refill? [id number] How does patient take this med? What Pharmacy did the fax come from: [facility] fax #: [phone] [employer] Information from fax: What Prescription Plan does the patient have? Commercial [id number] BIN/PCN if applicable: [id number]/[place] Cardholder ID: Person Code: Relationship Code: Help desk phone: [phone] documented in this encounter Plan of Treatment Not on file documented as of this encounter Visit Diagnoses Not on filedocumented in this encounter Care Teams Ornamental Metal Erector Relationship Specialty Start Date End Date Kate Phillip MD PCP - General Internal Medicine 07/22/22 documented as of this encounter
--- OUTSIDE RECORDS SUMMARY | 2024-10-20 10:30 | XMS_ITS | Encounter Summary ---
Author Organization [facility] Address [address] [place] [address] Care Team Providers Care Appeals And Generalist Clerk Name Role Phone Kate Phillip MD Primary Care Provider [phone] Reason for Visit * Reason Onset Date Comments refill request 05/15/2024 Encounter Details Date Type Department Care Team Description 05/15/2024 Refill Internal Medicine - [address], [address] [place] [address] Kate Phillip MD [address] [place] [phone] refill request Social History Tobacco Use [...] encounter Miscellaneous Notes * Telephone Encounter - Susana Aguirre M.A. - 05/16/2024 11:53 AM EDT Lab Results Component Value Date HGBA1C 6.3 04/06/2024 CHOL 153 06/15/2023 LDL 80 06/15/2023 HDL 51 06/15/2023 TRIG 114 06/15/2023 GLU 122 04/06/2024 CREAT 0.54 04/06/2024 * Telephone Encounter - Kevin White - 05/15/2024 12:34 PM EDT HETAL 04/06/24 documented in this encounter Plan of Treatment Not on file documented as of this encounter Visit Diagnoses Diagnosis Type 2 diabetes mellitus without complication, without long-term current use of insulin (HCC) documented in this encounter Care Teams Appeals And Generalist Clerk Relationship Specialty Start Date End Date Kate Phillip MD PCP - General Internal Medicine 07/22/22 documented as of this encounter
--- OUTSIDE RECORDS SUMMARY | 2024-10-20 10:30 | XMS_ITS | Encounter Summary ---
Author Organization [facility] Address [address] [place] [address] Care Team Providers Care Traveling Crane Operator Name Role Phone Valentine Walters MD Primary Care Provider U Kate Martinez MD Primary Care Provider [phone] Reason for Visit * Reason Onset Date Comments refill request 05/09/2021 Encounter Details Date Type Department Care Team Description 05/09/2021 Refill Gastroenterology - [place] [address] [facility] [address] [place] [address] Lakeisha Jacob DScPAS refill request Social History Tobacco Use Types [...] encounter Miscellaneous Notes * Telephone Encounter - Angela Layne M.A. - 05/09/2021 2:25 PM EDT Beckie 04/02/2021 No upcoming 30 day supply * Telephone Encounter - Michelle Romo - 05/09/2021 2:00 PM EDT Beckie 04/02/2021 No upcoming 30 day supply documented in this encounter Plan of Treatment Not on file documented as of this encounter Visit Diagnoses Diagnosis H. pylori infection Helicobacter pylori (H. pylori) documented in this encounter Care Teams Traveling Crane Operator Relationship Specialty Start Date End Date Valentine Walters MD PCP - General Internal Medicine 08/24/1807/09 Kate Phillip MD PCP - General Internal Medicine 07/22/22 documented as of this encounter
--- OUTSIDE RECORDS SUMMARY | 2024-10-20 10:30 | XMS_ITS | Encounter Summary ---
Author Organization [facility] Address [address] [place] [address] Care Team Providers Care Vocal Teacher Name Role Phone Kate Phillip MD Primary Care Provider [phone] Reason for Visit * Reason Comments E-prescribe Rx Request Encounter Details Date Type Department Care Team Description 09/21/2023 Refill Bariatric Surgery - [address] [place] [address] Ablan Garcia MD [address] [place] [address] [address] [place] [address] E-prescribe Rx Request Social History Tobacco Use Types Packs/Day [...] on filedocumented in this encounter Care Teams Vocal Teacher Relationship Specialty Start Date End Date Kate Phillip MD PCP - General Internal Medicine 07/22/22 documented as of this encounter
== END 2024-10-20 10:02 | disposition home or self-care (01) ==
LOC: HO.HPS 09:34
PROVIDERS: PCP Nurse Practitioner Primary Care; Visit Provider Hospitalist
DX: J45.51 Severe persistent asthma with (acute) exacerbation (principal)
CPT/HCPCS: 99214

== ENCOUNTER → 2024-10-20 09:34 | Outpatient (BNVA) | payer OTHER, SELFPAY | PROVIDERS: PCP Nurse Practitioner Primary Care; Visit Provider Hospitalist | DX: Z23 Encounter for immunization (principal); G47.33 Obstructive sleep apnea (adult) (pediatric); I51.7 Cardiomegaly | CPT/HCPCS: 90471; 90656; 99212 ==

== ENCOUNTER 2024-10-24 13:42 | Outpatient (REF) | payer OTHER, SELFPAY ==
--- NOTE | ~2024-10-24 | XR_ITS ---
EXAMINATION: XR CHEST 2 VIEWS HISTORY: I51.7 - Cardiomegaly COMPARISON: Comparison is made with the prior examination dated 01/25/2022. FINDINGS: PA and lateral views of the chest are submitted. The lungs are expanded and clear. There is no pleural effusion, pneumothorax, or pulmonary vascular congestion. The heart remains enlarged. There is degenerative disc disease of the spine. XR/XR chest 2V IMPRESSION: Cardiomegaly. No acute cardiopulmonary abnormality. Electronically signed by: Aureliano Gardner MD 10/25/2024 07:52 AM EDT
--- OUTSIDE RECORDS SUMMARY | 2024-10-24 16:12 | XMS_ITS | Clinical Summary ---
Author Organization [facility] Address [address] [place] [address] Phone Care Team Providers Care Hand Potter Name Role Phone Kate Phillip MD Primary Care Provider [phone] Allergies No known active allergies Medications Autolet [...] 05/27/17 13:23:05, Route to Pharmacy Electronically , [id number], [facility]/pharmacy #[id number] 05/27/20 17 Active acetaminophen (TYLENOL) [...] 05/27/17 11:37:49, Route to Pharmacy Electronically , [id number], [facility]/pharmacy #[id number] 05/27/20 17 Active DULoxetine (CYMBALTA) [...] and 4 capsules at bedtime. Label in Jordanian. 10 capsules/day, # 300 capsule, Refills 5, Tot. Refills 5, Maintenance, 07/13/18 17:38:14 EST, Instructions Replace Required Details, Route to Pharmacy El... 07/13/20 18 Active hydrOXYzine pamoate (VISTARIL) 25 mg capsule 05/31/20 24 Active lamoTRIgine (LaMICtal) 25 mg tablet 07/04/20 13 Active meloxicam (MOBIC) 7.5 mg tablet 1 tablet = 7.5 mg, By Mouth, Daily, take with food. Label in Jordanian., # 30 tablet, 1 Refills, Maintenance, 01/18/18 [...] Mouth, 2 times a day, Label in Jordanian., # 60 tablet, 5 Refills, Maintenance, 01/18/18 [...] 12/01/2018 SHAJI on CPAP 12/01/2018 Overview (07/28/2024): [facility] [place] Home Sleep Apnea Test: Date 10/05/2019; Wt [...] oxygen saturation 97% (lowest 89%); PLMs 0. [facility] CPAP Polysomnogram: Date 02/14/2009; Wt 240#; BMI [...] (07/28/2024): Followed by Dr Nahum Collins at [facility] Depression 08/24/2018 HTN (hypertension) 08/24/2018 Encounters Date Type Department Care Team Description 09/18/2024 3:30 PM EST Office Visit Internal Medicine - [address] [address] Kate Phillip MD Primary hypertension (Primary Dx); SHAJI on CPAP; Type 2 diabetes mellitus without complication, without long-term current use of insulin (CMS/HCC); Moderate persistent asthma without complication; Morbid obesity (CMS/HCC) 08/21/2024 2:45 PM EST Office Visit Internal Medicine [address] [address] Kate Phillip MD Primary hypertension (Primary Dx); Class 3 severe obesity due to excess calories with serious comorbidity and body mass index (BMI) of 60.0 to 69.9 in adult (CMS/HCC); SHAJI on CPAP; Depression, unspecified depression type; Mild intermittent asthma without complication 08/10/2024 Telephone Internal Medicine [facility] [address] [address] Kate Phillip MD Hospital Follow-up 07/27/2024 Telephone Internal Medicine - [place] [address] [address] Kate Phillip MD Hypertension; Hospital Follow-up 07/26/2024 8:32 PM EST - 07/26/2024 9:08 PM EST [facility] Emergency [address] [place] [address] Riaz Taylor DO Chronic hypertension [...] AM EDT Office Visit Internal Medicine - [place] 175 [facility] [address] [place] [phone] Kate Phillip MD 175 [facility] 200 [place] [address] 12/14/2024 4:00 PM EDT Office Visit Bariatric Surgery - [place] 175 [facility] [address] [place] [phone] Alban Garcia MD 175 [facility] [address] [place] [address] 01/31/2025 2:45 PM EDT Office Visit Internal Medicine - [place] 175 [facility] [address] [place] [address] Kate Phillip MD 175 [facility] 200 [place] [address] Health Maintenance Due Date Last [...] GEMUSE QTc 457 ms GEMUSE P Wave Pomerene 51 degrees GEMUSE R Pomerene -2 degrees GEMUSE T Pomerene 20 degrees GEMUSE ECG Interpretation Normal sinus [...] K/mcL LAB HEMETOLOGY METHOD 07/26/2024 2:47 PM [facility] RBC 4.30 3.80 - 4.80 M/mcL LAB HEMETOLOGY METHOD 07/26/2024 2:47 PM [facility] Hemoglobin 11.8 11.5 - 16.0 g/dL LAB HEMETOLOGY METHOD 07/26/2024 2:47 PM [facility] Hematocrit 36.6 35.0 - 47.0 % LAB HEMETOLOGY METHOD 07/26/2024 2:47 PM [facility] MCV 86.1 79.0 - 98.0 FL LAB HEMETOLOGY METHOD 07/26/2024 2:47 PM [facility] MCH 27.8 27.0 - 32.0 pcg LAB HEMETOLOGY METHOD 07/26/2024 2:47 PM [facility] MCHC 32.2 32.0 - 37.0 g/dL LAB HEMETOLOGY METHOD 07/26/2024 2:47 PM [facility] RDW 13.9 11.0 - 15.0 % LAB HEMETOLOGY METHOD 07/26/2024 2:47 PM [facility] Platelets 353 130 - 400 K/mcL LAB HEMETOLOGY METHOD 07/26/2024 2:47 PM [facility] MPV 10.0 7.0 - 11.0 FL LAB HEMETOLOGY METHOD 07/26/2024 2:47 PM [facility] NRBC 0.0 <1.0 % LAB HEMETOLOGY METHOD 07/26/2024 2:47 PM [facility] NRBC Absolute 0.00 <0.10 K/mcL LAB HEMETOLOGY METHOD 07/26/2024 2:47 PM [facility] Neutrophils Relative 48.2 % LAB HEMETOLOGY METHOD 07/26/2024 2:47 PM [facility] Lymphocytes Relative 36.3 % LAB HEMETOLOGY METHOD 07/26/2024 2:47 PM [facility] Monocytes Relative 8.5 % LAB HEMETOLOGY METHOD 07/26/2024 2:47 PM [facility] Eosinophils Relative 5.2 % LAB HEMETOLOGY METHOD 07/26/2024 2:47 PM [facility] Basophils Relative 1.1 % LAB HEMETOLOGY METHOD 07/26/2024 2:47 PM [facility] Immature Granulocytes Relative 0.7 % LAB HEMETOLOGY METHOD 07/26/2024 2:47 PM [facility] Neutrophils Absolute 2.71 1.50 - 7.00 K/mcL LAB HEMETOLOGY METHOD 07/26/2024 2:47 PM [facility] Lymphocytes Absolute 2.04 1.00 - 5.00 K/mcL LAB HEMETOLOGY METHOD 07/26/2024 2:47 PM [facility] Monocytes Absolute 0.48 0.20 - 1.00 K/mcL LAB HEMETOLOGY METHOD 07/26/2024 2:47 PM EST [facility] Eosinophils Absolute 0.29 0.00 - 0.50 K/mcL LAB HEMETOLOGY METHOD 07/26/2024 2:47 PM EST [facility] Basophils Absolute 0.06 0.00 - 0.20 K/mcL LAB HEMETOLOGY METHOD 07/26/2024 2:47 PM EST [facility] Immature Granulocytes Absolute 0.04(H) 0.00 - 0.03 K/[facility] LAB HEMETOLOGY METHOD 07/26/2024 2:47 PM EST [facility] Blood Venous blood specimen / Unknown Venipuncture / Unknown 07/26/2024 2:25 PM EST 07/26/2024 2:30 PM EST us Axel Patel DO LAB BLOOD ORDERABLES Final Res ult Performing Organization Address City/[facility]/ZIP Co de Phone Number [facility] [address] [place] [address], [place] [phone] * Magnesium (07/26/2024 2:25 PM EST) [facility] Magnesium 2.0 1.9 - 2.6 mg/dL LAB CHEMISTRY METHOD 07/26/2024 2:55 PM EST [facility] Blood Venous blood specimen / Unknown Venipuncture / Unknown 07/26/2024 2:25 PM EST 07/26/2024 2:30 PM EST us Axel Patel DO LAB BLOOD ORDERABLES Final Res ult [facility] [address] [place] [address], [place] [phone] * Basic metabolic panel (07/26/2024 2:25 PM EST) Sodium 140 133 - 145 mmol/L LAB CHEMISTRY METHOD 07/26/2024 2:55 PM [facility] Potassium 3.9 3.5 - 5.5 mmol/L LAB CHEMISTRY METHOD 07/26/2024 2:55 PM [facility] Chloride 108 96 - 110 mmol/L LAB CHEMISTRY METHOD 07/26/2024 2:55 PM [facility] CO2 26 21 - 32 mmol/L LAB CHEMISTRY METHOD 07/26/2024 2:55 PM [facility] Anion Gap 6 3 - 11 LAB CHEMISTRY METHOD 07/26/2024 2:55 PM [facility] Glucose 97 70 - 100 mg/dL LAB CHEMISTRY METHOD 07/26/2024 2:55 PM [facility] BUN 10 5 - 25 mg/dL LAB CHEMISTRY METHOD 07/26/2024 2:55 PM [facility] Creatinine 0.56 0.50 - 1.10 mg/dL LAB CHEMISTRY METHOD 07/26/2024 2:55 PM [facility] eGFR 114 >=60 mL/min/1. 73m2 LAB CHEMISTRY METHOD 07/26/2024 2:55 PM [facility] Comment:Calculation based on the??Chronic Kidney Disease Epidemiology Collaboration (CKD-EPI) equation refit??without adjustment for race. BUN/Creatinine Ratio 17.9 LAB CHEMISTRY METHOD 07/26/2024 2:55 PM [facility] Calcium 9.4 8.5 - 10.5 mg/dL LAB CHEMISTRY METHOD 07/26/2024 2:55 PM [facility] Blood Venous blood specimen / Unknown Venipuncture / Unknown 07/26/2024 2:25 PM EST 07/26/2024 2:30 PM EST us Axel Patel DO LAB BLOOD ORDERABLES Final Res ult [facility] [address] [place] [address], [place] [phone] * ECG-Outside (07/26/2024) Provider [facility] ECG [...] AM EDT Narrative 04/30/2022 8:33 AM EDT [facility] Diagnostic Imaging Department [address] [place], [place] [id number] Patient: ??ADAMSON,GABY ?/Age/Sex: 1975 - 46 - F Unit#: ??[id number] ? Location/Status: ??SPDIMAM/REG CLI ? Mnemonic/Ordering Site: ??DIGSC/SPMAM Ordering Physician: ??VALENTINE ADAMES MD Stephania Screening Digital - 04/29/22 - 1021 History: Bilateral breast cancer screening. Technique: Bilateral digital mammography. Conventional CC and MLO projections with tomosynthesis MLO views and computer-aided detection Comparison: Mammography from offices of [facility] of [place], [place] 01/17/2020, 06/30/2019 and 06/23/2019. Findings: Breast tissue is mostly ??fatty replaced (category A density) (as calculated by Blazepara software). Scattered nodular asymmetries are without concerning interval change, considered benign. ??There is no suspicious group of microcalcification, no suspicious mass, architectural distortion or suspicious change in breast tissue density. Impression: ??No evidence of malignancy. BIRADS category 2, negative examination, 3342F 53597, [id number] Note: Patient information entered ??into a reminder system with a target due date for the next mammogram; RI II 8766M Dictating Physician: ??ENOC OCASIO MD Electronically Signed by: ??ENOC OCASIO MD Dic Date/Time: ??04/30/22827 Sign date/Time: ??04/30/22 0833 Procedure Note Enoc Ocasio MD - 07/29/2022 [facility] Diagnostic Imaging Department [address] [place], [place] [id number] Patient: ESTEBAN ADAMSONNA /Age/Sex: 1975 - 46 - F Unit#: [id number] Location/Status: SPDIMAM/REG CLI Mnemonic/Ordering Site: [facility] Ordering Physician: VALENTINE ADAMES MD Stephania Screening Digital - 04/29/22 - 1022 History: Bilateral breast cancer screening. Technique: Bilateral digital mammography. Conventional CC and MLOprojections with tomosynthesis MLO views and computer-aided detection Comparison: Mammography from offices of [place], [place] 01/17/2020, 06/30/2019 and 06/23/2019. Findings: Breast tissue is mostly fatty replaced (category A density) (ascalculated by i[employer] Volpara software). Scattered nodular asymmetries are without concerning interval change, considered benign. There is no suspicious group of microcalcification,no suspicious mass, architectural distortion or suspicious change in breasttissue density. Impression: No evidence of malignancy. BIRADS category 2, negative examination, 3342F 14433, [id number] Note: Patient information entered into a reminder system with a targetdue date for the next mammogram; PQRI II 7025F Dictating Physician: ENOC OCASIO MD Electronically Signed by: ENOC OCASIO MD Dic Date/Time: 04/30/22827 Sign date/Time: 04/30/22832 us Valentine Adames MD IMG BI PROCEDURES Final Result from Last 3 Months or Most Recently Relevant to Health Maintenance Insurance [facility] Care Teams Hand Potter Relationship Specialty Start Date End Date Kate Phillip MD [address] [address] PCP - General 07/22/22
== END 2024-10-24 13:43 | disposition home or self-care (01) ==
LOC: HO.XRAY 13:42
PROVIDERS: PCP Internal Medicine; Visit Provider Hospitalist
DX: I51.7 Cardiomegaly (principal)
CPT/HCPCS: 71046

== ENCOUNTER → 2024-10-24 13:46 | Outpatient (BNV) | payer OTHER, SELFPAY | PROVIDERS: PCP Internal Medicine; Visit Provider Radiology Diagnostic Radiology | DX: I51.7 Cardiomegaly (principal) | CPT/HCPCS: 71046 ==

== ENCOUNTER 2025-02-05 13:00 | Outpatient (AMB) | payer OTHER, SELFPAY ==
--- OUTSIDE RECORDS SUMMARY | 2025-01-31 14:45 | XMS_ITS | Encounter Summary ---
Author Organization [facility] Address [address] [place] [address] Care Team Providers Care Legal Technician Name Role Phone Kate Phillip MD Primary Care Provider [phone] Reason for Referral * Consultation (Routine) - Closed Specialty Diagnoses / Procedures Referred By Opal kraus Referred To Contact Otolaryngology Diagnoses Hearing difficulty of both ears Kate Phillip MD [address] [facility] [address] [place] [address] Phone: tel: fax: [facility] [address] [place] [address] Phone: tel: fax: Referral ID Status Reason Start Date Expiration Date V isits Requested Visits Authorized [id number] Closed Specialty Services Required 01/31/2025 01/31/2026 1 1 Reason for Visit * Reason Comments Follow-up Encounter Details Date Type Department Care Team ([facility] st Contact Info) Description 01/31/2025 2:45 PM EDT Office Visit Internal Medicine - [facility] [address] [facility] [address] [place] [address] Kate Phillip MD [address] [facility] [address] [place] [address] Right foot pain (Primary Dx); Type 2 diabetes mellitus without complication, without long-term current use of insulin ([facility] V24, [facility] V28); Primary hypertension; Class 3 severe obesity due to excess calories with serious comorbidity and body mass index (BMI) of 60.0 to 69.9 in adult ([facility] V24, [facility] V28); Morbid obesity ([facility] V24, [facility] V28); Hearing difficulty of both ears Social History Tobacco Use Types Packs/Day Years [...] Orientation Straight 07/26/2024 8: 44 PM EST documented as of this encounter Last Filed Vital Signs Vital Sign Reading Time Taken Comments Blood Pressure 134/86 01/31/2025 2:50 PM EDT Pulse 108 01/31/2025 2:50 PM EDT Temperature 36.9 C (98.4 F) 01/31/2025 2:50 PM EDT Respiratory Rate - - Oxygen Saturation 97% 01/31/2025 2:50 PM EDT Inhaled Oxygen Concentration - - Weight 142 kg (314 lb) 01/31/2025 2:50 PM EDT Height - - Body Mass Index 59.33 12/19/2024 3:44 PM EDT documented in this encounter Ordered Prescriptions Prescription Sig Dispense Quantity Refills Last Filled Start Date End Date dulaglutide (TRULICITY) 4.5 mg/0.5 mL pen injector injectionIndicatio ns:Type 2 diabetes mellitus without complication, without long-term current use of insulin ([facility] V24, [facility] V28) Inject 0.5 mL (4.5 mg total) under the skin every 7 (seven) days. 2 mL 3 01/31/2025 enalapril (VASOTEC) 20 mg tablet Take 2 tablets (40 mg total) by mouth 1 (one) time each day. 60 each 5 01/31/2025 amLODIPine (NORVASC) 5 mg tablet Take 1 tablet (5 mg total) by mouth 1 (one) time each day. 30 each 5 01/31/2025 5 cholecalciferol (VITAMIN D-3) 50 mcg (2,000 unit) capsule Take 1 capsule (2,000 Units total) by mouth 1 (one) time each day. 30 capsule 1 01/31/2025 documented in this encounter Progress Notes * Kate Phillip MD - 01/31/2025 2:45 PM EDT CHIEF COMPLAINT: Follow-up IDENTIFIER: Mariaelena Adamson is a 49 y.o. old female. HPI:Asthma,SHAJI on CPAP ,Hypertension,Chronic migrain headache,GERD,Depression,prediabetes. Following weight management, on Trulicity for weight loss. Concerned about right foot pain from the morning, no injury or fall. ROS: GENERAL: No malaise, significant weight loss or fever NECK: No lumps, goiter, pain or significant neck swelling RESPIRATORY: No cough, wheezing or shortness of breath CARDIOVASCULAR: No chest pain, leg swelling or palpitations GI: No abdominal discomfort, blood in stools or black stools PSYCH: No sleep disturbance, mood disorder or recent psychosocial stressors. PAST MEDICAL HISTORY: Patient Active Problem List Diagnosis Date Noted Urinary incontinence 04/06/2024 Migraine without status migrainosus, not intractable 04/14/2023 Chronic pain of both knees 04/14/2023 Type 2 diabetes mellitus ([facility] V24, [facility] V28) 03/06/2022 COVID 12/29/2021 Lab test negative for COVID-19 virus 01/09/2021 Class 3 severe obesity due to excess calories with body mass index (BMI) of 60.0 to 69.9 in adult ([facility] V24, [facility] V28) 02/22/2020 Allergic rhinitis due to pollen 12/01/2018 Moderate persistent asthma without complication 12/01/2018 SHAJI on CPAP 12/01/2018 Post-nasal drainage 12/01/2018 Overlap syndrome ([facility] V24) 12/01/2018 Morbid obesity ([facility] V24, [facility] V28) 11/29/2018 Anxiety 08/24/2018 Asthma 08/24/2018 Bipolar disorder ([facility] V24, [facility] V28) 08/24/2018 Depression 08/24/2018 HTN (hypertension) 08/24/2018 Past Surgical History: Procedure Laterality Date OTHER SURGICAL HISTORY PROCEDURE: DENIES PREVIOUS SURGERY SOCIAL HISTORY: Social History Tobacco Use Smoking status: Never Smokeless tobacco: Never Substance Use Topics Alcohol use: No FAMILY HISTORY: Family History Problem Relation Name Age of Onset Diabetes Father Diabetes Paternal Grandmother Diabetes Uncle Breast cancer Neg Hx Family Status Relation Name Status Father (Not Specified) PGM (Not Specified) Uncle (Not Specified) Neg Hx (Not Specified) No partnership data on file MEDICATIONS DISCONTINUED/REORDERED: Medications Discontinued During This Encounter Medication Reason Paxlovid 300 mg (150 mg x 2)-100 mg tablet therapy pack Ineffective amLODIPine (NORVASC) 5 mg tablet Reorder enalapril (VASOTEC) 20 mg tablet Reorder cholecalciferol (VITAMIN D-3) 50 mcg (2,000 unit) capsule Reorder ACTIVE MEDICATIONS: Outpatient Medications Marked as Taking for the 01/31/25 encounter (Office Visit) with Kate Phillip MD Medication Sig Dispense Refill acetaminophen (TYLENOL) 500 mg tablet Take 1 tablet (500 mg total) by mouth every 6 (six) hours if needed. albuterol HFA (ProAir HFA) 90 mcg/actuation inhaler INHALE 2 PUFFS INTO THE LUNGS EVERY 4 HOURS NEEDED FOR OTHER (COUGH, WHEEZING, SHORTNESS OF BREATH). amitriptyline (ELAVIL) 100 mg tablet 1.5 tablet = 150 mg, By Mouth, Daily at bedtime, # 45 tablet, 5 Refills, Maintenance, 05/27/17 13:21:53, Tablet amLODIPine (NORVASC) 5 mg tablet Take 1 tablet (5 mg total) by mouth 1 (one) time each day. 30 each5 ARIPiprazole (ABILIFY) 2 mg tablet Autolet lancing device 1 Device by Does not apply route Once. DX; E11.9 blood pressure monitor kit blood pressure monitor, Diagnosis ICD 10 401.1 Hypertension, See Instructions, # 1 each, Refills 0, Tot. Refills 0, Maintenance, check BP at home daily, 10/07/17 9:29:51, Compound budesonide/formoterol fumarate (SYMBICORT INHL) buPROPion SR (WELLBUTRIN SR) 150 mg 12 hr tablet Take 1 tablet (150 mg total) by mouth 2 (two) times a day. cholecalciferol (VITAMIN D-3) 50 mcg (2,000 unit) capsule Take 1 capsule (2,000 Units total) by mouth 1 (one) time each day. 30 capsule 1 clobetasoL (TEMOVATE) 0.05 % cream docusate sodium (Colace) 100 mg capsule DULoxetine (CYMBALTA) [address] capsule enalapril (VASOTEC) 20 mg tablet Take 2 tablets (40 mg total) by mouth 1 (one) time each day. 60 each 5 famotidine (PEPCID) 10 mg tablet Take 1 tablet (10 mg total) by mouth 2 (two) times a day. ferrous sulfate 324 mg (65 mg elemental iron) EC tablet TAKE 1 TABLET BY MOUTH 2 TIMES DAILY. 60 tablet 1 zkfwhgfyvgw-qcwmnsvdfmox-lvuudjkopq (Trelegy Ellipta) 200-62.5-25 mcg inhaler Inhale 1 Puff into the lungs daily. gabapentin (NEURONTIN) 300 mg capsule See Instructions, 3 capsules By Mouth in AM and PM and 4 capsules at bedtime. Label in Cook Islander. 10 capsules/day, # 300 capsule, Refills 5, Tot. Refills 5, Maintenance, 07/13/18 17:38:14 EST, Instructions Replace Required Details, Route to Pharmacy El... glucose blood test strip Use as instructed 100 each 3 hydrOXYzine pamoate (VISTARIL) 25 mg capsule ibuprofen (ADVIL,MOTRIN) 800 mg tablet TAKE 1 TABLET (800 MG TOTAL) BY MOUTH EVERY 8 (EIGHT) HOURS IF NEEDED FOR MILD PAIN. 30 tablet 0 Incruse Ellipta 62.5 mcg/actuation inhalation lamoTRIgine (LaMICtal) 25 mg tablet lancets lancets Test blood sugars 3 times a day Dx: E11.9 loratadine (CLARITIN) 10 mg tablet Take 1 tablet (10 mg total) by mouth 1 (one) time each day. 30 tablet 3 meloxicam (MOBIC) 7.5 mg tablet metFORMIN XR (GLUCOPHAGE-XR) 500 mg 24 hr tablet TAKE 1 TABLET BY MOUTH DAILY (WITH BREAKFAST). 90 tablet 2 methylPREDNISolone (MEDROL) 4 mg tablet miscellaneous medical supply (Blood Pressure Cuff) [facility] 1 each 1 (one) time each day. 1 each montelukast (SINGULAIR) 10 mg tablet Take 1 tablet (10 mg total) by mouth 1 (one) time each day. omeprazole (PriLOSEC) [address] capsule Take 1 capsule (20 mg total) by mouth 2 (two) times a day. oxyBUTYnin XL (DITROPAN-XL) 10 mg 24 hr tablet predniSONE (DELTASONE) 20 mg tablet 2 tab for 3 days and then 1 tab daily Pure Comfort Safety Lancets 30 [facility] USE THREE TIMES DAILY 100 each 0 QUEtiapine (SeroqueL) 100 mg tablet ramelteon (Rozerem) 8 mg tablet roflumilast (DALIRESP) 500 mcg tablet Take by mouth. sodium chloride (AYR) 0.65 % nasal drops Administer into affected nostril(s). topiramate (TOPAMAX) 50 mg tablet 1 tablet = 50 mg, By Mouth, 2 times a day, Label in [place]er., # 60 tablet, 5 Refills, Maintenance, 01/18/18 14:49:34 EDT, Tablet triamcinolone (KENALOG) 0.025 % cream triamcinolone (NASACORT) 55 mcg nasal inhaler 55 mcg by Nasal route daily. Trulicity 3 mg/0.5 mL pen injector injection INJECT 0.5 ML (3 MG TOTAL) UNDER THE SKIN EVERY 7 (SEVEN) DAYS. 2 mL 2 [DISCONTINUED] amLODIPine (NORVASC) 5 mg tablet Take 1 tablet (5 mg total) by mouth 1 (one) time each day. 30 each 5 [DISCONTINUED] cholecalciferol (VITAMIN D-3) 50 mcg (2,000 unit) capsule TAKE 1 CAPSULE BY MOUTH DAILY. 30 capsule 1 [DISCONTINUED] enalapril (VASOTEC) 20 mg tablet Take 2 tablets (40 mg total) by mouth 1 (one) time each day. 60 each 5 [DISCONTINUED] Paxlovid 300 mg (150 mg x 2)-100 mg tablet therapy pack ALLERGIES: No Known Allergies PHYSICAL EXAM: Visit Vitals BP 134/86 (BP Location: Right arm, Patient Position: Sitting, BP Cuff Size: Adult) Pulse 108 Temp 36.9 ??C (98.4 ??F) (Temporal) Wt 142 kg (314 lb) SpO2 97% BMI 59.33 kg/m?? Smoking Status Never BSA 2.28 m?? APPEARANCE: Alert and in no acute distress NECK: Neck supple, no adenopathy, thyroid symmetric and of normal size HEART: RRR with normal S1 and S2, no murmurs, no gallops, no JVD appreciated LUNG: clear to auscultation ABDOMEN: Bowel sounds normoactive, no bruits, soft, non-tender, without organomegaly or palpable masses SKIN: Skin color, texture, turgor normal. No rashes or lesions. LABS/IMAGING: No visits with results within 6 Month(s) from this visit. Latest known visit with results is: Abstract on 07/28/2024 Component Date Value Ref Range Status Annual BMP Blood Test 04/06/2024 abstracted Final Diabetes: Annual Retina Eye Exam 10/26/2023 abstracted Final LDL/HDL Ratio 06/15/2023 3 0 - 4 Final Triglycerides 06/15/2023 114 0 - 150 mg/dL Final Cholesterol 06/15/2023 153 0 - 200 mg/dL Final HDL 06/15/2023 51 >=40 mg/dL Final LDL Cholesterol 06/15/2023 80 0 - 100 mg/dL Final Hemoglobin A1C 04/06/2024 6.3 <=6.5 % Final Medication and lab orders: Orders Placed This Encounter Procedures Comprehensive metabolic panel CBC and differential Ambulatory referral to ENT Other orders: AMB REFERRAL TO ENT IMPRESSION: 1. Right foot pain 2. Type 2 diabetes mellitus without complication, without long-term current use of insulin (CMS/HCCV24, CMS/HCC V28) 3. Primary hypertension 4. Class 3 severe obesity due to excess calories with serious comorbidity and body mass index (BMI)of 60.0 to 69.9 in adult (CMS/HCC V24, CMS/HCC V28) 5. Morbid obesity (CMS/HCC V24, CMS/HCC V28) 6. Hearing difficulty of both ears PLAN: Right foot pain--reassurance, patient will give me a call if pain does not get better in the next couple of weeks Diabetes-- continue metformin 500 mg daily, will increase Trulicity to 4.5 mg weekly History of asthma, compliant with Trelegy, singulair, Loratadine and albuterol PRN. Has been using Albuterol BID. Following pulmo in [place]. Hearing difficulty--patient used to have hearing aids, will refer to ENT - Uses CPAP machine QHS for SHAJI. - HTN on Enalapril 40 mg daily, and amlodipine 5 mg daily, has been well controlled. - Chronic migraine on Topamax 50 mg po QHS with intermittent relief, reports her sister was diagnosed with brain aneurysm. - GERD on Omeprazole 20 mg po BID with good relief. - Depression and anxiety on Wellbutrin 150 mg po BID, followed by [facility] every 3 months. Denies SI/ HI - BMI 59.33 not followed by bar surgery anymore Kate Phillip MD on 01/31/2025 at 3:11 PM EDT documented in this encounter Plan of Treatment Upcoming Encounters Date Type Department Care Team ([facility] st Contact Info) Description 02/21/2025 1:00 PM EDT Nutrition Bariatric Surgery - [address] [place] [phone] Evy Pérez, RD 175 [facility] [address] [place] [phone] 07/04/2025 2:30 PM EST Office Visit Internal Medicine - [address] [place] [phone] Kate Phillip MD [address] [address] Scheduled Referrals Name Type Priority Associated Diagnoses Order Schedule Ambulatory referral to ENT Outpatient Referral Routine Hearing difficulty of both ears 1 Occurrences starting 01/31/2025 until 01/31/2026 documented as of this encounter Results * (ABNORMAL) Comprehensive metabolic panel (02/01/2025 10:36 AM EDT) Sodium 139 133 - 145 mmol/L LAB CHEMISTRY METHOD 02/01/2025 3:04 PM EDT [facility] Potassium 4.4 3.5 - 5.5 mmol/L LAB CHEMISTRY METHOD 02/01/2025 3:04 PM [facility] Chloride 105 96 - 110 mmol/L LAB CHEMISTRY METHOD 02/01/2025 3:04 PM [facility] CO2 28 21 - 32 mmol/L LAB CHEMISTRY METHOD 02/01/2025 3:04 PM [facility] Anion Gap 6 3 - 11 LAB CHEMISTRY METHOD 02/01/2025 3:04 PM [facility] Glucose 120(H) 70 - 100 mg/dL LAB CHEMISTRY METHOD 02/01/2025 3:04 PM [facility] BUN 12 5 - 25 mg/dL LAB CHEMISTRY METHOD 02/01/2025 3:04 PM [facility] Creatinine 0.61 0.50 - 1.10 mg/dL LAB CHEMISTRY METHOD 02/01/2025 3:04 PM [facility] eGFR 111 >=60 mL/min/1. 73m2 LAB CHEMISTRY METHOD 02/01/2025 3:04 PM [facility] Comment:Calculation based on the Chronic Kidney Disease Epidemiology Collaboration (CKD-EPI) equation refit without adjustment for race. BUN/Creatinine Ratio 19.7 LAB CHEMISTRY METHOD 02/01/2025 3:04 PM [facility] Calcium 9.1 8.5 - 10.5 mg/dL LAB CHEMISTRY METHOD 02/01/2025 3:04 PM [facility] AST (SGOT) 12 10 - 42 unit/L LAB CHEMISTRY METHOD 02/01/2025 3:04 PM [facility] ALT (SGPT) 19 10 - 60 unit/L LAB CHEMISTRY METHOD 02/01/2025 3:04 PM [facility] Alkaline Phosphatase 125(H) 42 - 121 unit/L LAB CHEMISTRY METHOD 02/01/2025 3:04 PM [facility] Total Protein 7.2 6.0 - 8.0 g/dL LAB CHEMISTRY METHOD 02/01/2025 3:04 PM EDT [facility] Albumin 3.6 3.2 - 5.0 g/dL LAB CHEMISTRY METHOD 02/01/2025 3:04 PM EDT [facility] Total Bilirubin 0.3 0.0 - 1.4 mg/dL LAB CHEMISTRY METHOD 02/01/2025 3:04 PM EDT [facility] Blood Venous blood specimen / Unknown Venipuncture / Unknown 02/01/2025 10:36 AM EDT 02/01/2025 10:36 AM EDT us Kate Phillip MD LAB BLOOD ORDERABLES Final Res ult [facility] [address] [place] [address], [place] [phone] documented in this encounter Visit Diagnoses Diagnosis Right foot pain- Primary Pain in soft tissues of limb Type 2 diabetes mellitus without complication, without long-term current use of insulin ([facility] V24, [facility] V28) Primary hypertension Unspecified essential hypertension Class 3 severe obesity due to excess calories with serious comorbidity and body mass index (BMI) of 60.0 to 69.9 in adult ([facility] V24, [facility] V28) Morbid obesity ([facility] V24, [facility] V28) Morbid obesity Hearing difficulty of both ears documented in this encounter Discontinued Medications Medication Sig Discontinue Reason Start Date End Da te Paxlovid 300 mg (150 mg x 2)-100 mg tablet therapy pack Ineffective 08/25/2023 01/31/2025 amLODIPine (NORVASC) 5 mg tablet Take 1 tablet (5 mg total) by mouth 1 (one) time each day. Reorder 08/21/2024 01/31/2025 enalapril (VASOTEC) 20 mg tablet Take 2 tablets (40 mg total) by mouth 1 (one) time each day. Reorder 10/30/2024 01/31/2025 cholecalciferol (VITAMIN D-3) 50 mcg (2,000 unit) capsule TAKE 1 CAPSULE BY MOUTH DAILY. Reorder 11/20/2024 01/31/2025 documented as of this encounter Care Teams Legal Technician Relationship Specialty Start Date End Date Kate Phillip MD [address] [phone] PCP - General 07/22/22 documented as of this encounter
--- NOTE | 2025-02-05 13:01 | A.OFFVIS_ITS ---
Intake Visit Reasons: 6m/PVR Intake Note: Patient presents today for a follow-up on: incontinence, urgency, and frequency Meds- Oxybutynin Allergies to Antibiotic- No Known Allergies Blood Thinner- None Post Void Residual: 94 ml's Alteration Tailor Apprentice Required: Yes Alteration Tailor Apprentice Services: Alteration Tailor Apprentice Offered & Declined Accompanied by: Child Allergies No Known Allergies Allergy (Verified 02/05/25 13:31) Medication List - Last Reconciled 02/05/25 by MARLEEN Joseph- albuterol sulfate 90 mcg/actuation (Ventolin HFA) 2 puffs inhalation Q6H PRN albuterol sulfate 2.5 mg (3 mL) inhalation Q4-6H PRN amlodipine 2.5 mg PO DAILY cholecalciferol (vitamin D3) 50 mcg PO DAILY CPAP (CPAP Machine/Device) As directed enalapril maleate 20 mg PO BID famotidine (Heartburn Relief (famotidine)) mg PO fluticasone furoate-vilanterol 200-25 mcg/dose (Breo Ellipta) 1 inh inhalation DAILY 30 days hydroxyzine HCl 25 mg PO BID PRN loratadine 10 mg PO DAILY metformin ER 500 mg PO DAILY methylprednisolone (Medrol (Sanya)) PO PER PKG DIR 6 days montelukast 10 mg PO DAILY 90 days nebulizers As directed oxybutynin chloride ER 20 mg (2 x 10 mg) PO DAILY 90 days roflumilast 500 mcg PO DAILY topiramate 50 mg PO DAILY umeclidinium 62.5 mcg/actuation (Incruse Ellipta) 1 inh inhalation DAILY 30 days HPI Comments Details: Mariaelena is a very pleasant 49-year-old Ukrainian-speaking female patient of Dr. Calles who was accompanied by her daughter at today's office visit. She has a past medical history of anxiety, depression, bipolar disorder, hypertension, asthma, and obesity. She presents to the office today for follow-up. In discussion with the patient today she reports to be doing and feeling well. She reports compliance with oxybutynin as prescribed and discusses how this has significantly improved her episodes of urinary urgency and frequency. She also reports feeling this has significantly improved her quality of life. In office urinalysis results reviewed with the patient today. PVR 94 mL. Previous workup has included a retroperitoneal ultrasound 05/31 noting bilateral kidneys with no hydronephrosis, and or calculi seen. The bladder is partially distended. Bilateral ureteral jets are demonstrated. Pre void bladder volume is approximately 165 mL. Postvoid bladder volume is approximately 30 mL. She has a history of having four childbirths. Discussed at length potential causes for lower urinary tract symptoms patient was experiencing. She does note episodes of urinary frequency over the last 1-2 days however feels this is related to increased spicy foods she otherwise denies hematuria, dysuria, foul smelling urine, changes to urinary stream, flank pain, fever, and or chills. All questions were answered. She otherwise offers no other issues or concerns at this time. [facility] Medical History Asthma-COPD overlap syndrome Anxiety Depression Bipolar disorder Hypertension Asthma Social History Alcohol intake: never Patient Tobacco Use Status: Never used Tobacco Review of Systems Const Reports no additional complaints Eyes Reports no additional complaints ENT Reports no additional complaints Card Reports as per HPI Resp Reports as per HPI GI Reports no additional complaints Reports as per HPI Neuro Reports as per HPI Psych Reports as per HPI Endo Reports no additional complaints Physical Exam Const General: cooperative, healthy appearing, comfortable, no acute distress, well developed, alert and awake Nutritional Appearance: overweight Orientation/consciousness: patient oriented x3 Limitations: no limitations HEENT Head: Yes normal to inspection, Yes normocephalic and Yes atraumatic Ears: hearing grossly normal bilaterally Eyes General: appearance normal, both eyes and all related structures Neck Neck: Yes normal visual inspection and Yes trachea midline Chest Chest palpation & inspection: normal inspection of the chest Resp Effort & Inspection: normal respiratory effort and able to speak in complete sentences Cardio Rate: regular rate GI Inspection: Yes normal to inspection General: Yes no CVA tenderness Back/Spine/Pelvis Back: no CVA tenderness Skin General skin exam: no rashes or lesions noted Neuro General: patient oriented x3 Extrem General: Yes normal to inspection Psych Appearance: grossly normal and well kempt Mental Status: mental status grossly normal Speech and movement: Normal speech and movement present and Clear speech present Affect: normal affect Attitude: cooperative Thought process: Normal thought process present Thought content: Normal thought content present Insight: Fair insight present (Psych) Judgement: Fair judgement present (Psych) Assessment & Plan Assessment & Plan (1) Urinary urgency: Code(s): R39.15 - Urgency of urination Category: Medical (2) Urinary frequency: Code(s): R35.0 - Frequency of micturition Category: Medical (3) Urinary incontinence, urge: Code(s): N39.41 - Urge incontinence Category: Medical Plan In office urinalysis results reviewed with the patient today; as noted above. PVR 92 mL. Discussed at length bladder triggers/irritants. Continue oxybutynin 20 mg as discussed and prescribed. Discussed at length importance of losing weight for improvement in lower urinary tract symptoms as well as overall health and well-being. Discussed near future in office cystoscopy or urodynamics if symptoms arise and or worsen. Follow-up in 6 months with PVR; or sooner with any issues, concerns, and or questions. Patient Instructions: The patient had an opportunity to ask questions regarding the treatment plan. All questions were answered. Physical exam, labs, and imaging were discussed and reviewed in detail. As well as risks, benefits, and discussion of treatment choices. No major barriers to understanding were identified. The patient expressed understanding and agreement with the above treatment plan. The patient was made aware they should contact our office by phone for worsening of their current condition, the appearance of new symptoms, or with any questions or concerns. Compliance is encouraged with any medications and follow up testing that is ordered. It is a privilege to be allowed the opportunity to participate in? your urological care.? Again, if you have any questions or concerns If you have any questions or concerns please do not hesitate to contact me. The office is [phone]. This note is constructed using voice recognition software. While every effort has been made to ensure accuracy efficiency miner errors may have been included. Yours sincerely, CHARISSE Joseph Coding Level of Care Code Est Pt Level 3 (66969) Complex EM visit Add On G2211 Diagnoses Urinary urgency R39.15 Urinary frequency R35.0 Urinary incontinence, urge N39.41
== END 2025-02-05 13:34 | disposition home or self-care (01) ==
LOC: HO.HUSH 13:01
PROVIDERS: PCP Nurse Practitioner Primary Care; Visit Provider Nurse Practitioner Family
DX: R39.15 Urgency of urination (principal); R35.0 Frequency of micturition; N39.41 Urge incontinence; Z13.9 Encounter for screening, unspecified
CPT/HCPCS: 99213; G2211

== ENCOUNTER → 2025-02-05 13:00 | Outpatient (BNVA) | payer OTHER, SELFPAY | PROVIDERS: PCP Nurse Practitioner Primary Care; Visit Provider Nurse Practitioner Family | DX: R35.0 Frequency of micturition (principal); N39.41 Urge incontinence | CPT/HCPCS: 51798; 81003; 99212 ==

== ENCOUNTER 2025-04-17 09:59 | Outpatient (AMB) | payer OTHER, SELFPAY ==
--- NOTE | 2025-04-17 10:13 | A.OFFVIS_ITS ---
Vital Signs 04/17/25 10:14 Height 5 ft 1 in Weight 322 lb 15.635 oz BMI 61.0 BP 148/104 H Blood Pressure Location Rt brachial Position Sitting Pulse 75 Pulse Source Pulse Oximeter Pulse Oximetry (%) 98 Oxygen Delivery Method Room Air Intake Visit Reasons: Asthma Allergies No Known Allergies Allergy (Verified 04/17/25 10:17) HPI Comments Details: The patient is a 49-year-old woman with known history of asthma, obesity, obstructive sleep apnea who apparently has been developing worsening respiratory symptoms. She was evaluated previously by Pulmonary at [facility]. Apparently her radiation protection technician left. She has been without a doctor now for close to a year. She continues to use the Trelegy inhaler daily. However, she still using her rescue inhaler 3 to 4 times a day because of worsening shortness of breath. She could not tolerate the symptoms and longer and went to the [facility] ED for further evaluation. There she had an x-ray which was personally by me demonstrating increased cardiac silhouette and perihilar congestion. The patient also underwent blood work with evidence of significant eosinophilia. The patient was given 3 days of Lasix in addition to prednisone and to continue her respiratory therapy. However, she has not improved. She continues to struggle with her breathing. She seems very edematous on examination. She also has significant coughing even with minimal exhalation suggesting of a bronchospastic cough. the patient denies having any recent allergy testing. S he also denies any recent cardiac evaluation. She has had previous chest x-rays in the past demonstrating the increased cardiac size. To note the patient has not been using her CPAP. She does state right now with her breathlessness she has a hard time tolerating it. She is open to go back to using her CPAP when she feels better. Explained to her that the CPAP would be very crucial at this time especially since it will help her heart the with the volume overload status. The patient understands and she is going to start using it. She will bring her machine in to the next visit. 02/24/2022 the patient is here for a pulmonary follow-up visit. Over soon better. She is responding well to the Trelegy. We did look at her allergy testing was relatively negative. Her eosinophils are also better. She is having shortness of breath but is likely due to the humidity in the air. Otherwise the Trelegy seems to be working well and she is not using her rescue inhaler more than twice a week. In regards of her CPAP she is using more regularly. The CPAP therapy has been affecting beneficial. She is using for about 4 hours a night. I did encourage her to increase the amount of hours she is using it. She states that usually in the morning she has a hard time with. I did download the data. Her AHI is down to 0.6. I did decrease her maximum pressure from 12-11 cm. After minimum pressure of 4 cm. I am hopeful that she can tolerate lower pressure. She is also volume overloaded. She did take the Lasix although did not work as well. Her kidney functions okay. Will go ahead and give her 2 weeks worth of Lasix again so to allow her to decrease her volume. In the meantime she needs to cut down the salt intake. I gave her some ideas of what to do. Otherwise the patient is doing well will follow-up after her echocardiogram and 4-6 months. 05/08/2022 the patient is here for sick visit. She started developing worsening shortness of breath and chest tightness and wheezing. She has been coughing more. She has been using her rescue inhaler about every 2 hours with partial resolution of the symptoms. Therefore she called in to be evaluated. We did have her undergo blood work including CBC with differential and years her elsewhere better. In addition to that on her allergy testing no significant allergies workup in her IgE levels within normal limits. Therefore biologic therapy at this time went up to wait. Patient does increased wheezing today on examination. Will go ahead start her on prednisone for an asthma exacerbation. Also treated for lower respiratory infection. We then with frequent prednisone use and evidence of chronic bronchitis she will be a good candidate for Daliresp. Will go ahead and start her on low dose of 250 mcg hope of in creasing it to the max dose for therapeutic effect. To continues on Trelegy inhaler. If the patient is not better will repeat her blood work to see her eosinophils have increased when she is up the prednisone. The patient did have an elevated eosinophil count the past. 07/10/2022 the patient is here for pulmonary follow-up visit. She was doing well until couple days ago when she started developing worsening cough again. Nonproductive in nature. She is coughing while in the office. She does respond well to the Trelegy. She also tolerated Daliresp. I am hopeful that improved her respiratory symptoms. If not we can always recheck her eosinophil levels to see if they are elevated. The last time she did not qualify for any biologic therapy. In the meantime she does continue to use her CPAP. CPAP therapy continues to be affecting beneficial. She does use it for more than 4 hours a night. We did review her last chest x-ray from January 2022 demonstrating increased interstitial changes. Typically of pulmonary edema. Patient also has lower extremity edema. She responded well to the diuretics. She may need additional diuresis at this time. The patient needs to monitor closely her sodium intake. The patient did undergo an echocardiogram sometime in the summer although is very suboptimal therefore difficult to assess. 04/30/2023 the patient is here for a pulmonary follow-up visit. The patient overall is feeling okay. She still has the nonproductive cough. Ilvj-fk-ggwcfoza severity. She does respond well to the Tessalon Perles and also to the cough medication. She does respond well to the Trelegy inhaler. Her asthma has been much better controlled. She had a flare of her asthma several weeks ago. She used her nebulizer often and did not require prednisone. Does not look like she is going to need surgery. The patient continues uses CPAP. The CPAP therapy continues to be affecting beneficial. Does try to use it more than 4 hours a night. Not able to download data at this time. Will plan to follow-up in 6 months time or sooner if she develops any new issues. 01/05/2024 the patient is here for a pulmonary follow-up visit. Overall she is doing very well. She is using CPAP every night. Sleep CPAP therapy continues to be affecting beneficial. Her [employer] reliable respiratory. She is wondering about a different mask because sometimes bothersome nasal bridge. I did provide her with a small F30 mask she will try and see if his worth switching over to this mask. If it is she can not us know and I can send a script to her [employer] company. I will also request access to her machine through her [employer] company. We can adjusted accordingly. She is looking having bariatric surgery. She is getting close to getting all the arrangements done. She is pretty excited. At this point will provide her with support in order to pursue for surgery. From a respiratory status the patient appears to be doing well on current respiratory regimen. Recently she did require prednisone antibiotics for recent flare-up but at this point she is doing better on the Trelegy 100. We had decreased the dose the last time. At this point will keep her on that dose. 02/09/2024 the patient is here for a pulmonary follow-up visit. She is doing okay. She has been noticing worsening shortness of breath and chest tightness and wheezing. Therefore she has been using her nebulizer every 4 hours. The patient is starting to feel better. She still has a little wheezing so I will give her a small short course of Medrol. Hopefully that improves her symptoms. We can also optimize her respiratory therapy by increasing her Trelegy to the 200 mcg dose. The patient has been using her CPAP. Continues be affecting beneficial. She does use it for more than 4 hours. I did provide her with a new mask the last time and she did have some difficulties putting it on. I did teach her how to do it so she can try. Although she still may go back to her o ld mask. She will let me know which mask she prefers. In the meantime she will try. If the patient has any worsening symptoms she will call. Also she should have a chest x-ray whenever able. Will follow-up in 4-6 months. 07/27/2024 the patient is here for a pulmonary follow-up visit. The patient overall has been having hard time with her asthma. She has been having increased wheezing and coughing. Positive sick contacts. She has been tolerating the Trelegy and has been helping. She was supposed of chest x-ray but she has not had 1 as of yet. She continues uses CPAP every night. CPAP therapy continues to be affecting beneficial. Will go ahead and send her additional medications to the pharmacy. I worry about her sugars and diabetes. Therefore the Medrol Sanya is a little easier for her to take. If she has any worsening symptoms prior to that she should get her x-ray and call. 10/20/2024 the patient is here for pulmonary follow-up visit. Overall she is doing okay. She has been tried uses CPAP more. The CPAP therapy has been very affecting beneficial for her. Although she needs to be able to use it 4 hours a night. Her respiratory inhalers are okay. She did not get the Trelegy so therefore she had been using Breo and Incruse. Will make sure that she has all her medications at the pharmacy. In addition to that we did look at a previous chest x-ray. She did have an increased cardiac size. After that she did have an echo which was reassuring. Will go ahead and repeat her x-ray at this time. She continues to have dyspnea on exertion. Rltd-vh-wyzqscog severity. Part due to her body habitus. She recently started on weight loss injections to help with prediabetes and also help with the weight loss. This should also help her underlying comorbidities. 04/17/2025 the patient is here for pulmonary follow-up visit. Overall she is feeling well. Although her blood pressure is indeed elevated. She states that she has had elevated blood pressure but she does not have any symptoms. Never gets headaches or any other complaints. As far as his CPAP she continues uses CPAP with very good effect. The therapy has been affecting beneficial. She does use the machine more than 4 hours a night. She started more than 5 years. Will go ahead and request a replacement machine at this time from her [employer] company, [employer]. The patient also continues with respiratory medications with good effect. Has not required her rescue inhaler and has not had to use any prednisone. Her blood pressure was elevated with a diastolic 104. We did recheck it diastolic did go down to 98. The patient appears to be volume overloaded. Will give her 3 days of Lasix. We did talk about reframing for many sodium intake. The patient also had an x-ray that was a repeat x-ray that she had back in October still demonstrating increased cardiac silhouette. In view of the elevated blood pressure will go ahead and request an echo. The patient may benefit from a cardiology evaluation. Also give her the 3 days of diuretic to see if this helps her as well to decrease the pressure. In the meantime she is going to monitor her blood pressure at home and she is going to follow-up with her primary care doctor at [facility]. [facility] Medical History Asthma-COPD overlap syndrome Anxiety Depression Bipolar disorder Hypertension Asthma Social History (Reviewed 04/17/25 @ 10:18 by Fani Adamson [facility]) Alcohol intake: never Patient Tobacco Use Status: Never used Tobacco Review of Systems Const Denies daytime sleepiness, Reports difficulty sleeping and Denies fever(s) Eyes Denies change in vision ENT Reports nasal congestion and Reports nasal discharge Card Denies chest pain, Denies dyspnea and Reports dyspnea on exertion Resp Reports chest congestion, Reports cough, Denies hemoptysis, Denies dyspnea, Reports dyspnea on exertion, Denies stridor and Reports wheezing GI Reports no additional complaints Musc Reports as per HPI, Reports abnormal gait, Reports myalgias and Reports limited range of motion Skin/Breast Denies rash Neuro Reports no additional complaints and Reports abnormal gait Aller/Immun Reports wheezing Physical Exam Vital Signs: Last Vital Signs Pulse 75 04/17/25 10:14 BP 148/104 H 04/17/25 10:14 Pulse Ox 98 04/17/25 10:14 Oxygen Delivery Method Room Air 04/17/25 10:14 BMI result Body Mass Index 61.0 Const General: alert Nutritional Appearance: obese morbidly obese Eyes General: appearance normal, both eyes and all related structures Neck Neck: Yes normal visual inspection, Yes no lymphadenopathy and Yes supple Chest Chest palpation & inspection: normal inspection of the chest Resp Auscultation: no crackles and diminished lung sounds Cardio Rhythm: regular rhythm Heart sounds: S1 normal heart sound present and S2 normal heart sound present GI Inspection: Yes normal to inspection Extrem General: No clubbing, No cyanosis and Yes edema Right lower extremity: lower leg Details: other (boot) Assessment & Plan Assessment & Plan (1) Cardiomegaly: Code(s): I51.7 - Cardiomegaly Category: Medical (2) SHAJI (obstructive sleep apnea): Code(s): G47.33 - Obstructive sleep apnea (adult) (pediatric) Category: Medical (3) Asthma: Comment: With evidence of eosinophilia Code(s): J45.909 - Unspecified asthma, uncomplicated Category: Medical Qualifiers: Asthma severity: severe Asthma persistence: persistent Asthma complication type: with acute exacerbation Qualified Code(s): J45.51 - Severe persistent asthma with (acute) exacerbation Plan continue Daliresp 500mcg continue Breo 200mcg continue Incruse CXR JULES as needed benzonatate as needed for cough short-acting beta agonist as needed continue APAP, adjusted to 4-11, current PAP is older than 5 years, needs a replacement machine at this time ECHO Needs to f/u with PCP regarding the uncontrolled HTN Lasix x 3 days Low Na diet follow-up in 6-8 months Orders: Orders CA echo transthoracic complete Today I27.20 - Pulmonary hypertension, unspecified Medications: New furosemide (Lasix) 20 mg PO DAILY 3 tabs 0RF Coding Level of Care Code Est Pt Level 4 (65245) Complex EM visit Add On G2211 Diagnoses Cardiomegaly I51.7 SHAJI (obstructive sleep apnea) G47.33 Severe persistent asthma with acute exacerbation J45.51 Asthma severity: severe Asthma persistence: persistent Asthma complication type: with acute exacerbation Time Spent (min) 18
[2025-04-17 10:14] VITALS: BP 148/104; PULSE 75; O2SAT 98; BMI 61.0
--- OUTSIDE RECORDS SUMMARY | 2025-04-17 11:44 | XMS_ITS ---
Author Name [facility] Organization Unknown Care Team Organization Name Specialty Phone Email Start Date End Da te [facility] 12/14/202203/27 [facility] 06/16/2022
== END 2025-04-17 10:46 | disposition home or self-care (01) ==
LOC: HO.HPS 10:00
PROVIDERS: PCP Nurse Practitioner Primary Care; Visit Provider Hospitalist
DX: I51.7 Cardiomegaly (principal); G47.33 Obstructive sleep apnea (adult) (pediatric); J45.51 Severe persistent asthma with (acute) exacerbation
CPT/HCPCS: 99214

== ENCOUNTER → 2025-04-17 09:59 | Outpatient (BNVA) | payer OTHER, SELFPAY | PROVIDERS: PCP Nurse Practitioner Primary Care; Visit Provider Hospitalist | DX: J45.909 Unspecified asthma, uncomplicated (principal); I51.7 Cardiomegaly; J45.51 Severe persistent asthma with (acute) exacerbation; G47.33 Obstructive sleep apnea (adult) (pediatric); Z99.89 Dependence on other enabling machines and devices; E66.01 Morbid (severe) obesity due to excess calories; Z68.44 Body mass index [BMI] 60.0-69.9, adult | CPT/HCPCS: 99212 ==

== ENCOUNTER → 2025-06-14 10:48 | Outpatient (REF) | payer OTHER, SELFPAY ==
--- NOTE | 2025-06-14 10:52 | CA_ITS ---
Transthoracic Echocardiogram Patient (Last, First, Middle): Mariaelena Green J Gender: Female Date of : 1975 Age: 49 Procedure Date: 06/14/2025 Procedure Type: Transthoracic Echocardiogram Location: OP Height: 154.94 cm Weight: 146.06 kg BSA: 2.31 m2 Heart Rate: bpm BP: 140 / 90 mmHg Correctional Case Records Supervisor: TO Referring MD: Juice Major MD Desktop Support Consultant: Sebastian Goldman MD Symptoms: I27.20 - Pulmonary hypertension, unspecified Study Quality: Adequate with contrast ECG Rhythm: Sinus Conclusions: - Essentially normal study with no clear evidence of pulmonary hypertension Findings Procedure Information Contrast agent, definity, is being given per protocol without apparent complications. Left Ventricle Normal left ventricular size, thickness, and systolic function. The visually estimated ejection fraction is between 60-65%. Diastolic function is normal for age. Right Ventricle Normal right ventricular cavity size and systolic function. Atria The left atrium is likely dilated. There is no evidence of interatrial shunt. The right atrium is normal in size. Aortic Valve Normal aortic valve structure and function. There is no aortic valve stenosis. There is no aortic valve regurgitation. Mitral Valve Normal mitral valve structure and function. There is trace mitral valve regurgitation. There is no mitral valve stenosis. Pulmonic Valve The pulmonic valve is likely normal. Tricuspid Valve Normal tricuspid valve structure. Tricuspid regurgitation envelope is inadequate for calculation of right ventricular systolic pressure. Normal right atrial pressure. Great Vessels All visible segments of the aorta are normal in size. The pulmonary artery was not well visualized. Venous The inferior vena cava is normal in size. Pericardium/Pleural There is no evidence of pericardial effusion. Measurements 2D Linear Measurements IVSd: 1.10 0.6-0.9/0.6-1.0 cm LVIDd: 5.09 3.9-5.3/4.2-5.9 cm LVIDd Index: 2.20 2.4-3.2/2.2-3.1 cm/m2 LVIDs: 3.43 2.0-3.6 cm LVPWd: 1.01 0.7-1.1 cm LA Diam: 4.40 2.7-3.8/3.0-4.0 cm LAIDs Index: 1.90 1.5-2.3 cm/m2 LV Mass: 265.77 67-162/88-224 g LV Mass Index: 115.05 43-95/49-115 g/m2 LVOT Diam: 2.20 3.0+(-)1.3 cm 2D Systolic Function EF 4C: 57.50 >55% EF 2C: 64.40 >55% EF BiP: 61.90 >55% Mitral Valve MV Pk E: 0.64 MV PK A: 0.50 MV Decel Time: 154.00 E/A: 1.30 E'Lateral: 8.92 E'Medial: 7.94 E/E' Med: 8.10 E/E' Lat: 7.20 PHT: 45.00 MVA PHT: 4.89 Decel Hardeman: 4.18 Aortic Valve AoV Pk Tarun: 1.72 AoV Mn Tarun: 1.11 AoV VTI: 0.34 AoV Pk Grad: 12.00 Aov Mn Grad: 6.00 RANDY Cont.VTI: 2.74 LVOT LVOT Pk Tarun: 1.27 LVOT Mn Tarun: 0.84 LVOT VTI: 0.24 LVOT Pk Grad: 6.00 LVOT Mn Grad: 3.00 LVOT Diam: 2.20 LVOT Area: 3.80 Diastolic Function MV Pk E: 0.64 MV Pk A: 0.50 E/A: 1.30 E'Medial: 7.94 E/E' Med: 8.10 E' Laterial: 8.92 E/E' Lat: 7.20 Right Ventricle TAPSE (mm): 29.50 TVS' Tarun: 15.10 Tricuspid Valve RA Press: 3.00 Great Vessels Aorta Sinus of Valsalva: 3.09 2.0-3.5 cm Ao Asc: 2.80 2.1-3.4 cm Updated in Other Vendor System with Status of Final Sebastian Goldman MD electronically signed on 06/14/2025 2:56:09 PM with status of Final
== END ==
LOC: HO.CARD 10:48
PROVIDERS: PCP Internal Medicine; Visit Provider Hospitalist
DX: I27.20 Pulmonary hypertension, unspecified (principal)
CPT/HCPCS: 93306; Q9957

== ENCOUNTER → 2025-06-14 10:52 | Outpatient (BNV) | payer OTHER, SELFPAY | PROVIDERS: PCP Internal Medicine; Visit Provider Internal Medicine Cardiovascular Disease | DX: I27.20 Pulmonary hypertension, unspecified (principal) | CPT/HCPCS: 93306 ==

== ENCOUNTER 2025-07-30 13:31 | Outpatient (REF) | payer OTHER, SELFPAY ==
--- OUTSIDE RECORDS SUMMARY | 2025-07-30 17:28 | XMS_ITS | Encounter Summary ---
Author Organization [facility] Prior to 06/09/2024 Address [address] [place] [address] Care Team Providers Care Honey Processor Name Role Phone Valentine Walters MD Primary Care Provider U Kate Martinez MD Primary Care Provider [phone] Reason for Visit * Reason Onset Date Comments Faxed Order 03/11/2021 [facility] Encounter Details Date Type Department Care Team Description 03/11/2021 Telephone Adult Medicine B - [place] [address] [place] [address] Valentine Walters MD Faxed Order ([facility] ) Social History Tobacco Use Types Packs/Day Years [...] have Coronavirus / COVID-19? No / Unsure 02/11/2021 8:08 AM EDT documented as of this encounter Miscellaneous Notes * Telephone Encounter - Fany Ash M.A. - 04/04/2021 9:[address] Adames out of the office will be back Wednesday to sign. Tiffani was notified of this * Telephone Encounter - Kevin Larios - 04/04/2021 8:41 AM EDT Darline Merlos calling checking on status of referral for [facility] for testing for hearing aids pls contact Darline at [phone] * Telephone Encounter - Adrianna Peña - 03/11/2021 4:15 PM EDT Faxed order received by [facility]. Order placed in Dr. Adames's bin for signature. Please fax back to [phone] after completion. documented in this encounter Plan of Treatment Not on file documented as of this encounter Visit Diagnoses Not on filedocumented in this encounter Care Teams Honey Processor Relationship Specialty Start Date End Date Valentine Walters MD PCP - General Internal Medicine 08/24/1807/09 Kate Phillip MD PCP - General Internal Medicine 07/22/22 documented as of this encounter
--- OUTSIDE RECORDS SUMMARY | 2025-07-30 17:28 | XMS_ITS | Encounter Summary ---
Author Organization [employer] [facility] Prior to 06/09/2024 Address [address] [place] [address] Care Team Providers Care Drainage Inspector Name Role Phone Valentine Walters MD Primary Care Provider U miguelitoailKate Hood MD Primary Care Provider [phone] Encounter Details Date Type Department Care Team Description 04/30/2022 Orders Only Medical Records [address] [place] [id number] Abstract, Provider Screening mammogram for breast cancer [...] cancer documented in this encounter Care Teams Drainage Inspector Relationship Specialty Start Date End Date Valentine Walters MD PCP - General Internal Medicine 08/24/1807/09 Kate Phillip MD PCP - General Internal Medicine 07/22/22 documented as of this encounter
--- OUTSIDE RECORDS SUMMARY | 2025-07-30 17:28 | XMS_ITS | Encounter Summary ---
Author Organization [employer] [facility] Prior to 06/09/2024 Address [address] [place] [address] Care Team Providers Care Mainframe Systems Engineer Name Role Phone Valentine Walters MD Primary Care Provider U miguelitoailimelda Kate Phillip MD Primary Care Provider [phone] Encounter Details Date Type Department Care Team Description 07/10/2022 Special Delivery Carrier Report Medical Records [address] [place] [id number] Juice Major MD Social History Tobacco Use [...] on filedocumented in this encounter Care Teams Mainframe Systems Engineer Relationship Specialty Start Date End Date Valentine Walters MD PCP - General Internal Medicine 08/24/1807/09 Kate Phillip MD PCP - General Internal Medicine 07/22/22 documented as of this encounter
--- OUTSIDE RECORDS SUMMARY | 2025-07-30 17:28 | XMS_ITS | Encounter Summary ---
Author Organization [facility] Prior to 06/09/2024 Address [address] [place] [address] Care Team Providers Care Account Coordinator Name Role Phone Valentine Walters MD Primary Care Provider U Kate Martinez MD Primary Care Provider [phone] Encounter Details Date Type Department Care Team Description 02/24/2022 Sleeve Bottom Feller Report Medical Records [address] [place] [id number] Juice Major MD Social History Tobacco Use [...] on filedocumented in this encounter Care Teams Account Coordinator Relationship Specialty Start Date End Date Valentine Walters MD PCP - General Internal Medicine 08/24/1807/09 Kate Phillip MD PCP - General Internal Medicine 07/22/22 documented as of this encounter
--- OUTSIDE RECORDS SUMMARY | 2025-07-30 17:28 | XMS_ITS | Encounter Summary ---
Author Organization [facility] Prior to 06/09/2024 Address [address] [place] [address] Care Team Providers Care Administrative Resident Name Role Phone Valentien Walters MD Primary Care Provider U Kate Martinez MD Primary Care Provider [phone] Reason for Visit * Reason Onset Date Comments LAB WORK 02/25/2022 Encounter Details Date Type Department Care Team Description 02/25/2022 Telephone General Surgery - [address] [place] [address] Riana Jordan MS,JOE,BELKYS LAB WORK [...] In the last 10 days, have ken u been in contact with someone who was confirmed or suspected to have Coronavirus/COVID-19? Unable to assess 02/25/2022 7:49 AM EDT documented as of this encounter Miscellaneous Notes * Telephone Encounter - Riana Jordan MS, RDN,BELKYS - 02/25/2022 1:49 PM EDT Please re-order bariatric labs as patient's have documented in this encounter Plan of Treatment Not on file documented as of this encounter Visit Diagnoses Not on filedocumented in this encounter Care Teams Administrative Resident Relationship Specialty Start Date End Date Valentine Walters MD PCP - General Internal Medicine 08/24/1807/09 Kate Phillip MD PCP - General Internal Medicine 07/22/22 documented as of this encounter
--- OUTSIDE RECORDS SUMMARY | 2025-07-30 17:28 | XMS_ITS | Encounter Summary ---
Author Organization [employer] [facility] Prior to 06/09/2024 Address [address] [place] [address] Care Team Providers Care School Guard Name Role Phone Valentine Walters MD Primary Care Provider U Kate Martinez MD Primary Care Provider [phone] Reason for Visit * Reason Onset Date Comments DME Request 02/16/2020 Encounter Details Date Type Department Care Team Description 02/16/2020 Telephone Pulmonology - [place] [address] [facility] [address] [place] [phone] [facility] [address] [place] [address] DME Request Social History Tobacco Use Types [...] 10:20 AM EDT Spoke with Ze at [employer] and he stated that they sent the machine to patient on 02/01/20. I called patient and she stated she hasn't received it so I advised her to clear this up with reyna. * Telephone Encounter - MARLEEN Allen - [...] on filedocumented in this encounter Care Teams School Guard Relationship Specialty Start Date End Date Valentine Walters MD PCP - General Internal Medicine 08/24/1807/09 Kate Phillip MD PCP - General Internal Medicine 07/22/22 documented as of this encounter
--- OUTSIDE RECORDS SUMMARY | 2025-07-30 17:29 | XMS_ITS | Encounter Summary ---
Author Organization [facility] Prior to 06/09/2024 Address [address] [place] [address] Care Team Providers Care Shingle Shearing Machine Operator Name Role Phone Kate Phillip MD Primary Care Provider [phone] Reason for Visit * Reason Comments E-prescribe Rx Request Encounter Details Date Type Department Care Team Description 09/27/2023 Refill Bariatric Surgery [address] [place] [phone] Alban Garcia MD [address] [place] [address] [address] [place] [address] E-prescribe Rx Request Social History Tobacco Use [...] on filedocumented in this encounter Care Teams Shingle Shearing Machine Operator Relationship Specialty Start Date End Date Kate Phillip MD PCP - General Internal Medicine 07/22/22 documented as of this encounter
--- OUTSIDE RECORDS SUMMARY | 2025-07-30 17:29 | XMS_ITS | Encounter Summary ---
Author Organization [employer] [facility] Prior to 06/09/2024 Address [address] [place] [address] Care Team Providers Care Color Finisher Name Role Phone Kate Phillip MD Primary Care Provider [phone] Encounter Details Date Type Department Care Team Description 03/23/2023 Refill Internal Medicine - [address], [address] [place] [address] Kate Phillip MD [address] [place] [phone] Social History Tobacco Use Types Packs/Day [...] on filedocumented in this encounter Care Teams Color Finisher Relationship Specialty Start Date End Date Kate Phillip MD PCP - General Internal Medicine 07/22/22 documented as of this encounter
--- OUTSIDE RECORDS SUMMARY | 2025-07-30 17:29 | XMS_ITS | Encounter Summary ---
Author Organization [facility] Prior to 06/09/2024 Address [address] [place] [address] Care Team Providers Care Highway Maintenance Crew Worker Name Role Phone Kate Phillip MD Primary Care Provider [phone] Encounter Details Date Type Department Care Team Description 10/27/2023 Orders Only Medical Records [address] [place] [address] Martina Mcgowan OD Social History Tobacco Use [...] on filedocumented in this encounter Care Teams Highway Maintenance Crew Worker Relationship Specialty Start Date End Date Kate Phillip MD PCP - General Internal Medicine 07/22/22 documented as of this encounter
--- OUTSIDE RECORDS SUMMARY | 2025-07-30 17:29 | XMS_ITS | Encounter Summary ---
Author Organization [employer] [facility] Prior to 06/09/2024 Address [address] [place] [address] Care Team Providers Care General Road Supervisor Name Role Phone Valentine Walters MD Primary Care Provider [facility] Kate Phillip MD Primary Care Provider [phone] Encounter Details Date Type Department Care Team Description 08/25/2018 Release of Information Medical Records [address] [place] [id number] Abstract, Provider Social History Tobacco Use Types [...] on filedocumented in this encounter Care Teams General Road Supervisor Relationship Specialty Start Date End Date Valentine Walters MD PCP - General Internal Medicine 08/24/1807/09 Kate Phillip MD PCP - General Internal Medicine 07/22/22 documented as of this encounter
--- OUTSIDE RECORDS SUMMARY | 2025-07-30 17:29 | XMS_ITS | Encounter Summary ---
Author Organization [facility] Prior to 06/09/2024 Address [address] [place] [address] Care Team Providers Care Radiator Tester Name Role Phone Valentine Walters MD Primary Care Provider U Kate Martinez MD Primary Care Provider [phone] Reason for Visit * Reason Onset Date Comments APPOINTMENT 10/07/2019 Encounter Details Date Type Department Care Team Description 10/07/2019 Telephone Adult Medicine [address] [address] Stephanie Delgado FNP [address] [place] [address] APPOINTMENT Social History Tobacco Use Types Packs/Day [...] on filedocumented in this encounter Care Teams Radiator Tester Relationship Specialty Start Date End Date Valentine Walters MD PCP - General Internal Medicine 08/24/1807/09 Kate Phillip MD PCP - General Internal Medicine 07/22/22 documented as of this encounter
--- OUTSIDE RECORDS SUMMARY | 2025-07-30 17:29 | XMS_ITS | Encounter Summary ---
Author Organization [facility] Prior to 06/09/2024 Address [address] [place] [address] Care Team Providers Care Yarn Skeins Examiner Name Role Phone Kate Phillip MD Primary Care Provider [phone] Reason for Visit * Reason Onset Date Comments VNA Call 02/05/2023 Encounter Details Date Type Department Care Team Description 02/05/2023 Telephone Internal Medicine - [address], [address] [place] [address] Kate Phillip MD [address] [place] [phone] VNA Call Social History Tobacco Use Types [...] Miscellaneous Notes * Telephone Encounter - Susana Foster - 02/05/2023 2:15 PM EDT JULIANE Vna called re: Patient went to [facility] ER For right knee pain At the er noted fluid in right knee Will schedule follow up * Telephone Encounter - Demetria M Robi - 02/05/2023 11:45 AM EDT Vna called re: Patient went to [facility] ER For right knee pain At the er noted fluid in right knee Will schedule follow up documented in this encounter Plan of Treatment Not on file documented as of this encounter Visit Diagnoses Not on filedocumented in this encounter Care Teams Yarn Skeins Examiner Relationship Specialty Start Date End Date Kate Phillip MD PCP - General Internal Medicine 07/22/22 documented as of this encounter
--- OUTSIDE RECORDS SUMMARY | 2025-07-30 17:29 | XMS_ITS | Encounter Summary ---
Author Organization [facility] Prior to 06/09/2024 Address [address] [place] [address] Care Team Providers Care Manager Community Development Name Role Phone Valentine Walters MD Primary Care Provider U Kate Martinez MD Primary Care Provider [phone] Reason for Visit * Reason Onset Date Comments refill request 05/09/2021 Encounter Details Date Type Department Care Team Description 05/09/2021 Refill Gastroenterology - [address] [place] [address] Lakeisha Jacob DScPAS refill request Social History [...] pylori) documented in this encounter Care Teams Manager Community Development Relationship Specialty Start Date End Date Valentine Walters MD PCP - General Internal Medicine 08/24/1807/09 Kate Phillip MD PCP - General Internal Medicine 07/22/22 documented as of this encounter
--- OUTSIDE RECORDS SUMMARY | 2025-07-30 17:29 | XMS_ITS | Encounter Summary ---
Author Organization [employer] [facility] Prior to 06/09/2024 Address [address] [place] [address] Care Team Providers Care Egg Breaking Machine Operator Name Role Phone Kate Phillip MD Primary Care Provider [phone] Reason for Visit * Reason Onset Date Comments refill request 05/15/2024 Encounter Details Date Type Department Care Team Description 05/15/2024 Refill Internal Medicine - [address], [address] [place] [address] Kate Phillip MD [address] [place] [phone] refill request Social History Tobacco Use [...] 0.54 04/06/2024 * Telephone Encounter - Kevin Fraireau - 05/15/2024 12:34 PM EDT HETAL 04/06/24 documented in this encounter Plan of Treatment Not on file documented as of this encounter Visit Diagnoses Diagnosis Type 2 diabetes mellitus without complication, without long-term current use of insulin (HCC) documented in this encounter Care Teams Egg Breaking Machine Operator Relationship Specialty Start Date End Date Kate Phillip MD PCP - General Internal Medicine 07/22/22 documented as of this encounter
--- OUTSIDE RECORDS SUMMARY | 2025-07-30 17:29 | XMS_ITS | Encounter Summary ---
Author Organization [employer] [facility] Prior to 06/09/2024 Address [address] [place] [address] Care Team Providers Care Proctologist Name Role Phone Kate Phillip MD Primary Care Provider [phone] Encounter Details Date Type Department Care Team Description 04/06/2024 Telephone Internal Medicine - [place] [address] [facility], [address] [place] [address] Kate Phillip MD [address] [place] [phone] Social History Tobacco Use Types Packs/Day [...] on filedocumented in this encounter Care Teams Proctologist Relationship Specialty Start Date End Date Kate Phillip MD PCP - General Internal Medicine 07/22/22 documented as of this encounter
--- OUTSIDE RECORDS SUMMARY | 2025-07-30 17:29 | XMS_ITS | Encounter Summary ---
Author Organization [employer] [facility] Prior to 06/09/2024 Address [address] [place] [address] Care Team Providers Care Bus Dispatcher Interstate Name Role Phone Kate Phillip MD Primary Care Provider [phone] Reason for Visit * Reason Onset Date Comments Error 04/09/2023 Encounter Details Date Type Department Care Team Description 04/09/2023 Telephone Internal Medicine [address], [address] [place] [address] Kate Phillip MD [address] [place] [phone] Error Social History Tobacco Use Types Packs/Day Years [...] on filedocumented in this encounter Care Teams Bus Dispatcher Interstate Relationship Specialty Start Date End Date Kate Phillip MD PCP - General Internal Medicine 07/22/22 documented as of this encounter
--- OUTSIDE RECORDS SUMMARY | 2025-07-30 17:29 | XMS_ITS | Clinical Summary ---
Author Organization [facility] [facility] Prior to 06/09/2024 Address [address] [place] [address] Care Team Providers Care Master Control Engineer Name Role Phone Kate Phillip MD Primary Care Provider [phone] Allergies No known active allergies Medications Medication Sig Dispensed Refills Start Date End Date Status triamcinolone (KENALOG) 0.025 % creamIndications:Hyp ertension, unspecified type,Psoriasis,Acute UTI Apply a small amount to affected area twice daily X 2 wks 30 g 1 03/01/2019 Active sodium chloride (OCEAN) 0.65 % nasal spray 1 [place] by Nasal route daily. Dispense 1 bottle with 5 refills Use 1 spray in each notril daily 120 mL 5 09/01/2019 Active Triamcinolone Acetonide (Nasacort Allergy 24HR) 55 MCG/ACT AerosolIndications:O verlap syndrome (HCC),Moderate persistent asthma without complication,SHAJI on CPAP,Allergic rhinitis due to pollen, unspecified seasonality,Bipolar affective disorder, remission status unspecified (HCC) 55 mcg by Nasal route daily. 1 Bottle 0 12/26/2020 Active clobetasol (TEMOVATE) 0.05 % cream Apply sparingly to rash 2 times daily for no more than 2-3 weeks to avoid skin atrophy; then use on the weekends only 45 g 0 07/10/2021 Active albuterol (PROVENTIL) (2.5 MG/3ML) 0.083% nebulizer solution TAKE 1 VIAL BY NEBULIZATION EVERY 4 HOURS NEEDED FOR WHEEZING FOR UP TO 180 DAYS. 180 mL 1 10/24/2021 Active Fluticasone-Umeclidi n-Vilant (Trelegy Ellipta) 200-62.5-25 MCG/INH AEROSOL POWDER,BREATH ACTIVATED Inhale 1 Puff into the lungs daily. 30 Each 5 12/05/2021 Active ProAir HFA 108 (90 Base) MCG/ACT Aero Soln INHALE 2 PUFFS INTO THE LUNGS EVERY 4 HOURS NEEDED FOR OTHER (COUGH, WHEEZING, SHORTNESS OF BREATH). 8.5 g 0 07/06/2022 Active montelukast (SINGULAIR) 10 MG tablet TAKE 1 TABLET BY MOUTH DAILY. 90 Tablet 0 12/25/2022 Active Roflumilast 500 MCG Tab Take by mouth. 0 Active loratadine (CLARITIN) 10 MG tabletIndications:Mo derate persistent asthma with (acute) exacerbation Take 1 Tablet by mouth daily. 30 Tablet 0 01/07/2023 Active ibuprofen (ADVIL,MOTRIN) 800 MG tablet Take 1 Tablet by mouth every 8 hours as needed for Pain. 30 Tablet 0 02/25/2023 Active acetaminophen (TYLENOL) 500 MG tablet Take 1 Tablet by mouth every 6 hours as needed for Pain. 30 Tablet 2 02/25/2023 Active buPROPion (WELLBUTRIN SR) 150 MG 12 hr tabletIndications:An xiety and depression TAKE 1 TABLET BY MOUTH 2 TIMES DAILY. 60 Tablet 0 03/02/2023 Active sumatriptan (IMITREX) 50 MG tablet May repeat dose once after 2 hours, if needed. 4 Tablet 0 04/14/2023 Active ONE TOUCH ULTRASOFT LANCETS Misc Test blood sugars 3 times a day Dx: E11.9 300 Each 11 04/14/2023 Active Rozerem 8 MG tablet 0 04/12/2023 Activ e ONE TOUCH BASIC STRIPSIndications:Ty pe 2 diabetes mellitus without complication, without long-term current use of insulin (HCC) Apply 1 Strip topically daily. DX: E11.9 100 Each 1 07/23/2023 Active Elastic Bandages & Supports (Knee Brace Adjustable Hinged) MiscIndications:Prim agueda osteoarthritis of right knee 1 Units by Does not apply route continuous. 1 Each 0 09/16/2023 Active Ferrous Sulfate 324 (65 Fe) MG Tab EC TAKE 1 TABLET BY MOUTH 2 TIMES DAILY 60 Tablet 0 09/24/2023 Active Cholecalciferol (Vitamin D) 50 MCG (1999) Cap Take 1 Capsule by mouth daily. 30 Capsule 2 01/17/2024 Active metformin (GLUCOPHAGE-XR) 500 MG 24 hr tablet TAKE 1 TABLET BY MOUTH DAILY (WITH BREAKFAST). 30 Tablet 5 01/25/2024 Active omeprazole (PRILOSEC) 20 MG capsuleIndications:G astroesophageal reflux disease, unspecified whether esophagitis present Take 1 Capsule by mouth 2 times daily. 180 Capsule 1 02/17/2024 Active Heartburn Relief 10 MG tablet TAKE 1 TABLET BY MOUTH 2 TIMES DAILY. 180 Tablet 0 03/08/2024 Active enalapril (VASOTEC) 20 MG tablet Take 2 Tablets by mouth daily. 60 Tablet 5 04/06/2024 Active amlodipine (NORVASC) 2.5 MG tablet Take 1 Tablet by mouth daily for 180 days. 30 Tablet 5 04/06/2024 Active Incontinence Supply Disposable ([employer] Incontinence Pads) Misc 1 Each by Does not apply route daily. 100 Each 11 04/13/2024 Active topiramate (TOPAMAX) 50 MG tabletIndications:Ch ronic nonintractable headache, unspecified headache type TAKE 1 TABLET BY MOUTH AT BEDTIME. 30 Tablet 1 04/20/2024 Active Dulaglutide (Trulicity) 0.75 MG/0.5ML Solution Pen-injector Inject 0.75 mg into the skin once a week. 2 mL 4 04/30/2024 Active Blood Glucose Monitoring Suppl (ONE TOUCH ULTRA 2) w/Device KitIndications:Type 2 diabetes mellitus without complication, without long-term current use of insulin ([facility]) 1 Device by Does not apply route Once. 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 [facility] CPAP Polysomnogram: Date 02/14/2009; Wt 240#; BMI 47; SE 99%; SM 99%; REM 10%; CPAP @ 6 -> AHI 0.3; average oxygen saturation 93%. - Obstructive Sleep Apnea - severe; mostly hypopneas and obstructive apneas; with sleep related hypoventilation by 2019 home sleep apnea test. Post-nasal drainage 12/01/2018 Allergic rhinitis due to pollen 12/02/19 19 Morbid obesity 11/29/2018 HTN (hypertension) 08/24/2018 Asthma 08/24/2018 Bipolar disorder 08/24/2018 Overview: Followed by Dr Nahum Collins at [facility] family and Counselling Anxiety 08/24/2018 Depression 08/24/2018 Resolved Problems Problem Noted Date Resolved Date Need for prophylactic vaccin ation against Streptococcus pneumoniae (pneumococcus) 12/01/2018 05/05/2019 Bipolar affective disorder 12/01/201805/05 Prediabetes 11/29/2018 03/06/2022 Immunizations Name Administration Dates Next Due COVID-19 (Moderna) PT Reported 12/02/2020,2020 Influenza Flu (PT Reported) 07/28/2021 Pneumoccoccal(Adult) Polysaccharide PPSV23 10/10 Pneumococcal Conjugate PCV-13 12/01/2018 Tdap 10/11/2019 Twinrix 10/11/2019 Typhoid 10/11/2019 Family History Medical History Relation Name Comments Diabetes Father Diabetes Paternal Grandmother Diabetes Uncle CA Breast Negative Hx Relation Name Status Comments Father Paternal [...] file Not on file Not on file Last Filed Vital Signs Vital Sign Reading Time Taken Comments Blood Pressure 139/80 04/06/2024 9:52 AM EDT Pulse 94 04/06/2024 9:52 AM EDT Temperature 36.5 C (97.7 F) 04/06/2024 9:52 AM EDT Respiratory Rate 16 12/05/2021 9:00 AM EDT Oxygen Saturation 97% 04/06/2024 9:52 AM EDT Inhaled Oxygen Concentration - - Weight 156 kg (344 lb) 04/06/2024 9:52 AM EDT Height 152.4 cm (5') 04/06/2024 9:52 AM EDT Body Mass Index 67.18 04/06/2024 9:52 AM EDT Plan of Treatment Health Maintenance Due Date Last Done Comments DIABETES: ANNUAL FOOT EXAM 11/16/1995 DIABETES: ANNUAL URINE PROTE IN TEST (MICROALBUMIN) 11/16/1995 CERVICAL CANCER SCREENING 1998 MAMMOGRAM 04/29/2023 04/29/2022, 01/07, 06/30/2019, Additional history exists DIABETES/HEART DISEASE: WAYNE AL CHOLESTEROL (LDL) 06/15/2024 06/15/2023, 01/12/2023, 03/04/2022, Additional history exists DIABETES: BLOOD SUGAR CONTRO L TEST (HGBA1C) 07/07/2024 04/06/2024, 06/15/2023, 01/12/2023, Additional history exists BMI CHECK/ADVISE 08/09/2024 04/06/2024, , 04/29/2023, Additional history exists DEPRESSION SCREENING/FOLLOWUP 08/09/2024, 03/01/2023, 12/04/2022, Additional history exists SOCIAL NEEDS SCREENING 08/09/2024 01/19/2022 (Comple cheli) DIABETES: ANNUAL EYE EXAM 10/25/2024 10/26/2023 BASELINE HEALTH EXAM 40-64 01/07/2025 01/07/2023, Covid-19 Vaccine (3 - 2022-2 4 season) 2025 12/02/2020, 10/25/2020 INFLUENZA (#1) 2025 07/28/2021, 0910/2017 (External Completion of Vaccination per patient) DTAP/TDAP/TD (2 - Td or Tdap) 10/10/2029 10/11/2019 PNEUMOCOCCAL VACCINE FOR HIG H RISK PATIENTS (#2) 2042 10/11/2019, 12/01/2018 Care Teams Master Control Engineer Relationship Specialty Start Date End Date Kate Phillip MD PCP - General Internal Medicine 07/22/22
--- OUTSIDE RECORDS SUMMARY | 2025-07-30 17:29 | XMS_ITS | Encounter Summary ---
Author Organization [employer] [facility] Prior to 06/09/2024 Address [address] [place] [address] Care Team Providers Care Venetian Blind Machine Operator Name Role Phone Kate Phillip MD Primary Care Provider [phone] Reason for Visit * Reason Onset Date Comments Prior Authorization 01/18/2023 Encounter Details Date Type Department Care Team Description 01/18/2023 Telephone Internal Medicine - [address], [address] [place] [address] Kate Phillip MD [address] [place] [phone] Prior Authorization Social History Tobacco Use [...] 1:26 PM EDT Spoke with Nithya from [facility] who stated that the glitch in there system is fixed and if this is run under todays date it will go through. Called pts Krzysztof ran it and it went through. * Telephone Encounter - Neetu Brooks - 01/18/2023 11:51 AM EDT Prior Authorization for Medication-do not complete and send this encounter unless you have the fax from the pharmacy. Is this a Cover My Meds request: [place] of Medication metformin (GLUCOPHAGE-XR) 500 MG 24 hr tablet Dose of Medication 500 MG ER What is the RX # from the faxed refill? [id number] How does patient take this med? What Pharmacy did the fax come from: [facility] fax #: [phone] [employer] Information from fax: What Prescription Plan does the patient have? Commercial [id number] BIN/PCN if applicable: [id number] Cardholder ID: Person Code: Relationship Code: Help desk phone: [phone] documented in this encounter Plan of Treatment Not on file documented as of this encounter Visit Diagnoses Not on filedocumented in this encounter Care Teams Venetian Blind Machine Operator Relationship Specialty Start Date End Date Kate Phillip MD PCP - General Internal Medicine 07/22/22 documented as of this encounter
--- OUTSIDE RECORDS SUMMARY | 2025-07-30 17:29 | XMS_ITS | Encounter Summary ---
Author Organization [facility] [facility] Prior to 06/09/2024 Address [address] [place] [address] Care Team Providers Care Design Printing Machine Setter Name Role Phone Valentine Walters MD Primary Care Provider U Kate Martinez MD Primary Care Provider [phone] Reason for Visit * Reason Onset Date Comments medication problems 12/27/2020 Encounter Details Date Type Department Care Team Description 12/27/2020 Telephone Pulmonology - [place] [address] [facility] [address] [place] [address] Chilango Ramirez MD [address] [facility] [address] [place] [address] medication problems Social History Tobacco [...] EDT Who is calling? A pharmacist: Pharmacy: [facility] Pharmacist Name: N/A Pharmacy Name of [...] on filedocumented in this encounter Care Teams Design Printing Machine Setter Relationship Specialty Start Date End Date Valentine Walters MD PCP - General Internal Medicine 08/24/1807/09 Kate Phillip MD PCP - General Internal Medicine 07/22/22 documented as of this encounter
--- OUTSIDE RECORDS SUMMARY | 2025-07-30 17:29 | XMS_ITS | Encounter Summary ---
Author Organization [facility] Prior to 06/09/2024 Address [address] [place] [address] Care Team Providers Care Product/Industry Consultant Name Role Phone Valentine Walters MD Primary Care Provider U miguelitoailKate Hood MD Primary Care Provider [phone] Encounter Details Date Type Department Care Team Description 01/14/2021 Orders Only Medical Records [address] [place] [id number] Abstract, Provider Social History Tobacco Use Types [...] on filedocumented in this encounter Care Teams Product/Industry Consultant Relationship Specialty Start Date End Date Valentine Walters MD PCP - General Internal Medicine 08/24/1807/09 Kate Phillip MD PCP - General Internal Medicine 07/22/22 documented as of this encounter
--- OUTSIDE RECORDS SUMMARY | 2025-07-30 17:29 | XMS_ITS | Encounter Summary ---
Author Organization [facility] Prior to 06/09/2024 Address [address] [place] [address] Care Team Providers Care Sugar Sampler Name Role Phone Valentine Walters MD Primary Care Provider U Kate Martinez MD Primary Care Provider [phone] Reason for Visit * Reason Onset Date Comments Note, Other 06/04/2021 Encounter Details Date Type Department Care Team Description 06/04/2021 Telephone General Surgery - [address] [place] [address] Riana Jordan, MS,RDN,LDN Note, Other Social History Tobacco Use Types Packs/Day Years [...] have Coronavirus / COVID-19? No / Unsure 06/02/2021 8:50 AM EDT documented as of this encounter Miscellaneous Notes * Telephone Encounter - Radha Chacko - 06/04/2021 8:58 AM EDT Patient dropped off questionaire for you and I put it in your drawer. documented in this encounter Plan of Treatment Not on file documented as of this encounter Visit Diagnoses Not on filedocumented in this encounter Care Teams Sugar Sampler Relationship Specialty Start Date End Date Valentine Walters MD PCP - General Internal Medicine 08/24/1807/09 Kate Phillip MD PCP - General Internal Medicine 07/22/22 documented as of this encounter
--- OUTSIDE RECORDS SUMMARY | 2025-07-30 17:29 | XMS_ITS | Encounter Summary ---
Author Organization [facility] Prior to 06/09/2024 Address [address] [place] [address] Care Team Providers Care Silverware Buffer Name Role Phone Valentine Walters MD Primary Care Provider U Kate Martinez MD Primary Care Provider [phone] Encounter Details Date Type Department Care Team Description 09/28/2019 Orders Only Medical Records [address] [place] [address] Mary Ann Rausch PA-C [address] [place] [address] Social History Tobacco Use Types Packs/Day Years [...] Name Priority Date/Time Associated Diagnosis Comments OUTSIDE ECHO Routine 09/15/2019 documented in this encounter Results * OUTSIDE ECHO (09/15/2019) Mary Ann Rausch PA-C CARDIOLOGY documented in this encounter Visit Diagnoses Not on filedocumented in this encounter Care Teams Silverware Buffer Relationship Specialty Start Date End Date Valentine Walters MD PCP - General Internal Medicine 08/24/1807/09 Kate Phillip MD PCP - General Internal Medicine 07/22/22 documented as of this encounter
--- OUTSIDE RECORDS SUMMARY | 2025-07-30 17:29 | XMS_ITS | Encounter Summary ---
Author Organization [facility] Prior to 06/09/2024 Address [address] [place] [address] Care Team Providers Care Rack Puncher Name Role Phone Valentine Walters MD Primary Care Provider U Kate Martinez MD Primary Care Provider [phone] Reason for Visit * Reason Onset Date Comments Prior Authorization 01/28/2021 Encounter Details Date Type Department Care Team Description 01/28/2021 Telephone Pulmonology - [facility] [address] [facility] [address] [place] [address] Chilango Ramirez MD [address] [facility] [address] [place] [address] Prior Authorization Social History Tobacco Use Types [...] encounter Miscellaneous Notes * Telephone Encounter - Charlotte Fletcher M.A. - 01/30/2021 10:31 AM EDT Dx code:J45.40 Moderate persistant asthma Prior authorization done by phone to for Trelegy Elipta 100-62.5-25 mcg/inh. Approved from 01/30/2021-01/30/2022. Case # [id number]. [facility] notified by phone and paid claim went through. * Telephone Encounter - Cheyanne Giovanna - 01/30/2021 10:27 AM EDT Prior Authorization for Medication-do not complete and send this encounter unless you have the fax from the pharmacy. Is this a Cover My Meds request: Yes -- [place] Code [id number] Name of Medication Trelegy Ellipta Dose of Medication 100-62.5-25MCG/INH What is the RX # from the faxed refill? How does patient take this med? Inhale 100 mcg into the lungs daily for 90 days. This medication has inhaler steroid: Rinse mouth with water and expectorate after each dose to prevent oral/esophagealcandidiasis or fungal infection What Pharmacy did the fax come from: [facility] fax #: [phone] [employer] Party Information from fax: What Prescription Plan does the patient have? BIN/PCN if applicable: Cardholder ID: Person Code: Relationship Code: Help desk phone: * Telephone Encounter - Vicki Wylie - 01/28/2021 4:37 PM EDT Tiffani calling [employer] [facility] requesting that a PA be initiated for trelegy ellipta, insurance does not cover and patient was advise to contact insurance for alternative (see telephone call 01/24/21) however, was told providers office should be calling. Please advise documented in this encounter Plan of Treatment Not on file documented as of this encounter Visit Diagnoses Not on filedocumented in this encounter Care Teams Rack Puncher Relationship Specialty Start Date End Date Valentine Walters MD PCP - General Internal Medicine 08/24/1807/09 Kate Phillip MD PCP - General Internal Medicine 07/22/22 documented as of this encounter
== END 2025-07-30 13:32 | disposition home or self-care (01) ==
LOC: HO.LAB 13:31
PROVIDERS: PCP Nurse Practitioner Primary Care; Visit Provider Nurse Practitioner Family
DX: N39.41 Urge incontinence (principal); R31.29 Other microscopic hematuria; R35.0 Frequency of micturition; N13.8 Other obstructive and reflux uropathy
CPT/HCPCS: 88112

== ENCOUNTER 2025-07-30 13:31 | Outpatient (AMB) | payer OTHER, SELFPAY ==
--- NOTE | 2025-07-30 13:32 | A.OFFVIS_ITS ---
Intake Visit Reasons: 6m/PVR/UA Intake Note: Patient presents today for a 6 mo follow-up on: incontinence, urgency, and frequency Meds- Oxybutynin Allergies to Antibiotic- No Known Allergies Blood Thinner- None Post Void Residual: 0ml's Psychologist Engineering Required: Yes Psychologist Engineering Services: Psychologist Engineering Offered & Declined Accompanied by: Daughter Allergies No Known Allergies Allergy (Verified 07/30/25 13:56) Medication List - Last Reconciled 07/30/25 by MARLEEN Joseph- albuterol sulfate 90 mcg/actuation (Ventolin HFA) 2 puffs inhalation Q6H PRN albuterol sulfate 2.5 mg (3 mL) inhalation Q4-6H PRN amlodipine 2.5 mg PO DAILY benzonatate 200 mg PO BID PRN 30 days cholecalciferol (vitamin D3) 50 mcg PO DAILY CPAP (CPAP Machine/Device) As directed enalapril maleate 20 mg PO BID famotidine (Heartburn Relief (famotidine)) mg PO fluticasone furoate-vilanterol 200-25 mcg/dose (Breo Ellipta) 1 inh inhalation DAILY 30 days furosemide (Lasix) 20 mg PO DAILY hydroxyzine HCl 25 mg PO BID PRN loratadine 10 mg PO DAILY metformin ER 500 mg PO DAILY montelukast 10 mg PO DAILY 90 days nebulizers As directed oxybutynin chloride ER 20 mg (2 x 10 mg) PO DAILY 90 days roflumilast 500 mcg PO DAILY umeclidinium 62.5 mcg/actuation (Incruse Ellipta) 1 inh inhalation DAILY 30 days HPI Comments Details: Mariaelena is a very pleasant 49-year-old [place] African-speaking female patient of Dr. Calles who was accompanied by her daughter at today's office visit. She has a past medical history of anxiety, depression, bipolar disorder, hypertension, asthma, and obesity. She presents to the office today for follow-up. In discussion with the patient today she reports to be doing and feeling well. She reports compliance with oxybutynin as prescribed and discusses how this has significantly improved her episodes of urinary urgency and frequency. She also reports feeling this has significantly improved her quality of life. In office urinalysis results reviewed with the patient today. PVR 0mL. Previous workup has included a retroperitoneal ultrasound 05/31 noting bilateral kidneys with no hydronephrosis, and or calculi seen. The bladder is partially distended. Bilateral ureteral jets are demonstrated. Pre void bladder volume is approximately 165 mL. Postvoid bladder volume is approximately 30 mL. She has a history of having four childbirths. Discussed at length potential causes for lower urinary tract symptoms patient was experiencing. She otherwise denies hematuria, dysuria, foul smelling urine, changes to urinary stream, flank pain, fever, and or chills. All questions were answered. She otherwise offers no other issues or concerns at this time. [facility] Medical History Asthma-COPD overlap syndrome Anxiety Depression Bipolar disorder Hypertension Asthma Social History Alcohol intake: never Patient Tobacco Use Status: Never used Tobacco Review of Systems Const Reports no additional complaints Eyes Reports no additional complaints ENT Reports no additional complaints Card Reports as per HPI Resp Reports as per HPI GI Reports no additional complaints Reports as per HPI Neuro Reports as per HPI Psych Reports as per HPI Endo Reports no additional complaints Physical Exam Const General: cooperative, healthy appearing, comfortable, no acute distress, well developed, alert and awake Nutritional Appearance: overweight Orientation/consciousness: patient oriented x3 Limitations: no limitations HEENT Head: Yes normal to inspection, Yes normocephalic and Yes atraumatic Ears: hearing grossly normal bilaterally Eyes General: appearance normal, both eyes and all related structures Neck Neck: Yes normal visual inspection and Yes trachea midline Chest Chest palpation & inspection: normal inspection of the chest Resp Effort & Inspection: normal respiratory effort and able to speak in complete sentences Cardio Rate: regular rate GI Inspection: Yes normal to inspection General: Yes no CVA tenderness Back/Spine/Pelvis Back: no CVA tenderness Skin General skin exam: no rashes or lesions noted Neuro General: patient oriented x3 Extrem General: Yes normal to inspection Psych Appearance: grossly normal and well kempt Mental Status: mental status grossly normal Speech and movement: Normal speech and movement present and Clear speech present Affect: normal affect Attitude: cooperative Thought process: Normal thought process present Thought content: Normal thought content present Insight: Fair insight present (Psych) Judgement: Fair judgement present (Psych) Office Procedures Post Void Residual Post Residual Void Post Void Residual (PVR): 0 [id number] Void Residual by ultrasound Results AMB Urinalysis, Automated UA Leukoctes 0 Rafi/uL Last Edit by Becky Dayron [facility] on 07/30/25 13:42 UA Nitrite Negative Last Edit by Becky Colon, [facility] on 07/30/25 13:42 UA Urobilinogen 0.2 mg/dL Last Edit by Becky Colon, [facility] on 07/30/25 13:42 UA Protein 15 mg/dL Last Edit by Becky Franklinton, [facility] on 07/30/25 13:42 UA pH 6.0 Last Edit by Becky Franklinton, [facility] on 07/30/25 13:42 UA Blood 80 Tremaine/uL Last Edit by Becky Franklinton, [facility] on 07/30/25 13:42 UA Specific [place] 1.020 Last Edit by Becky Colon, [facility] on 07/30/25 13:4 2 UA Ketone Negative Last Edit by Becky Franklinton, [facility] on 07/30/25 13:42 UA Bilirubin 0 mg/dL Last Edit by Becky Colon, [facility] on 07/30/25 13:42 UA Glucose 0 mg/dL Last Edit by Becky Franklinton, [facility] on 07/30/25 13:42 Results Reviewed Results Reviewed: Laboratory Last Values Urine pH (Auto) 6.0 07/30/25 13:41 Specific [place] (Auto) 1.020 07/30/25 13:41 Urine Protein (Auto) 15 mg/dL 07/30/25 13:41 Glucose (UA)(Auto) 0 mg/dL 07/30/25 13:41 Urine Ketones (Auto) Negative 07/30/25 13:41 Urine Blood (Auto) 80 [place]remaine/uL 07/30/25 13:41 Urine Nitrite (Auto) Negative 07/30/25 13:41 Urine Bilirubin (Auto) 0 mg/dL 07/30/25 13:41 Urine Urobilinogen (Auto) 0.2 mg/dL 07/30/25 13:41 Leukocyte Esterase (Auto) 0 Rafi/uL 07/30/25 13:41 Assessment & Plan Assessment & Plan (1) Urinary urgency: Code(s): R39.15 - Urgency of urination Category: Medical (2) Urinary frequency: Code(s): R35.0 - Frequency of micturition Category: Medical (3) Urinary incontinence, urge: Code(s): N39.41 - Urge incontinence Category: Medical Plan In office urinalysis results reviewed with the patient today; as noted above; will send for urine cytology PVR 0 mL. Continue oxybutynin 20 mg as discussed and prescribed; refill provided Discussed at length importance of losing weight for improvement in lower urinary tract symptoms as well as overall health and well-being. Discussed near future in office cystoscopy or urodynamics if symptoms arise and or worsen. Follow-up in 6 months with PVR; or sooner with any issues, concerns, and or questions. Orders: Orders AMB Urinalysis Automated Today N13.8 - Other obstructive and reflux uropathy, N40.1 - Benign prostatic hyperplasia with lower urinary tract symptoms AMB Post Void Residual by ultrasound Today N40.1 - Benign prostatic hyperplasia with lower urinary tract symptoms Urine Cytology Today R31.29 - Other microscopic hematuria Medications: Refilled oxybutynin chloride ER 20 mg (2 x 10 mg) PO DAILY 90 days 180 tabs 3RF N32.81 - Overactive bladder oxybutynin chloride ER 20 mg (2 x 10 mg) PO DAILY 180 tabs 3RF 90 days N32.81 - Overactive bladder Patient Instructions: The patient had an opportunity to ask questions regarding the treatment plan. All questions were answered. Physical exam, labs, and imaging were discussed and reviewed in detail. As well as risks, benefits, and discussion of treatment choices. No major barriers to understanding were identified. The patient expressed understanding and agreement with the above treatment plan. The patient was made aware they should contact our office by phone for worsening of their current condition, the appearance of new symptoms, or with any questions or concerns. Compliance is encouraged with any medications and follow up testing that is ordered. It is a privilege to be allowed the opportunity to participate in? your urological care.? Again, if you have any questions or concerns If you have any questions or concerns please do not hesitate to contact me. The office is [phone]. This note is constructed using voice recognition software. While every effort has been made to ensure accuracy african studies professor errors may have been included. Yours sincerely, CHARISSE Joseph Coding Level of Care Code Est Pt Level 3 (03325) Add On Problem Visit Only Diagnoses Urinary urgency R39.15 Urinary frequency R35.0 Urinary incontinence, urge N39.41 CPT Codes Post Residual Void - PVR CPT Code: 14353-Ibpu Void Residual by ultrasound ([id number])
--- OUTSIDE RECORDS SUMMARY | 2025-07-30 16:56 | XMS_ITS | Clinical Summary ---
Author Organization [facility] Address [address] [place] [address] Phone Care Team Providers Care Patrol Officer Name Role Phone Kate Phillip MD Primary Care Provider [phone] Allergies No known active allergies Medications Autolet [...] a day Dx: E11.9 04/14/20 23 Active budesonide/form oterol fumarate (SYMBICORT INHL) 05/27/20 17 Active acetaminophen (TYLENOL) 500 mg [...] Active docusate sodium (Colace) 100 mg capsule 05/27/20 17 Active DULoxetine (CYMBALTA) [address] capsule 02/23/20 24 Active famotidine (PEPCID) 10 mg tablet Take 1 tablet (10 mg total) by mouth 2 (two) times a day. 03/08/20 24 Active fluticasone-ume clidinium-vilan terol (Trelegy Ellipta) 200-62.5-25 mcg inhaler Inhale 1 Puff into the lungs daily. 12/06/19 22 Active gabapentin (NEURONTIN) 300 mg capsule See Instructions, 3 capsules By Mouth in AM and PM and 4 capsules at bedtime. Label in Croatian. 10 capsules/day, # 300 capsule, Refills 5, Tot. Refills 5, Maintenance, 07/13/18 17:38:14 EST, Instructions Replace Required Details, Route to Pharmacy El... 07/13/20 18 Active hydrOXYzine pamoate (VISTARIL) 25 mg capsule 05/31/20 24 Active lamoTRIgine (LaMICtal) 25 mg tablet 07/04/20 13 Active meloxicam (MOBIC) 7.5 mg tablet 01/19/20 18 Active montelukast (SINGULAIR) 10 mg tablet Take 1 tablet (10 mg total) by mouth 1 (one) time each day. 12/26/19 23 Active oxyBUTYnin XL (DITROPAN-XL) 10 mg 24 hr tablet 06/20/20 24 Active QUEtiapine (SeroqueL) 100 mg tablet 08/29/19 11 Active ramelteon (Rozerem) 8 mg tablet 04/12/20 23 Active roflumilast (DALIRESP) 500 mcg tablet Take by mouth. Acti ve sodium chloride (AYR) 0.65 % nasal drops Administer into affected nostril(s). 09/01/19 20 Active topiramate (TOPAMAX) 50 mg tablet 1 tablet = 50 mg, By Mouth, 2 times a day, Label in Croatian., # 60 tablet, 5 Refills, Maintenance, 01/18/18 14:49:34 EDT, Tablet 01/19/20 18 Active triamcinolone (KENALOG) 0.025 % cream 03/01/20 19 Active triamcinolone (NASACORT) 55 mcg nasal inhaler 55 mcg by Nasal route daily. 12/27/19 21 Active Incruse Ellipta 62.5 mcg/actuation inhalation 06/26/20 24 Active glucose blood test strip Use as instructed 100 each 3 08/21/19 25 Active loratadine (CLARITIN) 10 mg tablet Take 1 tablet (10 mg total) by mouth 1 (one) time each day. 30 tablet 3 08/21/19 25 Active miscellaneous medical supply (Blood Pressure Cuff) miscIndications :Primary hypertension,Mo rbid obesity (CMS/HCC V24, CMS/HCC V28) 1 each 1 (one) time each day. 1 each 11/09/19 25 Active Trulicity 3 mg/0.5 mL pen injector injection INJECT 0.5 ML (3 MG TOTAL) UNDER THE SKIN EVERY 7 (SEVEN) DAYS. 2 mL 2 01/03/20 25 Active enalapril (VASOTEC) 20 mg tablet Take 2 tablets (40 mg total) by mouth 1 (one) time each day. 60 each 5 02/01/20 25 Active ferrous sulfate 324 mg (65 mg elemental iron) EC tablet Take 1 tablet (324 mg total) by mouth 2 (two) times a day. 60 tablet 1 02/29/20 25 Active incontinence pad, liner, disp padIndications: Urinary incontinence, unspecified type 1 each 1 (one) time each day. 96 each 11 03/20/20 25 Active ciprofloxacin (CIPRO) 250 mg tablet Take 1 tablet (250 mg total) by mouth 2 (two) times a day. 10 each 04/18/20 25 Active ibuprofen (ADVIL,MOTRIN) 800 mg tablet Take 1 tablet (800 mg total) by mouth every 8 (eight) hours if needed for mild pain. 30 tablet 05/07/20 25 Active metFORMIN XR (GLUCOPHAGE-XR) 500 mg 24 hr tablet Take 1 tablet (500 mg total) by mouth 1 (one) time each day. 90 tablet 1 05/07/20 25 Active Pure Comfort Safety Lancets 30 gauge misc USE THREE TIMES DAILY 100 each 1 05/23/20 25 Active amLODIPine (NORVASC) 5 mg tablet Take 1 tablet (5 mg total) by mouth 1 (one) time each day. 30 each 5 06/12/20 25 026 Active losartan (Cozaar) 50 mg tablet Take 1 tablet (50 mg total) by mouth 1 (one) time each day. 30 each 5 06/12/20 25 026 Active cholecalciferol (VITAMIN D-3) 50 mcg (2,000 unit) capsule TAKE 1 CAPSULE BY MOUTH DAILY. 90 capsule 1 06/29/20 25 Active dulaglutide (Trulicity) 4.5 mg/0.5 mL pen injector injectionIndica tions:Type 2 diabetes mellitus without complication, without long-term current use of insulin (CMS/Fiksu V24, CMS/Fiksu V28) Inject 0.5 mL (4.5 mg total) under the skin 1 (one) time per week. 2 mL 2 07/19/20 25 Active dulaglutide (TRULICITY) 4.5 mg/0.5 mL pen injector injectionIndica tions:Type 2 diabetes mellitus without complication, without long-term current use of insulin (CMS/Fiksu V24, CMS/Fiksu V28) Inject 0.5 mL (4.5 mg total) under the skin every 7 (seven) days. 2 mL 3 02/01/20 25 025 Discontinued Active Problems Problem Noted Date Diagnosed Date Urinary incontinence 04/06/2024 Migraine without status migrainosus, not intract able 04/14/2023 Chronic pain of both knees 04/14/2023 Type 2 diabetes mellitus 03/06/2022 COVID 12/29/2021 Lab test negative for COVID-19 virus 01/09/2021 Class 3 severe obesity with serious comorbidity and body mass index (BMI) of 60.0 to 69.9 in adult 02/22/2020 Allergic rhinitis due to pollen 12/01/2018 Moderate persistent asthma without complication 12/01/2018 SHAJI on CPAP 12/01/2018 Overview (07/28/2024): [facility] Home Sleep Apnea Test: Date 10/05/2019; Wt [...] oxygen saturation 97% (lowest 89%); PLMs 0. [facility] CPAP Polysomnogram: Date 02/14/2009; Wt 240#; BMI 47; SE 99%; SM 99%; REM 10%; CPAP @ 6 -> AHI 0.3; average oxygen saturation 93%. - Obstructive Sleep Apnea - severe; mostly hypopneas and obstructive apneas; with sleep related hypoventilation by 2019 home sleep apnea test. Post-nasal drainage 12/01/2018 Overlap syndrome 12/01/2018 Morbid obesity 11/29/2018 Anxiety 08/24/2018 Asthma 08/24/2018 Depression 08/24/2018 HTN (hypertension) 08/24/2018 Resolved Problems Problem Noted Date Diagnosed Date Resolved Date Bipolar disorder 08/24/2018 06/12/2025 Overview (07/28/2024): Followed by Dr Nahum Collins at [facility] family and [facility] Encounters Date Type Department Care Team Description 06/12/2025 1:30 PM EST Office Visit Internal Medicine - [address] [phone] Kate Phillip MD Adult general medical examination (Primary Dx); Gastroesophageal reflux disease, unspecified whether esophagitis present; Hearing difficulty of both ears; Primary hypertension; SHAJI on CPAP; Morbid obesity (CMS/HCC V24, CMS/HCC V28) 06/12/2025 Telephone Internal Medicine [address] [phone] Kate Phillip MD 05/17/2025 12:30 PM EDT Nutrition Bariatric Surgery - [place] [address] [facility] [address] [place] [address] Class 3 severe obesity with serious comorbidity and body mass index (BMI) of 60.0 to 69.9 in adult, unspecified obesity type (CMS/HCC V24, CMS/HCC V28) (Primary Dx) 05/02/2025 Telephone Internal Medicine - [place] [address] [facility] [address] [place] [address] Kortney George MA from Last 3 Months Immunizations Immunization Administration Dates Next Due Hepatitis A-Hepatitis B Adult (Twinrix) 18yo and older 10/11/2019 Influenza Quadrivalent, 0.5m l, preservative free (Fluarix; FluLaval; Fluzone) ages 6mo and older (Afluria) 3yo and older 07/12/2022,04/11/2018 Influenza trivalent, 0.5mL, preservative free (Fluarix; FluLaval; Fluzone) ages 6mo and older (Afluria) 3 years and older 10/20/2024 Influenza, Unspecified 07/28/2021 Moderna SARS-CoV-2 COVID-19, mRNA, LNP-S, preservative free 12/30/2020,10/25/2020 Pneumococcal conjugate 13 va lent (Prevnar 13, PCV13) 2mo and older 12/01/2018 Pneumococcal conjugate 20 va lent (Prevnar 20, PCV 20) 2mo and older 04/30/2023 Pneumococcal polysaccharide 23 valent (Pneumovax 23) 2yo and older 10/11/2019 Tdap Tetanus diptheria acell ular pertussis (Boostrix; Adacel) 7yo and older 10/11/2019 Typhoid VICPS (Typhim Vi) 2yo and older 10/11/19 20 Surgical History Surgery Date Site/Laterality Comments OTHER SURGICAL HISTORY PROCEDURE: DENIES PREVIOUS SURGERY Medical History Medical History Date Comments HTN (hypertension) 08/24/2018 DX:HTN (hyper tension) Asthma 08/24/2018 DX:Asthma Bipolar disorder (CMS/HCC V2 4, CMS/HCC V28) 08/24/2018 DX:Bipolar disorder ([facility]) Anxiety 08/24/2018 DX:Anxiety Depression 08/24/2018 DX:Depression Type 2 diabetes mellitus (CM S/HCC V24, CMS/HCC V28) 03/06/2022 DX:Type 2 diabetes mellitus (HCC) Family [...] = 0.6 oz pur e alcohol) Comments No Sex and Gender Information Value Date Recorded Sex Assigned at Female 07/26/2024 8:44 PM EST Legal Sex Female 4:34 AM EST Gender Identity Female 07/26/2024 8:44 PM EST Sexual Orientation Straight 07/26/2024 8: 44 PM EST Obstetrics History Para Term AB IAB SAB Ectopic Multiple Livin g Live Births 4 Last Filed Vital Signs Vital Sign Reading Time Taken Comments Blood Pressure 157/100 06/12/2025 1:36 PM EST Pulse 77 06/12/2025 1:36 PM EST Temperature 36.2 C (97.2 F) 06/12/2025 1:36 PM EST Respiratory Rate 18 06/12/2025 1:36 PM EST Oxygen Saturation 97% 06/12/2025 1:36 PM EST Inhaled Oxygen Concentration - - Weight 140 kg (309 lb) 06/12/2025 1:36 PM EST Height 154.9 cm (5' 1 ) 06/12/2025 1:36 PM EST Body Mass Index 58.39 06/12/2025 1:36 PM EST Plan of Treatment Upcoming Encounters Date Type Department Care Team (Late st Contact Info) Description 08/20/2025 1:00 PM EST Nutrition Bariatric Surgery - [place] [address] [phone] Evy Pérez, RD 175 [facility] [address] [place] [address] 12/05/2025 1:00 PM EDT Office Visit Internal Medicine - [place] [address] [facility] [address] [place] [address] Kate Phillip MD [address] [place] [address] Health Maintenance Due Date Last Done Comments Colorectal Cancer Screening: Colonoscopy 1977 Diabetes: Annual Foot Exam 11/16/1987 Cervical Cancer Screening: Pap Smear 1998 Hepatitis B Vaccines (2 of 3 - Hep B Twinrix 3-dose series) 11/08/2019 10/11/2019 HIV Screening 07/18/2022 Hepatitis C Screening 07/18/2022 Social Influencers of Health Screening 07/18/2022 Diabetes: Annual Urine Albumin-Creatinine Ratio (uACR) 07/25/2022 Diabetes: Annual Retina Eye Exam 10/25/2024 10/26/2023 COVID-19 Vaccine ( season) 2025 12/30/2020, 12/02/2020, 10/25/2020 Influenza Vaccine (#1) 2025 , 07/12/2022, 07/28/2021, Additional history exists Diabetes: Blood Sugar Control Test (HGBA1C) 08/30/2025 02/27/2025, 04/06/2024, 04/06/2024 Diabetes: Annual GFR (Glomerular Filtration Rate) 02/27/2026 02/27/2025, 02/01/2025, 07/26/2024, Additional history exists Hypertension/CHF/CAD Annual BMP Blood Test 02/27/2026 02/27/2025, 02/01/2025, 07/26/2024, Additional history exists Breast Cancer Screening 03/20/2027 03/20/20, 04/30/2022, 01/17/2020, Additional history exists Pneumococcal Vaccine: Pediatrics (0 to 5 Years) and At-Risk Patients (6 to 49 Years) (3 of 3 - PCV20 or PCV21) 04/30/2028 04/30/2023, 10/11/2019, 12/01/2018 DTaP,Tdap,and Td Vaccines (2 - Td or Tdap) 10/10/2029 10/11/2019 Cholesterol Screening (Lipid Panel) 02/27/2030 02/27/2025, 06/15/2023 RSV Immunization Adult Patients (1 - 1-dose 75+ series) 2052 Hepatitis A Vaccines Aged Out 10/11/2019 No long er eligible based on patient's age to complete this topic Depression Screening Completed 06/12/2025 HIB Vaccines Aged Out No longer eligi [...] age to complete this topic Meningococcal B Vaccine Aged Out No l onger eligible based on patient's age to complete this topic RSV Immunization Patients Under 20 months Aged Out No longer eligible based on patient's age to complete this topic Varicella Vaccines Aged Out No longer eligible based on patient's age to complete this topic Procedures Procedure Name Priority Date/Time Associated Diagnosis Comments MG MAMMO DIGITAL SCREENING W LANG BILAT Routine 03/20/2025 2:42 PM EDT Encounter for screening mammogram for breast cancer COMPREHENSIVE METABOLIC PANEL Routine 02/27/2025 11:37 AM EDT Class 3 severe obesity with serious comorbidity and body mass index (BMI) of 60.0 to 69.9 in adult, unspecified obesity type (CMS/HCC V24, CMS/HCC V28) HEMOGLOBIN A1C Routine 02/27/2025 11:37 AM EDT Class 3 severe obesity with serious comorbidity and body mass index (BMI) of 60.0 to 69.9 in adult, unspecified obesity type (CMS/HCC V24, CMS/HCC V28) LIPID PANEL WITH REFLEX TO DIRECT LDL Routine 02/27/2025 11:37 AM EDT Class 3 severe obesity with serious comorbidity and body mass index (BMI) of 60.0 to 69.9 in adult, unspecified obesity type (CMS/HCC V24, CMS/HCC V28) HM DIABETES EYE EXAM Routine 10/26/2023 from Last 3 Months or Most Recently Relevant to Health Maintenance Results * MG Mammo Digital Screening w Lang bilat (03/20/2025 2:42 PM EDT) Anatomical Region Laterality Modality Breast Bilateral Mammography 03/21/2025 6:49 AM EDT Impressions 03/21/2025 6:56 AM EDT No mammographic evidence of malignancy. No suspicious interval change. A negative mammogram in the presence of a clinically suspicious palpable abnormality does not preclude the possibility of malignancy or alter the indications for biopsy. ASSESSMENT: BI-RADS 1: NEGATIVE RECOMMENDATION(S): 1: Routine screening mammogram BILATERAL in 1 year. [facility] [address], [address] -------- FINAL REPORT -------- Dictated By: Anthony Webster Dictated Date: 03/21/2025 06:49 ET Assigned Physician: Anthony Webster Reviewed and Electronically Signed By: Anthony Webster Signed Date: 03/21/2025 06:56 ET Workstation ID: [id number] Transcribed By: Self Edit Transcribed Date: 03/21/2025 06:49 ET Narrative 03/21/2025 6:56 AM EDT EXAM: SCREENING MAMMOGRAPHY, BILATERAL HISTORY: SCREENING. No additional history. COMPARISON: 04/29/22, 01/17/20 TECHNIQUE: Synthesized CC and MLO projections of each breast. Tomosynthesis of each breast in the CC and MLO projections. ADDITIONAL IMAGING: None Computer-aided detection was employed with the iCAD [employer] AI 3-D. TISSUE DENSITY: There are scattered areas of fibroglandular density. (BI-RADS category B) FINDINGS: RIGHT BREAST: No suspicious mass. No suspicious calcification. No distortion. No additional suspicious right breast findings LEFT BREAST: No suspicious mass. No suspicious calcification. No distortion. No additional suspicious left breast findings Procedure Note Anthony Webster MD - 03/21/2025 EXAM: SCREENING MAMMOGRAPHY, BILATERAL HISTORY: SCREENING. No additional history. COMPARISON: 04/29/22, 01/17/20 TECHNIQUE: Synthesized CC and MLO projections of each breast.Tomosynthesis of each breast in the CC and MLO projections. ADDITIONAL IMAGING: None Computer-aided detection was employed with the iCAD [employer] AI 3-D. TISSUE DENSITY: There are scattered areas of fibroglandular density.(BI-RADS category B) FINDINGS: RIGHT BREAST: No suspicious mass. No suspicious calcification. No distortion. Noadditional suspicious right breast findings LEFT BREAST: No suspicious mass. No suspicious calcification. No distortion. Noadditional suspicious left breast findings IMPRESSION: No mammographic evidence of malignancy. No suspicious interval change. A negative mammogram in the presence of a clinically suspicious palpableabnormality does not preclude the possibility of malignancy or alter theindications for biopsy. ASSESSMENT: BI-RADS 1: NEGATIVE RECOMMENDATION(S): 1: Routine screening mammogram BILATERAL in 1 year. [facility]amm[facility] location[facility] [address], [address] -------- FINAL REPORT -------- Dictated By: Anthony Webster Dictated Date: 03/21/2025 06:49 ET Assigned Physician: Anthony Webster Reviewed and Electronically Signed By: Anthony Webster Signed Date: 03/21/2025 06:56 ET Workstation ID: [id number] Transcribed By: Self Edit Transcribed Date: 03/21/2025 06:49 ET us Self Referral Sppl IMG BI PROCEDURES Final Resul t * (ABNORMAL) Lipid panel with reflex to direct LDL (02/27/2025 11:37 AM EDT) Cholesterol 187 0 - 200 mg/dL LAB CHEMISTRY METHOD 02/27/2025 5:21 PM EDT [facility] Triglycerides 124 0 - 150 mg/dL LAB CHEMISTRY METHOD 02/27/2025 5:21 PM EDT [facility] HDL 54 >=40 mg/dL LAB CHEMISTRY METHOD 02/27/2025 5:21 PM EDT [facility] LDL Calculated 108(H) 0 - 100 mg/dL LAB CHEMISTRY METHOD 02/27/2025 5:21 PM EDT [facility] VLDL Cholesterol Jason 24.8 mg/dL LAB CHEMISTRY METHOD 02/27/2025 5:21 PM EDT [facility] Non HDL Chol. (LDL+VLDL) 133 <145 mg/dL LAB CHEMISTRY METHOD 02/27/2025 5:21 PM EDT [facility] Chol/HDL Ratio 3.5 0.0 - 4.4 LAB CHEMISTRY METHOD 02/27/2025 5:21 PM EDT [facility] Blood Venous blood specimen / Unknown Venipuncture / Unknown 02/27/2025 11:37 AM EDT 02/27/2025 11:37 AM EDT us Alban Garcia MD LAB BLOOD ORDERABLES Final R esult [facility] [address] [place] [address], [place] [phone] * Hemoglobin A1c (02/27/2025 11:37 AM EDT) Hemoglobin A1C 6.0 <6.5 % LAB CHEMISTRY METHOD 02/27/2025 5:57 PM EDT [facility] Mean Bld Glu Estim. 126 mg/dL LAB CHEMISTRY METHOD 02/27/2025 5:57 PM EDT [facility] Blood Venous blood specimen / Unknown Venipuncture / Unknown 02/27/2025 11:37 AM EDT 02/27/2025 11:37 AM EDT us Alban Garcia MD LAB BLOOD ORDERABLES Final R esult [facility] [address] [place] [address], [place] [phone] * (ABNORMAL) Comprehensive metabolic panel (02/27/2025 11:37 AM EDT) Sodium 139 133 - 145 mmol/L LAB CHEMISTRY METHOD 02/27/2025 5:21 PM [facility] Potassium 4.1 3.5 - 5.5 mmol/L LAB CHEMISTRY METHOD 02/27/2025 5:21 PM [facility] Chloride 107 96 - 110 mmol/L LAB CHEMISTRY METHOD 02/27/2025 5:21 PM [facility] CO2 26 21 - 32 mmol/L LAB CHEMISTRY METHOD 02/27/2025 5:21 PM [facility] Anion Gap 6 3 - 11 LAB CHEMISTRY METHOD 02/27/2025 5:21 PM [facility] Glucose 90 70 - 100 mg/dL LAB CHEMISTRY METHOD 02/27/2025 5:21 PM [facility] BUN 14 5 - 25 mg/dL LAB CHEMISTRY METHOD 02/27/2025 5:21 PM [facility] Creatinine 0.59 0.50 - 1.10 mg/dL LAB CHEMISTRY METHOD 02/27/2025 5:21 PM [facility] eGFR 112 >=60 mL/min/1. 73m2 LAB CHEMISTRY METHOD 02/27/2025 5:21 PM [facility] Comment:Calculation based on the Chronic Kidney Disease Epidemiology Collaboration (CKD-EPI) equation refit without adjustment for race. BUN/Creatinine Ratio 23.7 LAB CHEMISTRY METHOD 02/27/2025 5:21 PM [facility] Calcium 9.0 8.5 - 10.5 mg/dL LAB CHEMISTRY METHOD 02/27/2025 5:21 PM [facility] AST (SGOT) 12 10 - 42 unit/L LAB CHEMISTRY METHOD 02/27/2025 5:21 PM [facility] ALT (SGPT) 20 10 - 60 unit/L LAB CHEMISTRY METHOD 02/27/2025 5:21 PM EDT [facility] Alkaline Phosphatase 125(H) 42 - 121 unit/L LAB CHEMISTRY METHOD 02/27/2025 5:21 PM EDT [facility] Total Protein 7.3 6.0 - 8.0 g/dL LAB CHEMISTRY METHOD 02/27/2025 5:21 PM EDT [facility] Albumin 3.5 3.2 - 5.0 g/dL LAB CHEMISTRY METHOD 02/27/2025 5:21 PM EDT [facility] Total Bilirubin 0.3 0.0 - 1.4 mg/dL LAB CHEMISTRY METHOD 02/27/2025 5:21 PM EDT [facility] Blood Venous blood specimen / Unknown Venipuncture / Unknown 02/27/2025 11:37 AM EDT 02/27/2025 11:37 AM EDT Alban Garcia MD LAB BLOOD ORDERABLES Final R esult [facility] [address] [place] [address], * Diabetes Eye Exam (10/26/2023) Diabetes: Annual Retina Eye Exam abstracted Historical Provider HEALTH MAINTENANCE Final Result from Last 3 Months or Most Recently Relevant to Health Maintenance Insurance [facility] Care Teams Patrol Officer Relationship Specialty Start Date End Date Kate Phillip MD [address] [phone] PCP - General 07/22/22
== END 2025-07-30 13:53 | disposition home or self-care (01) ==
LOC: HO.HUSH 13:32
PROVIDERS: PCP Nurse Practitioner Primary Care; Visit Provider Nurse Practitioner Family
DX: R39.15 Urgency of urination (principal); R35.0 Frequency of micturition; N39.41 Urge incontinence; N40.1 Benign prostatic hyperplasia with lower urinary tract symptoms; N13.8 Other obstructive and reflux uropathy
CPT/HCPCS: 99213